=== PATIENT | female | born 1960 | race Caucasian/White ===

== ENCOUNTER → 2020-06-02 09:28 | Outpatient (CLI) | payer OTHER, SELFPAY ==
--- NOTE | ~2020-06-02 | MMUS_ITS ---
EXAMINATION: MM diagnostic [facility] BI w magdi, US breast LT complete HISTORY: Left lump felt by referring physician and patient (with skin marker on mammogram) TECHNIQUE: Bilateral ML, MLO and cc and left spot ML, MLO and cc 3-D tomosynthesis images were perfor med and synthetic 2-D images were generated. CAD analysis was submitted and interpreted. High resolut ion complete left breast ultrasound was performed. COMPARISON: Serial mammogram examinations dating back to 02/08/2015 BREAST PARENCHYMAL COMPOSITION: There are scattered areas of fibroglandular density. FINDINGS: MAMMOGRAPHIC FINDINGS: There is stable fibroglandular asymmetry. There is fatty tissue in the area of the clinical complaint of left breast lump based upon assessment of the position of the marker overlying the posterior inner left breast on craniocaudal projection. No interval suspicious mass or architectural distortion, malignant calcification, skin thickening or retraction of either breast is evident compared to prior studies. There is minimal benign calcificati on. ULTRASOUND: There is no evidence of focal abnormal solid or cystic lesion in the area of clinical complaint at 6: 00 7 cm from nipple. There is a parallel circumscribed hypoechoic or sonolucent 2.8 x 4.7 mm lesion at 10:00 4 cm from nip ple, without internal vascularity or suspicious shadowing, likely benign IMPRESSION: 1. No mammographic evidence of malignancy 2. Routine mammographic screening is recommended. BI-RADS Category 2: Benign finding(s). Reviewed, dictated and finalized at location A. IMPRESSION: 1. No mammographic evidence of malignancy 2. Routine mammographic screening is recommended. BI-RADS Category 2: Benign finding(s).
== END ==
PROVIDERS: Visit Provider Nurse Practitioner Obstetrics & Gynecology
DX: N63.20 Unspecified lump in the left breast, unspecified quadrant (principal); R92.2 Inconclusive mammogram
CPT/HCPCS: 76641; 77062; 77066; G0279

== ENCOUNTER → 2021-06-04 17:45 | Outpatient (CLI) | payer OTHER, SELFPAY ==
--- NOTE | ~2021-06-04 | MM_ITS ---
EXAMINATION: MM screening [facility] BI w magdi HISTORY: Screening TECHNIQUE: Craniocaudal and mediolateral oblique 3-D tomosynthesis images were obtained and synthetic 2-D images were generated. CAD analysis was submitted and interpreted. COMPARISON: Comparison to multiple prior studies sequentially, with oldest reviewed study dated 11/2014. BREAST PARENCHYMAL COMPOSITION: There are scattered areas of fibroglandular density. FINDINGS: There is a small developing mass in the upper inner quadrant of the left breast. The right breast is stable without evidence for malignancy. IMPRESSION: 1. Developing small left breast mass, upper inner quadrant. There is a possible adjacent focal asymme try, slightly more prominent than on prior examination. 2. Additional mammographic views and possible breast ultrasound are recommended. BI-RADS Category 0: Incomplete: Needs additional imaging evaluation. Reviewed, dictated and finalized at location A. IMPRESSION: 1. Developing small left breast mass, upper inner quadrant. There is a possible adjacent focal asymmetry, slightly more prominent than on prior examination. 2. Additional mammographic views and possible breast ultrasound are recommended . BI-RADS Category 0: Incomplete: Needs additional imaging evaluation.
== END ==
PROVIDERS: PCP Nurse Practitioner Family; Visit Provider Nurse Practitioner Obstetrics & Gynecology
DX: Z12.31 Encounter for screening mammogram for malignant neoplasm of breast (principal); R92.8 Other abnormal and inconclusive findings on diagnostic imaging of breast
CPT/HCPCS: 77063; 77067

== ENCOUNTER → 2021-07-06 08:17 | Outpatient (CLI) | payer OTHER, SELFPAY ==
--- NOTE | ~2021-07-06 | MMUS_ITS ---
EXAMINATION: MM diagnostic gerald LT w magdi, US breast LT limited HISTORY: Developing small left breast mass and adjacent asymmetry, upper inner quadrant reported on screening mammogram TECHNIQUE: Additional 3-D tomosynthesis images of the left breast were performed and synthetic 2-D im ages were generated. CAD analysis was submitted and interpreted. High resolution upper inner quadrant left breast ultrasound was performed. COMPARISON: 06/04/2021 bilateral screening mammogram 06/02/2020 bilateral diagnostic mammogram and left complete ultrasound 05/27/2019, 05/25/2018, 05/21/2017, 03/18/2016 bilateral screening mammograms FINDINGS: MAMMOGRAPHIC FINDINGS: There are 2 approximately 6-7 mm nodular appearing areas in the mid to upper inner left breast. ULTRASOUND: 10:00 4 cm from nipple: 5 x 2.2 x 2.7 mm parallel circumscribed hypoechoic lesion without internal va scularity or posterior shadowing, most likely benign. This is not significantly changed since 06/02/20 20. IMPRESSION: 1. Benign finding 2. Routine annual mammographic screening is recommended BI-RADS Category 2: Benign finding(s). Reviewed, dictated and finalized at location A. IMPRESSION: 1. Benign finding 2. Routine annual mammographic screening is recommended BI-RADS Category 2: Benign finding(s).
== END ==
PROVIDERS: PCP Nurse Practitioner Family; Visit Provider Nurse Practitioner Obstetrics & Gynecology
DX: R92.8 Other abnormal and inconclusive findings on diagnostic imaging of breast (principal)
CPT/HCPCS: 76642; 77061; 77065; G0279

== ENCOUNTER 2022-05-09 18:17 | Emergency (ER) | payer OTHER, SELFPAY ==
[2022-05-09 18:50] VITALS: BP 134/74; PULSE 91; RESP 16; TEMP 36.6; O2SAT 98
--- NOTE | 2022-05-09 19:42 | PC.NURSE ---
Addendum entered by Syeda Carreon RN 05/09/22 19:45: Pt has steady gait and no obvious distress noted at this time. Pt verbalized I'm going to try some other ER Original Note: Pt left ED lobby at this time. Pt A&Ox4, reps even non-labored.
== END 2022-05-09 19:42 | disposition left against medical advice (07) ==
LOC: ANHED 19:55
PROVIDERS: PCP Nurse Practitioner Family
DX: S61.210A Laceration without foreign body of right index finger without damage to nail, initial encounter (principal); W26.8XXA Contact with other sharp object(s), not elsewhere classified, initial encounter; Y93.G1 Activity, food preparation and clean up
CPT/HCPCS: 99199

== ENCOUNTER → 2022-06-28 14:50 | Outpatient (CLI) | payer BC, SELFPAY ==
--- NOTE | ~2022-06-28 | MM_ITS ---
EXAMINATION: MM screening [facility] BI w magdi HISTORY: Screening TECHNIQUE: Craniocaudal and mediolateral oblique 3-D tomosynthesis images were obtained and synthetic 2-D images were generated. CAD analysis was submitted and interpreted. COMPARISON: Comparison to multiple prior studies sequentially, with oldest reviewed study dated 05/21. BREAST PARENCHYMAL COMPOSITION: There are scattered areas of fibroglandular density. FINDINGS: Breast asymmetries are unchanged. There is no evidence of suspicious mass, calcification, o r architectural distortion to suggest malignancy in either breast. There has been no suspicious inter thelma change. IMPRESSION: 1. No mammographic evidence of malignancy. 2. Recommend routine screening mammography in one year. BI-RADS Category 1: Negative Reviewed, dictated and finalized at location A.
== END ==
PROVIDERS: PCP Nurse Practitioner Family; Visit Provider Nurse Practitioner Obstetrics & Gynecology
DX: Z12.31 Encounter for screening mammogram for malignant neoplasm of breast (principal)
CPT/HCPCS: 77063; 77067

== ENCOUNTER → 2023-07-11 13:42 | Outpatient (CLI) | payer BC, SELFPAY ==
--- NOTE | ~2023-07-11 | MM_ITS ---
EXAMINATION: MM screening [facility] BI w magdi HISTORY: Screening mammogram TECHNIQUE: Craniocaudal and mediolateral oblique 3-D tomosynthesis images were obtained and synthetic 2-D images were generated. CAD analysis was submitted and interpreted. COMPARISON: 06/28/2022, 07/06/2021, 06/04/2021, 06/02/2020 BREAST PARENCHYMAL COMPOSITION: There are scattered areas of fibroglandular density. FINDINGS: No suspicious mass, calcification, or architectural distortion are identified in either lea ast to suggest malignancy. There has been no suspicious interval change. IMPRESSION: 1. No mammographic evidence of malignancy. 2. Recommend routine screening mammography in one year. BI-RADS Category 1: Negative Reviewed, dictated and finalized at location A.
== END ==
PROVIDERS: PCP Nurse Practitioner Family; Visit Provider Nurse Practitioner Obstetrics & Gynecology
DX: Z12.31 Encounter for screening mammogram for malignant neoplasm of breast (principal)
CPT/HCPCS: 77063; 77067

== ENCOUNTER 2024-07-28 12:33 | Outpatient (CLI) | payer MEDICARE, SELFPAY ==
--- NOTE | ~2024-07-28 | MM_ITS ---
EXAMINATION: MM screening [facility] BI w magdi HISTORY: Screening mammogram TECHNIQUE: Craniocaudal and mediolateral oblique 3-D tomosynthesis images were obtained and synthetic 2-D images were generated. CAD analysis was submitted and interpreted. COMPARISON: 07/11/2023, 06/28/2022, 06/04/2021 BREAST PARENCHYMAL COMPOSITION:Not Dense. There are scattered areas of fibroglandular density. FINDINGS: No suspicious mass, calcification, or architectural distortion are identified in either lea ast to suggest malignancy. There has been no suspicious interval change. IMPRESSION: No mammographic evidence of malignancy. Recommend routine screening mammography in one year. BI-RADS Category 1: Negative Reviewed, dictated and finalized at location . [employer]
== END 2024-07-28 12:34 | disposition home or self-care (01) ==
LOC: CHSIMG 12:37
PROVIDERS: PCP Nurse Practitioner Family; Visit Provider Nurse Practitioner Family
DX: Z12.31 Encounter for screening mammogram for malignant neoplasm of breast (principal)
CPT/HCPCS: 77063; 77067

== ENCOUNTER 2024-09-23 12:38 | Outpatient (CLI) | payer MEDICARE, SELFPAY ==
--- NOTE | ~2024-09-23 | DEXA_ITS ---
Bone Density Report Name: CHARLES TEJADA Age: 64 Sex: Female Ethnicity: White Date of : 1960 Indication: postmenopausal; screening for osteoporosis; height loss; Referring Provider: INDIA CAMPOVERDE Study: Bone densitometry was performed. Exam Date: September 23, 2024 Accession number: [id number] Bone Density: Region BMD T-score Z-score Classification AP Spine(L1-L4) 1.312 2.4 4.2 Normal Femoral Neck (Left) 0.890 0.4 1.9 Normal Total Hip (Left) 1.173 1.9 3.2 Normal Femoral Neck (Right) 0.854 0.0 1.6 Normal Total Hip (Right) 1.166 1.8 3.1 Normal Femoral Neck Mean 0.872 0.2 1.8 Normal Total Hip Mean 1.169 1.9 3.1 Normal World Health Organization criteria for BMD impression classify patients as: Normal (T-score at or above -1.0), Osteopenia (T-score between -1.0 and -2.5), or Osteoporosis (T-score at or below -2.5). 10-year Fracture Risk: FRAX not reported because: All T-scores for Spine Total, Hip Total, Femoral Neck at or above -1.0 Clinical Information Provided by Patient: Smokes Has used the following medications: Vitamin D, multivitamin Patient maximum height was 66 Menopause Age: 41 Drinks caffeinated beverages Onset of menses at age 11 Number of children 3 Impression: The patient has normal bone mass. The patient has risk factors, including: smoking. Discussion: BONE DENSITY IS ABOVE THE MINIMUM DESIRABLE LEVEL AT ALL SKELETAL SITES TESTED. This patient?s bone mineral density is above the minimum desirable level (T-score -1.0 or better) at all sites measured. The patient should follow a healthful lifestyle (good nutrition with adequate calcium and vitamin D, and appropriate weight-bearing exercise). Follow-Up: Consider repeating this study in 5 years or sooner if there is some new clinical indication. Reported by: DIANNE on 09/23/2024 12:58:00 PM. Reviewed, dictated and finalized at location A.
== END 2024-09-23 12:39 | disposition home or self-care (01) ==
LOC: CHSIMG 12:40
PROVIDERS: PCP Nurse Practitioner Family; Visit Provider Nurse Practitioner Family
DX: Z78.0 Asymptomatic menopausal state (principal)
CPT/HCPCS: 77080

== ENCOUNTER 2024-10-25 11:28 | Emergency (ER) | payer MEDICARE, SELFPAY ==
[2024-10-25 12:04] VITALS: BP 117/56; PULSE 92; RESP 16; TEMP 37.4; O2SAT 98
--- NOTE | 2024-10-25 12:14 | ED_ITS ---
HPI - URI/Sore Throat General Chief Complaint: Upper Respiratory Infection Stated Complaint: flu symptoms Time Seen by Provider: 10/25/24 12:14 Source: patient and RN notes reviewed Mode of arrival: ambulatory Limitations: no limitations History of Present Illness HPI Narrative: 64-year-old female presented for complaint of fatigue, headache, body aches, sinus pressure/congestion, cough, fever/chills. Onset 3 days. Denies sob, wheezing, n/v/d. Taking Mucinex and Tylenol. MD elicited complaint: cough Related Data Allergies Allergy/AdvReac Type Severity Reaction Status Date / Time No Known Allergies Allergy Verified 10/25/24 12:03 Review of Systems Review of Systems: per HPI [facility] Past Medical History Medical History Hyperlipidemia Surgical History Surgical History Hx of cholecystectomy Family History Family History Father Cancer Social History Social History Social History: patient declined SDOH 05/11/24 Smoking status: Never smoker Alcohol intake: current Substance use: never Do You Feel Safe in your Home?: Yes Lack of Transportation: No Lack of Food: Never True Current Housing: I Have Housing Concerned About Future Housing: No Difficulty Paying Gas/Electric Bills: No Difficulty Paying for Meds: No Currently Unemployed: No Education: Don't Know Difficulty w/ Childcare or Family Care: No Living arrangements: with family Additional living arrangements comments: Occupation/Education: retired Spiritual care concerns: No Agree to blood products: Yes Exam Narrative: GENERAL: Mildly Ill-appearing, nontoxic no acute distress. EYES: PERRLA, conjunctivae clear ENT: Mucous membranes moist. TM pearly champagne with dull light reflex bilaterally; no tragal tenderness. Oropharynx not erythematous without lesions or exudate, no drooling, no hoarseness, no trismus, uvula midline. No tripod positioning, muffled voice, soft palate or pharyngeal wall bulging NECK: Supple. No lymphadenopathy CHEST: Clear to auscultation, breath sounds equal. No wheezing, rhonchi, rales, or stridor. No respiratory distress, speaks in full sentences. HEART: Regular rate and rhythm. No murmur heard. SKIN: Warm, dry, no rash. NEURO: Alert and oriented x3. PSYCH: Normal mood and affect Course Course Emergency Course: Patient is aware of diagnosis, understands and agrees to treatment plan. Anticipatory guidance given. Patient agrees to follow-up as directed and is aware of reasons to seek care at the emergency department. Portions of this record may have been created with voice recognition software Level of Care: Express Care Visit Vital Signs Vital signs: Vital Signs Temperature 99.4 F 10/25/24 12:04 Pulse Rate 92 10/25/24 12:04 Respiratory Rate 16 10/25/24 12:04 Blood Pressure 117/56 L 10/25/24 12:04 Pulse Oximetry 98 10/25/24 12:04 Oxygen Delivery Room Air 10/25/24 12:04 Temperature 99.4 F 10/25/24 12:04 Pulse Rate 92 10/25/24 12:04 Respiratory Rate 16 10/25/24 12:04 Blood Pressure 117/56 L 10/25/24 12:04 Pulse Oximetry 98 10/25/24 12:04 Oxygen Delivery Room Air 10/25/24 12:04 reviewed MDM - URI/Sore Throat MDM Narrative Medical decision making narrative: Negative flu, COVID, Discussed physical exam findings. Advised supportive measures and signs/symptoms to go to the ER. Pt is appropriate for outpt treatment and f/u. Differential Diagnosis Differential diagnosis: Likely upper respiratory infection, sinusitis and viral infection Discharge Plan Discharge Clinical Impression: Viral infection Patient Disposition: Home, Self-Care Condition: Stable Instructions: Antibiotic Form, Upper Respiratory Infection (ED) Additional Instructions: Flu and COVID negative. if symptoms are due to a viral illness, it is not treated with antibiotics. Viral symptoms can be present for up to 10-14 days. Recommendations: Flonase spray and Zyrtec for sinus congestion Cough syrup may cause drowsiness; avoid driving or take it at night time. Tylenol every 8 hours as needed for pain/fever Soft foods, cool liquids, warm tea. Gargle with warm saltwater twice a day. Chloraseptic spray and throat lozenges. Rest and stay hydrated. --Follow up with your PCP --Go to the ER immediately if you cannot swallow your saliva, trouble lea athing/wheezing, throat swelling, pain is persistent and severe Patient Language: Colombian Prescriptions: No Action rosuvastatin 5 mg tablet 5 mg PO DAILY Qty: 90 1RF naproxen 500 mg tablet 500 mg PO BID PRN (Reason: pain) Qty: 1 0RF cetirizine [Zyrtec] 10 mg tablet 10 mg PO DAILY Qty: 1 0RF estradiol 0.5 mg tablet 0.5 mg PO DAILY Qty: 1 0RF Rx Instructions: Per [facility] multivitamin Tablet 1 tablet PO DAILY Qty: 1 0RF methylprednisolone [Medrol (Oliver)] 4 mg tablets,dose pack See Rx Instructions PO PER PKG DIR Qty: 21 0RF Rx Instructions: PO PER PKG DIR azithromycin 250 mg tablet See Rx Instructions PO .COMPLEX Qty: 6 0RF Rx Instructions: take 500 mg today (day 1), then 250 mg for 4 days (days 2-5) PO Follow-up/Referrals: Vivian Gomez APRN [Primary Care Provider] - Time of Disposition: 12:31
[2024-10-25 13:36] LABS: EDCOVIDSCREEN Negative (Negative); EDINFLUASCREEN Negative (Negative); EDINFLUBSCREEN Negative (Negative)
--- OUTSIDE RECORDS SUMMARY | 2024-10-25 14:27 | XMS_ITS | Data Portability ---
Author Organization [facility] [place] Address [address] [place] [address] [place] [address] Assessment Encounter Date Assessment Date Assessment LastModified by Organization Details LastModified Time 05/22/2023 05/22/2023 Annual gynecological exam performed. Patient will come back in a year unless there are new symptoms. [email or web address] Not available 05/22/2023 16:03:42 08/12/2024 08/12/2024 Annual gynecological exam performed. Patient will come back in a year unless there are new symptoms. [email or web address] Not available 08/12/2024 14:03:33 Plan of Treatment Reminders Order Date Submit Date Provider Last Modified By Organization Details Last Modified Time Details Appointments None recorded. Lab None recorded. Referral None recorded. Procedures None recorded. Surgeries dilation and curettage with hysteroscop y (SURG) 2022 023 [email or web address] [facility], [address], [address], [place], [address], 3 10:58:48 Imaging US, transvagina l 2023 024 [email or web address] [place], [address], [place], [address], 4 19:53:43 DEXA, axial skeleton + vertebral fracture assessment 2023 024 [email or web address] Not available 15:17:00 US, pelvis, complete 2023 024 [facility], [address], [address], [place], [address], 4 04:01:51 MAMMO, screening, bilateral 2022 023 [facility] [place], [address], [place], [address], 3 17:34:15 Medication Orders estradiol 0.025 mg/24 hr semiweekly transdermal patch 2023 024 [facility]2510, [address], [place], [address], 4 15:14:19 Prometrium 100 mg capsule 2023 024 [facility]2510, [address], [place], [address], 4 15:14:19 estradiol 0.5 mg tablet 2022 023 [facility], [address], [place], [place], [id number], 4 15:14:21 Prometrium 200 mg capsule 2022 023 [facility] #31617, [address], [place], [place], [id number], 4 15:14:29 Granby 10 mg-325 mg tablet 2022 023 [facility] #37350, [address], [place], [place], [id number], 3 15:49:26 Xanax 0.5 mg tablet 2022 023 [facility] #06213, [address] , [place], [place], [id number], 3 15:50:34 Zofran 8 mg tablet 2022 023 [facility]15568, [address], [place], [place], [id number], 3 15:50:53 ibuprofen 800 mg tablet 2022 023 [facility] #09999, [address], [place], [place], [id number], 3 15:49:33 progesteron e micronized 100 mg capsule 2022 023 [email or web address] [facility]72516, [address], [place], [place], [id number], 3 16:20:49 Patient TargetsNo targets recorded. Patient InstructionsNo instructions recorded. Reason for Referral None Reported. Results Created Date Observation Date Name Description Value Unit Range Abnormal Flag Note LastModifiedBy Organization Detail LastModifiedTime 10/14/1910/14/2022 SURGI BRISEIDA PATHO LOGY surgical pathology SEE RESULT S BELOW CASE REPOR T: Surgi briseida Patho logy Repor t Case: [id number] [address] dorado Provi tomer: Leona Dumas MD Colle cted: 10/14 1437 Order ing Locat ion: [place] Patho logy Recei zo: 10/15 0228 Patho logis t: Hans Snyder MD Speci men: Endom etriu m, EMB FINAL DIAGN OSIS: Endom etriu m, biops y: -Supe rfici al strip s of inact rivera endom etriu m. -No evide nce of hyper plasi a or malig bill . -Frag ments of benig n ectoc ervic al mucos a. Wiliam alex by Hans Snyder MD on 023 at 2:17 PM ----- ----- ----- ----- ----- ----- ----- ----- ----- ----- ----- ----- ----- ----- ----- ----- ----- ---- CLINI BRISEIDA INFOR MATTABBY N: icd 10 n93.9 MICRO SCOPI C DESCR IPTIO N: A micro scopi c exami natio n was perfo rmed. GROSS DESCR IPTIO N: A. Endom etriu m. The speci men is label ed with the patie nt's name, le raphkylah cs and EMB . Recei zo in forma kiersten is a 2.0 x 2.0 x 0.5 [address] of mucus and dark red tissu e. The entir e speci men is submi tted in one casse tte. Gross ed by Deepa black Not Available [facility] (Lab) [address], [place], [address], 10/15/2022 15:20:26 05/23/20 23 05/23/2023 IMAGE GUIDE D PAP AND HPV REGAR DLESS image guided Pap, HPV regardless of Pap result SEE RESULT S BELOW CASE REPOR T: Cytol ogy Gynec ologi briseida Repor t Case: [id number] Provi tomer: Beny Jacques Colle cted: 05/23 1341 TRANSPORTATION MANAGER Order ing Locat ion: [place] Patho logy Recei zo: 05/26 0656 First Scree n: Carla Shah , CT Rescr een: Viet Lira , CT Speci men: Scree jori Pap - Image d, Cervi x STATE MENT OF ADEQU ACY: Satis facto ry for evalu ation Trans forma tion zone compo nent absen t The absen ce of an endoc ervic al compo nent was confi rmed by an addit ional scree ner. FINAL DIAGN OSIS: Negat rivera for Intra epith elial Tyron cohen or Jarret khan (NIL) . Wiliam serrano d by Viet Lira , NOREEN on 2022 at 2:42 PM ----- ----- ----- ----- ----- ----- ----- ----- ----- ----- ----- ----- ----- ----- ----- ----- ----- ---- HPV RESUL TS: HPV mRNA E6/E7 : No HPV mRNA Detec lilli NOTE: This high risk HPV mRNA assay detec ts fourt een high- risk HPV types (16, 18, 31, 33, 35, 39, 45, 51, 52, 56, 58, 59, 66, 68) witho ut diffe renti ation . COMME NT: This speci men was revie wed by a Cytot echno logis t and/o r Patho logis t (as indic ated in this repor t) after evalu ation using the Thinp rep Imagi ng Syste m. CLINI BRISEIDA INFOR MATIO N: Menst rual Statu s: LMP (if appli cable ): Clini briseida Histo ry/Pr eviou s Pap: Type of Neopl scar (if appli cable ): Signi fican t Clini briseida Findi ngs: Other Histo ry: Hormo elie (if appli cable ): PAP EDUCA PADMINI L NOTE: The Pap Test is a scree jori test with an inher ent false negat rivera rate. Liqui d-bas ed sampl ing may decre ase, but will not elimi isaiah, false negat rivera resul ts. A negat rivera resul t does not precl ude the prese nce and/o r devel opmen t of disea se, since the prese nce of abnor mal cells in the sampl e depen ds on the locat ion of the lesio n and sampl ing techn ique. Summer nued regul ar scree jori is the best metho d of cance r preve ntion . If repor lilli cytol ogic findi ng do not corre late with physi briseida and/o r histo rical findi ngs, furth er inves tigat ion is recom carolyn alex, as clini veena patel nted. Not Available [facility] (Lab) [address], [place], [address], 05/27/2023 15:46:55 08/12/20 24 08/12/2024 IMAGE GUIDE D PAP AND HPV REGAR DLESS image guided Pap, HPV regardless of Pap result SEE RESULT S BELOW CASE REPOR T: Cytol ogy Gynec ologi briseida Repor t Case: [id number] Provi tomer: Alyssa Ayers, BEAR Colle cted: 08/12 1411 Order ing Locat ion: [place] Patho loggela Recei zo: 08/13 0845 First Scree n: Juan Manuel Mendoza ed, CT Speci men: Carline hsieh Pap - Image d, Cervi x STATE MENT OF ADEQU ACY: Satis facto ry for evalu ation Trans forma tion zone compo nent absen t ----- ----- ----- ----- ----- ----- ----- ----- ----- ----- ----- ----- ----- ----- ----- ----- ----- ---- FINAL DIAGN OSIS: Negat rivera for Intra epith elial Tyron cohen or Jarret khan (NIL) . Wiliam alex by Juan Manuel Mendoza ed, CT on 08/21 at 7:46 PM ----- ----- ----- ----- ----- ----- ----- ----- ----- ----- ----- ----- ----- ----- ----- ----- ----- ---- HPV RESUL TS: HPV mRNA E6/E7 : No HPV mRNA Detec lilli NOTE: This high risk HPV mRNA assay detec ts fourt een high- risk HPV types (16, 18, 31, 33, 35, 39, 45, 51, 52, 56, 58, 59, 66, 68) witho ut diffe renti ation . COMME NT: This speci men was revie wed by a Cytot echno logis t and/o r Patho logis t (as indic ated in this repor t) after evalu ation using the Thinp rep Imagi ng Syste m. CLINI BRISEIDA INFOR MATIO N: Menst rual Statu s: LMP (if appli cable ): Clini briseida Histo ry/Pr eviou s Pap: Type of Neopl scar (if appli cable ): Signi fican t Clini briseida Findi ngs: Other Histo ry: Hormo elie (if appli cable ): PAP EDUCA PADMINI L NOTE: The Pap Test is a scree jori test with an inher ent false negat rivera rate. Liqui d-bas ed sampl ing may decre ase, but will not elimi isaiah, false negat rivera resul ts. A negat rivera resul t does not precl ude the prese nce and/o r devel opmen t of disea se, since the prese nce of abnor mal cells in the sampl e depen ds on the locat ion of the lesio n and sampl ing techn ique. Summer nued regul ar scree jori is the best metho d of cance r preve ntion . If repor lilli cytol ogic findi ng do not corre late with physi briseida and/o r histo rical findi ngs, furth er inves tigat ion is recom carolyn d, as clini veena warra nted. Not Available [facility] (Lab) [address], [place], [address], 08/21/2024 20:49:41 07/11/20 23 07/11/2023 MAMMO , scree jori, bilat eral No observ ation record ed. [facility] [address], [place], [address], 08/24/2024 16:31:11 08/20/20 24 08/20/2024 US, trans vagin al No observ ation record ed. [email or web address] [place] [address], [place], [address], 08/25/2024 10:30:52 08/20/20 24 08/20/2024 US, trans vagin al No observ ation record ed. [facility] [address], [place], [address], 08/25/2024 10:30:53 Result Notes None recorded. Problems Name Problem SNOMED Code Status Onset Date Resolution Date Notes Provider Name and Address Organization Details Recorded Time Screenin g for malignan t neoplasm of cervix Completed 201405/15/2021 Pap Smear;Pra ctice ID: 0001 Chetna Cline [facility] 17:17:35 Screenin g for malignan t neoplasm of rectum Completed 201405/15/2021 Screening for malignant neoplasms of the rectum;Pr actice ID: 0001 Chetna Cline [facility] 17:17:37 Blood leukocyt e number above referenc e range [id number] Completed 201505/15/2021 Elevated white blood cell count, unspecifi ed;Practi ce ID: 0001 Chetnagela Cline [facility] 17:17:[address] Concept Completed 201505/15/2021 Encntr for rn obgyn exam (general) (routine) w/o abn findings; Practice ID: 0001 Chetna Cline [facility] 17:17:[address] Concept Completed 201605/15/2021 Encntr for general adult medical exam w/o abnormal findings; Practice ID: 0001 Chetna Cline [facility] 17:17:41 Leukocyt osis [id number] Completed 201405/15/2021 LEUKOCYTO SIS NOS;Recor ded Elsewhere : No Locati on: [facility] So urce: EHR Chron ic: N Practic e ID: 0001 Bill able Time: 04:30:00 PM Chetna pruett [facility] 17:17:32 Evaluati on finding Completed 201505/15/2021 Hematuria , unspecifi ed;Record ed Elsewhere : No Locati on: [facility] So urce: EHR Chron ic: N Practic e ID: 0001 Bill able Time: 02:29:08 PM Chetna Cline [facility] 17:17:28 Speciali zed medical examinat ion Completed 201305/15/2021 Gynecolog ical Examinati on;Record ed Elsewhere : No Locati on: [facility] So urce: EHR Chron ic: N Practic e ID: 0001 Bill able Time: 04:30:00 PM Chetna Cline [facility] 17:17:46 Urinary tract infectio us disease [id number] Completed 201105/15/2021 Urinary Tract Infection ;Recorded Elsewhere : No Locati on: [facility] So urce: EHR Chron ic: N Practic e ID: 0001 Bill able Time: 04:00:00 PM Chetna Cline [facility] 17:17:48 Adult health examinat ion Completed 201205/15/2021 Routine Medical Exam;Balaji rded Elsewhere : No Locati on: [facility] So urce: EHR Chron ic: N Practic e ID: 0001 Bill able Time: 04:30:00 PM Chetna pruett [facility] 17:17:23 Overweig ht [id number] Completed 201405/15/2021 Overweigh t;Practic e ID: 0001 Chetna Cline [facility] 17:17:33 Atypical squamous cells of undeterm ined signific ance on cervical Papanico laou smear [id number] Completed 201505/15/2021 Atyp squam cell of undet signfc cyto smr crvx (ASC-US); Recorded Elsewhere : No Locati on: [facility] So urce: EHR Chron ic: N Practic e ID: 0001 Bill able Time: 10:02:14 AM Chetna Cline flynn [facility] 17:17:25 Body mass index 25-29 - overweig ht [id number] Completed 201505/15/2021 Body mass index (BMI) 26.0-26.9 , adult;Rec orded Elsewhere : No Locati on: [facility] So urce: EHR Chron ic: N Practic e ID: 0001 Bill able Time: 04:00:00 PM Chetna Cline flynn [facility] 17:17:27 Problem Notes None recorded. Procedures Surgical History Date Name Laterality Status Provider Name and Address Organization Details Recorded Time 05/23/20 23 Date of Last Pap Smear completed Elva Moreno [facility] 08/12/2024 14:08:02 10/14/19 23 Hysteroscopy completed Dmitri Dumas MD [address], [place], [address], [facility] 10/14/2022 15:21:00 08/28/20 22 Endometrial Biopsy completed Danika Carson [facility]- [address], [place], [address], [facility] 08/28/2022 12:49:13 06/28/20 22 Date of Last Mammogram completed Felicia Beth [facility] 05/22/2023 15:51:49 09/08/19 19 Date of Last Colonoscopy completed Felicia Beth [facility] 05/22/2023 15:53:04 09/08/19 19 Colonoscopy completed Flavia Xochilt [facility] 05/12/2020 12:00:21 03/24/20 18 completed Chetna Cline [facility] 05/15/2021 17:20:25 09/08/19 12 Colonoscopy completed Flavia Lemon [facility] 05/12/2020 12:00:03 [facility]bl[facility] 11:59:47 Imaging Results Imaging Date Name Status LastModified by Organization Details LastModified Time 07/11/2023 MAMMO, screening, bilateral completed [facility] [address], [place], [address], 08/24/2024 16:31:11 08/20/2024 US[facility]aginal [email or web address] [address], [place], [address], 08/25/2024 10:30:52 08/20/2024 US, transvaginal completed [email or web address] [address] [address], [place], [address], 08/25/2024 10:30:53 Procedure Notes None recorded. Medical Equipment None Reported. Allergies Allergen ID Allergen Name Allergen Category Reaction Reaction Severity Criticality Documentation Date Start Date Code Code System Note Provider Name and Address Organization Details Recorded Time 1948 ragweed pollen environme nt Not available Not available Not available 05/12/2020 15231 UNK Flavia Xochilt [facility] 0 11:56:11 No known drug allergies Medications Name Sig Start Date Stop Date Status Note LastModified by Organization Details LastModified Time amoxicill in 500 mg capsule 08/12 completed Not Available Not Available Not Available doxycycli ne hyclate 100 mg capsule TAKE 1 CAPSULE BY MOUTH TWICE A DAY FOR 10 DAYS 08/12 completed Not Available Not Available Not Available azithromy susu 250 mg tablet TK 2 TS PO ON DAY 1, THEN TK 1 T PO D FOR 4 DAYS 05/20 completed Not Available Not Available Not Available ibuprofen 800 mg tablet TAKE 1 TABLET BY MOUTH 2 HOURS BEFORE THE PROCEDUR E 05/22 completed Not Available Not Available Not Available fluconazo le 150 mg tablet TAKE 1 TABLET BY MOUTH TODAY AND ANOTHER TABLET IN 72 HOURS 05/20 completed Not Available Not Available Not Available valacyclo vir 1 gram tablet TAKE 2 TABLETS BY MOUTH EVERY 12 HOURS NEEDED active Not Available Not Available No t Available ondansetr on HCl 8 mg tablet TAKE 1 TABLET BY MOUTH 2 HOURS BEFORE THE PROCEDUR E DIRECTED 05/22 completed Not Available Not Available Not Available phenazopy ridine 200 mg tablet 05/12 completed Not Available Not Available Not Available Zyrtec 10 mg tablet take 1 tablet by oral route every day active Prescrib ed Elsewher e: Yes Loca tion: [facility] odify By: marisabel castillo DateTime : 12/30/19 12 04:00:00 PM Not Available Not Available Not Available estradiol -norethin drone acet 1 mg-0.5 mg tablet TAKE 1 TABLET BY MOUTH DAILY 08/12 completed Not Available Not Available Not Available sulfameth oxazole 800 mg-trimet hoprim 160 mg tablet TAKE 1 TABLET BY MOUTH EVERY 12 HOURS 05/20 completed Not Available Not Available Not Available hydrocodo ne 10 mg-acetam inophen 325 mg tablet TAKE 1 TABLET BY MOUTH 2 HOURS BEFORE PROCEDUR E 05/22 completed Not Available Not Available Not Available terbinafi ne HCl 250 mg tablet 05/12 completed Not Available Not Available Not Available alprazola m 0.5 mg tablet TAKE 1 TABLET BY MOUTH 2 HOURS BEFORE THE PROCEDUR E 05/22 completed Not Available Not Available Not Available meclizine 25 mg tablet TAKE 1 TABLET BY MOUTH THREE TIMES DAILY NEEDED active Not Available Not Available No t Available sulfaceta mide sodium 10 % eye drops 05/22 completed Not Available Not Available Not Available Multiple Vitamin tablet take 1 tablet by oral route every day with food 05/20 completed Prescrib ed Elsewher e: Yes Loca tion: [facility] odify By: marisabel castillo DateTime : 12/30/19 04:00:00 PM Not Available Not Available Not Available neomycin- polymyxin -dexameth 3.5 mg/mL-10, 000 unit/mL-0 .1% eye drops SHAKE LIQUID AND INSTILL 1 DROP IN LEFT EYE FOUR TIMES DAILY 05/16 completed Not Available Not Available Not Available progester one micronize d 200 mg capsule TAKE 1 CAPSULE BY MOUTH EVERY DAY 08/12 completed Not Available Not Available Not Available estradiol 0.5 mg tablet TAKE 1 TABLET BY MOUTH EVERY DAY DIRECTED 08/12 completed Not Available Not Available Not Available methylpre dnisolone 4 mg tablets in a dose pack FOLLOW PACKAGE DIRECTIO NS 05/20 completed Not Available Not Available Not Available progester one micronize d 100 mg capsule Take 1 capsule every day by oral route. active Not Available Not Available No t Available estradiol 0.025 mg/24 hr semiweekl y transderm al patch APPLY 1 PATCH TO SKIN TWICE A WEEK DIRECTED active Not Available Not Available No t Available rosuvasta tin 5 mg tablet TAKE 1 TABLET BY MOUTH EVERY DAY active Not Available Not Available No t Available nitrofura ntoin monohydra te/macroc rystals 100 mg capsule take 1 capsule (100MG) by oral route every 12 hours with food 05/12 completed Not Available Not Available Not Available vitamin E active Not Available Not Juana ilable Not Available Zyrtec 05/16 completed Not Available Not Available Not Available multivita min active Not Available Not Available Not Available Activella 05/22 completed Not Available Not Available Not Available estradiol -norethin drone acet 0.5 mg-0.1 mg tablet TAKE 1 TABLET BY MOUTH EVERY DAY 05/22 completed Not Available Not Available Not Available Vitamin D3 50 mcg (2,000 unit) tablet 03/24 completed Prescrib ed Elsewher e: Yes Loca tion: [facility] odify By: [email or web address] Wicho mauricio DateTime : 03/20/20 04:30:00 PM Not Available Not Available Not Available Vagifem 10 mcg vaginal tablet insert 1 tablet by vaginal route 2 times every week 12/29 completed Prescrib ed Elsewher e: Yes Loca tion: [facility] odify By: tgestefani castillo DateTime : 12/30/19 12 04:00:00 PM Not Available Not Available Not Available Picato 0.015 % topical gel 05/12 completed Not Available Not Available Not Available vitamin E succinate 134 mg (200 unit) tablet 03/20 completed Prescrib ed Elsewher e: Yes Loca tion: [facility] odify By: amkory Yrn luisaunter DateTime : 12/30/19 12 04:00:00 PM Not Available Not Available Not Available Fluzone Quad 60 mcg (15 mcg x 4)/0.5 mL intramusc ular susp. 05/12 completed Not Available Not Available Not Available Vitals Date Recorded Body height Body mass index (BMI) Body weight Systolic blood pressure Diastolic blood pressure Provider Name and Address Organization Details Last Updated DateTime 09/30/2022 165.1 cm 27.1 kg/m2 55702.56 g 108 mm[Hg] 68 mm[Hg] Kristin Mathis [facility] 3 14:49:53 Date Recorded Body height Body mass index (BMI) Body weight Systolic blood pressure Diastolic blood pressure Provider Name and Address Organization Details Last Updated DateTime 10/14/2022 165.1 cm 27.1 kg/m2 64103.56 g 122 mm[Hg] 62 mm[Hg] [facility] 3 14:26:26 Date Recorded Body height Body mass index (BMI) Body weight Systolic blood pressure Diastolic blood pressure Provider Name and Address Organization Details Last Updated DateTime 05/22/2023 165.1 cm 26.3 kg/m2 86003.59 g 140 mm[Hg] 90 mm[Hg] Felicia [facility] 3 16:07:57 Date Recorded Systolic blood pressure Diastolic blood pressure Provider Name and Address Organization Details Last Updated DateTime 05/22/2023 124 mm[Hg] 76 mm[Hg] Danika Carson, [facility]- [address], [place], [address], [facility] 05/22/2023 17:04:50 Date Recorded Body height Body mass index (BMI) Body weight Systolic blood pressure Diastolic blood pressure Provider Name and Address Organization Details Last Updated DateTime 08/12/2024 165.1 cm 27.1 kg/m2 57707.56 g 108 mm[Hg] 70 mm[Hg] Elva Moreno [facility] 14:07:24 Social History Question Answer Notes LastModified by Organizat ion Details LastModified Time Tobacco Smoking Status Never Smoker Kiara Castañeda flynn, [facility] 10/14/2022 14:16:14 Do You Have An Advance Directive? No Information not available 05/16/2021 What Is Your Level Of Alcohol Consumption? Occasional [id number] Information not available 07/11/2020 Are You Blind Or Do You Have Difficulty Seeing? No Information not available 05/16/2021 What Is Your Level Of Caffeine Consumption? Moderate Information not available 05/16/2021 How Much Tobacco Do You Chew? None Information not available 05/16/2021 In The 14 Days Before Symptom Onset, Have You Had Close Contact With A Laboratory-confir med COVID-19 While That Case Was Ill? No Information not available 05/16/2021 In The 14 Days Before Symptom Onset, Have You Had Close Contact With A Person Who Is Under Investigation For COVID-19 While That Person Was Ill? No Information not available 05/16/2021 Have You Been To An Area Known To Be High Risk For COVID-19? No Information not available 05/16/2021 Are You Deaf Or Do You Have Serious Difficulty Hearing? No Information not available 05/16/2021 What Type Of Diet Are You Following? REGULAR Information not available 05/16/2021 What Is The Highest Grade Or Level Of School You Have Completed Or The Highest Degree You Have Received? 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 Yes Information not available 05/16/2021 Do You Use Protection During Sex? No Information not available 05/16/2021 Do You Use Your Seat Belt Or Car Seat Routinely? Yes Information not available 05/16/2021 Do You Have Smoke And Carbon Monoxide Detectors In Your Home? Yes Information not available 05/16/2021 How Much Tobacco Do You Smoke? No Information not available 05/16/2021 Do You Feel Stressed (tense, Restless, Nervous, Or Anxious, Or Unable To Sleep At Night)? [id number] Information not available 05/16/2021 Do You Use Any Illicit Or Recreational Drugs? No Information not available 05/16/2021 Do You Use Sunscreen Routinely? Yes Information not available 05/16/2021 Have You Used IV Drugs? No Information not available 05/16/2021 Sex: Female Functional Status Question Answer Note LastModified by Organizat ion Details LastModified Time Do you have difficulty walking or climbing stairs? No [email or web address] Information not available 10/14/2022 Are you able to walk? YESWOREST Information not available 05/16/2021 Are you able to care for yourself? Yes [email or web address] Information not available 10/14/2022 Do you have difficulty dressing or bathing? No [email or web address] Information not available 10/14/2022 What is your exercise level? Moderate Information not available 05/16/2021 Mental Status None recorded. Family History Relationship Description Onset Age of this Age Resolved Age Notes LastModified by Organization Details LastModified Time Father Malignant tumor of colon jgumber Not available 2019 11:58:27 Maternal Grandmother Diabetes mellitus jgumber Not available 2019 11:58:40 Medical History Condition Response Allergies (Food, seasonal, environmental ) Y History of STI Y High Cholesterol Y Gynecological History Statement/Question Response Abnormal Pap N Date of Last Mammogram 06/28/2022 Date of LMP 03/22/2012 On BCP's at Conception? N N STIs/STDs N Was last menstrual period normal N HPV Vaccine N 03/24/2018 14 Current Control Method Menopause Age at First Child 40 Date of Last Colonoscopy 09/08/2018 Sexually Active? Y Age of first menstrual cycle 50 Date of Last Pap Smear 05/23/2023 Sexual Problems? N N Obstetrics History GPAL:G 4 P 0 0 1 3 Type Value Spontaneous 1 Living 3 Total 4 Past Encounters Encounter ID Performer Location Encounter Start Date Encounter Closed Date Diagnosis/Indication Diagnosis SNOMED-CT Code Diagnosis ICD10 Code Diagnosis Note [id number] Danika Carson MAN [facility] [address] [address] 05/12/2020 11:41:34 05/12/2020 12:33:04 Mass of left breast [id number] N63.20 Z12.31 Gynecologi c examination [id number] Z01.419 Take Calcium with Vitamin D 12-1500mg daily. Do monthly self breast exams. It is advised to get annual flu shot in the fall and she could obtain at [facility] or [facility]. If you haven't received the Tdap vaccine in the last 10 years you should obtain one as well. Have mammogram yearly, bone density every 2-3 years and colonoscop y every 5-10 years depending on findings and history. Engage in daily exercise of low impact aerobic exercise 45-60 minutes 4-5 times weekly. Avoid tobacco and illicit drugs as well as using moderation with alcohol intake less than 1-2 8 oz beverages daily. This lifestyle behavior pattern will lead to less health conditions and longer life span. If BMI greater than 25 weight watchers or dietary consult advised. Questions have been answered. Patient appears to understand instructio ns, but if you have any further questions call or respond to this email Climacteric flushing [phone] [id number] N95.1 Taking HRT every other day. WOrking towards weaning off this therapy. With her health Hx & current state of health we agreed to continue HRT this year doing every other day. Then will regroup next year to further wean down/off. We reviewed HRT risks/bene fits. We discussed Menopausal Hormone therapy (MHT) for women with intact uterus with the goals of reliving vaso-motor sx's using estrogen/p rogestin therapy (EPT) using lowest doses for shortest duration in women 40-59yo. Contraindi cations include: Hx of DVT or thrombolic events, High cholestero l, Hx of breast cancer, known CHD, active liver disease, unexplaine d vag bleeding, high risk endometria l cancer, TIA. Side effects can include but are not limited to: Irregular vag bleeding,, breast tenderness , nausea, weight changes, libido changes, nausea. Adverse Rxn: Elevated BP migraine w/ visual changes, breast cancer dx, LA/stroke, DVT/PE, Endometria l cancer. Please contact office with any new or worsening side effects or adverse reactions. Or if a medical emergency please go to nearest ED/[facility]ency care for further evaluation . [id number] Danika Carson [facility] [address] [address] 05/16/2021 16:36:14 05/16/2021 18:22:13 Gynecologic examination [id number] Z01.419 Take Calcium with Vitamin D 12-1500mg daily. Do monthly self breast exams. It is advised to get annual flu shot in the fall and she could obtain at [facility] or [facility] care clinic. If you haven't received the Tdap vaccine in the last 10 years you should obtain one as well. Have mammogram yearly, bone density every 2-3 years and colonoscop y every 5-10 years depending on findings and history. Engage in daily exercise of low impact aerobic exercise 45-60 minutes 4-5 times weekly. Avoid tobacco and illicit drugs as well as using moderation with alcohol intake less than 1-2 8 oz beverages daily. This lifestyle behavior pattern will lead to less health conditions and longer life span. If BMI greater than 25 weight watchers or dietary consult advised. Questions have been answered. Patient appears to understand instructio ns, but if you have any further questions call or respond to this email Pap/hpv sent (pt preference )STD declinedMa mmo orderedDex a--decline d as stating insurance will not cover this test.Last dex 2018 wnlColon-U TD Menopausal symptom 36564 002 N95.1 Tried to wean off last year but kept having hot flashes, irritabili ty return.We again discussed R/B's of continuing this HRT therapy. e understand s the risks & opts to continue.S he will continue taking daily vs taking every other day as she was last year. Urinary symptoms [id number] 08 R39.9 [id number] Danika Carson [facility] [address] [address] 05/20/2022 11:56:53 05/20/2022 12:20:40 Gynecologic examination [id number] Z01.419 Z11.51 Take Calcium with Vitamin D 12-1500mg daily. Do monthly self breast exams. It is advised to get annual flu shot in the fall and she could obtain at [facility] or [facility] care clinic. If you haven't received the Tdap vaccine in the last 10 years you should obtain one as well. Have mammogram yearly, bone density every 2-3 years and colonoscop y every 5-10 years depending on findings and history. Engage in daily exercise of low impact aerobic exercise 45-60 minutes 4-5 times weekly. Avoid tobacco and illicit drugs as well as using moderation with alcohol intake less than 1-2 8 oz beverages daily. This lifestyle behavior pattern will lead to less health conditions and longer life span. If BMI greater than 25 weight watchers or dietary consult advised. Questions have been answered. Patient appears to understand instructio ns, but if you have any further questions call or respond to this email Pap/hpv sentSTD Screen declinedGe netic Screen discussedC olon Screen UTD PCPDexa Screen PCPRoutine Labs PCPMammo ordered Hormone re placement therapy [id number] Z79.890 N95.1 Counseled on the following: Females >10yrs past menopause (& age 60yo+) are generally not good candidates for starting (1st use) systemic HT. Decisions to continue systemic HT > a decade past menopause (or past age 60yo) requires balancing R/B's; & individual ized needs. Non-hormon al options may be more appropriat e for females >10yrs past menopause. [id number] Danika Carson [facility] [address] [address] 08/19/2022 09:54:20 08/19/2022 11:08:11 Abnormal uterine bleeding [id number] 9100 N93.9 PMB x 2wks spotting, brownishCh edward TVUSCheck labsHaving labs drawn PCP-will bring resultsF/U to discuss US/labs & need for possible EMBx.NOTE: on E/P HRT low dose Understand s PMB can pose risks precancer/ cancers especially with use of HRT which is why further evaluation is required. Agreeable Patient is to contact office or go to nearest ED/Urgent care if fever >/= 100.1, pain, excessive bleeding, unusual drainage or swelling in area of concern; or experienci ng worsening sx's or new onset of concerning sx's. Understand ing verbalized . All questions answered to patient satisfacti on. [id number] Asiya Cline [facility] [address] [address] 08/26/2022 10:21:26 08/26/2022 11:11:28 Postmenopausal bleeding 86192349 N95.0 [id number] [facility] [address] [address] 08/28/2022 12:09:39 08/28/2022 12:50:20 Postmenopausal bleeding 20854084 N95.0 Reviewed US results today.Not further sx's but recommende d EMBx to confirm no issues including precancers /cancers.P rocedure reviewed/c onsent signed.EMB x completed todayWill reach out with results & decide if changes need to be made with HRT she wishes to continue if appropriat e. Time spent in visit is a total of 15 mins with at least 50% of visit consisting of counseling and review of plan of care not including time spent on procedure. [id number] Dmitri Dumas MD [facility] [address] [address] 09/30/2022 14:19:06 09/30/2022 16:22:45 Postmenopausal bleeding 36207981 N95.0 this patient is a 62-year-ol d female with a episode of postmenopa usal bleeding. Endometria l biopsy was performed and found to be inadequate . We talked about options. During our discussion we revealed that she is on estrogen replacemen t therapy but is not taking any progestero ne. Discussed the risk of this. This is like the the reason for her bleeding. It is more important to get the biopsy given this issue. We spent over 40 minutes face-to-fa ce. Made a decision to perform surgery. I explained hysterosco py and D&C to her in great detail detail. I explained risks, benefits, and alternativ es. We talked about endometria l cancer. We talked about postmenopa usal bleeding. Talked about hormone replacemen t therapy and the risks. She will return for hysterosco py D&C. This will be in the office. Preoperative state 51276 002 Z78.9 [id number] Dmitri Dumas MD [facility] [address] [address] 10/14/2022 14:14:02 10/14/2022 15:24:45 Postmenopausal bleeding 28791473 N95.0 Hysterosco py D&C completed without complicati ons. well tolerated [id number] [facility] [address] [address] 05/22/2023 16:01:40 05/22/2023 17:14:34 Gynecologic examination 97265376 Z01.419 Z11.51 Take Calcium with Vitamin D 12-1500mg daily. Do monthly self breast exams. It is advised to get annual flu shot in the fall and she could obtain at [facility] or [facility] care clinic. If you haven't received the Tdap vaccine in the last 10 years you should obtain one as well. Have mammogram yearly, bone density every 2-3 years and colonoscop y every 5-10 years depending on findings and history. Engage in daily exercise of low impact aerobic exercise 45-60 minutes 4-5 times weekly. Avoid tobacco and illicit drugs as well as using moderation with alcohol intake less than 1-2 8 oz beverages daily. This lifestyle behavior pattern will lead to less health conditions and longer life span. If BMI greater than 25 weight watchers or dietary consult advised. Questions have been answered. Patient appears to understand instructio ns, but if you have any further questions call or respond to this email Pap/hpv sentSTD Screen declinedGe netic Screen discussedC olon Screen UTD PCPDexa Screen PCPRoutine Labs PCPMammo ordered Menopausal symptom 38439 002 N95.1 Tried to wean off last year but kept having hot flashes, irritabili ty return.We again discussed R/B's of continuing this HRT therapy.Sh e understand s the risks & opts to continue. Today we switched her HRT regimen to Estradiol 0.5mg/Prom etrium 200mg daily separately vs the combined activella (combined estradiol/ norethindr one-HRT) plus the prometrium 200mg she was told to take (previousl y thought the patient was taking estradiol only but was not the case).She understand s both must be taken if has an intact uterus.She has had no spotting since 2021.Discu ssed again considerin g weaning based on age. Screening mammography 24 421333 Z12.31 [id number] ERIK Sharma [facility] [address] [address] 08/12/2024 13:47:13 08/12/2024 15:16:59 Gynecologic examination 37792895 Z01.419 WWEpostmen opausalPap - updatedSTI screen - declinedMa mmogram - UTDColon cancer screening - UTDDexa - has scheduled, order givenRouti ne labs - UTD/PCPRTC in 1 yr or sooner if needed Do monthly self breast exams.It is advised to get annual flu shot in the fall and she could obtain at local pharmacy. If you haven't received the Tdap vaccine in the last 10 years you should obtain one as well.Have mammogram yearly, bone density every 2-3 years and stay up to date on colon cancer screening. Engage in regular exercise. Avoid tobacco and illicit drugs. This lifestyle behavior pattern will lead to less health conditions and longer life span. If BMI greater than 25 dietary consult advised.Qu estions have been answered. Screening for osteoporosis [id number] Z13.820 Hormone re placement therapy 103897649 Z79.890 Discussed HRT, reviewed with patient the importance of taking progestero ne if taking estrogen. Reviewed risk of unopposed estrogen.r ecommended pelvic u/s since she has been taking estrogen aloneshe would like to continue on HRTwill switch to transderma l estradiol with nightly oral prometrium r/b/a reviewed [id number] Smita Palomino [facility] [address] [address] 08/20/2024 16:25:24 08/20/2024 17:12:29 Endometrium thickened 220289869 R93.89 Health Concerns Section Related Observation LastModified by Organization Detai ls LastModified Time None Recorded Concern Status LastModified by Organization Details LastModified Time None Recorded Advance Directives Directive N: Payers Encounter Date Sequence Insurance Name Policy Number Policy [place] Covered Member ID [place] Member ID Guarantor Name 09/30/2022 1 [place] [id number] 1 Shanna Schumacher Deblock [id number] Shanna Deblock 10/14/2022 1 [place] [id number] 1 Shanna S Deblock [id number] Shanna Deblock 05/22/2023 1 [place] [id number] 1 Shanna Schumacher Deblock [id number] Shanna Deblock 08/12/2024 1 [employer] [id number] Shanna Timlock [id number] Shanna Timlock 08/20/2024 1 [employer] [id number] Shanna Deblock [id number] Shanna Hawthorne Notes Date Note Type Note Provider Name and Address Organization Details Recorded Time 3 text/html this patient is a 62-year-old female with a episode of postmenopausal bleeding. Endometrial biopsy was performed and found to be inadequate. We talked about options. During our discussion we revealed that she is on estrogen replacement therapy but is not taking any progesterone. Discussed the risk of this. This is like the the reason for her bleeding. It is more important to get the biopsy given this issue. We spent over 40 minutes pluz-ux-jaws. Made a decision to perform surgery. I explained hysteroscopy and D&C to her in great detail detail. I explained risks, benefits, and alternatives. We talked about endometrial cancer. We talked about postmenopausal bleeding. Talked about hormone replacement therapy and the risks. She will return for hysteroscopy D&C. This will be in the office. Dmitri Dumas MD [address], [place], [address], [facility] 09/30/2022 15:36:54 3 text/html 62-year-old female with postmenopausal bleeding who failed endometrial biopsy in the office with a Pipelle. She returns for office hysteroscopy D&C. Dmitri Dumas MD [address], [place], [address], [facility] 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 Post-MenopausalReporte d bypatient.Menopausal Symptoms:no menopausal symptoms; normal vaginal lubrication Vaginal Bleeding:history of menopause having occurred; no history of post menopausal bleeding Urinary Symptoms:no hematuria; no incontinence; no nocturia; no urinary frequency Vulva:no genital lesion; no vulvar atrophy Vagina:normal vaginal discharge; no vaginal atrophy Breast:no breast lump; no nipple discharge; no breast pain Sexual Complaints:no sexual complaints Psychological Symptoms:no depression; no anxiety Preventive Measures:encourage regular mammograms starting age 40; encourage self breast examination; encourage regular exercise; encourage no tobacco use; needs to schedule mammogram; history of recent colonoscopy Danika Carson BEAR- [address], [place], [address], [facility] 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 Post-MenopausalReporte d bypatient.Menopausal Symptoms:no menopausal symptoms; normal vaginal lubrication Vaginal Bleeding:history of menopause having occurred; no history of post menopausal bleeding Urinary Symptoms:no hematuria; no incontinence; no nocturia; no urinary frequency Vulva:no genital lesion; no vulvar atrophy Vagina:normal vaginal discharge; no vaginal atrophy Breast:no breast lump; no nipple discharge; no breast pain Sexual Complaints:no sexual complaints Psychological Symptoms:no depression; no anxiety Preventive Measures:encourage regular mammograms starting age 40; encourage self breast examination; encourage regular exercise; encourage no tobacco use; mammogram performed within the past yearNotes:63yo wwepostmenopausallast pap 05/2023 : nilm, HPV (-)mammogram UTDcolonoscopy UTDdexa - scheduled next month was on estradiol-norethindron e combination tablet for hot flashes. Last year switched to estradiol 0.5mg tablet and daily oral prometrium 200mg. She states she has only been taking the estradiol 0.5mg tablet daily alone and is not taking the prometrium.wants to continue on HRT, has tried to wean off in the past and hot flashes return ERIK Sharma [address], [place], [address], [facility] 08/12/2024 15:15:24 OBGyn Episode Ob Episode Information Episode Created Date Number of Fetuses Patient Bloodtype Patient rh Status Prepregnancy Weight lbs Domestic Partner Domestic Partner Phone Father Name Criminal Intelligence Analyst Status 05/12/20 20 1 CLOSED Fetus Data First Name Last Name Admitted to NICU Weight (g) Sex Living Outcome Pediatric Complications Fetus ID Race Codes Race Delivery Type [id number] Vaginal Delivery Elver Calculation Initial Elver Date Initial Exam Date Initial Exam Provider Initial Ultrasound Date Last Menstrual Period Date Ultra Sound Weeks Gestation 0 Eighteen To Twenty Week Elver Update Ultra Sound Date Fundal Height At Umbil Quickening Date Ultra Sound Latest Weeks Gestation Final Elver Confirmed By Final Elver Confirmed Date Final Elver Date Ultra Sound Latest Days Gestation 0 0 Menstrual History Last Menstrual Date Menses Monthly On Bcp Conception Prior Menses Frequency Hcg Plus Date Menarche Onset Age Delivery Information Delivery Date Delivery Type Labor Anesthesia Weeks Gestation Incision Type Labor Labor Length Hrs Delivered By Post Complications Tubal Sterilization Discharge Date Comments 2 Discharge Information Feeding Method Contraceptive Method Maternal HG B and HCT Levels Ob Episode Information Episode Created Date Number of Fetuses Patient Bloodtype Patient rh Status Prepregnancy Weight lbs Domestic Partner Domestic Partner Phone Father Name Criminal Intelligence Analyst Status 05/12/20 20 1 CLOSED Fetus Data First Name Last Name Admitted to NICU Weight (g) Sex Living Outcome Pediatric Complications Fetus ID Race Codes Race Delivery Type [id number] Vaginal Delivery Elver Calculation Initial Elver Date Initial Exam Date Initial Exam Provider Initial Ultrasound Date Last Menstrual Period Date Ultra Sound Weeks Gestation 0 Eighteen To Twenty Week Elver Update Ultra Sound Date Fundal Height At Umbil Quickening Date Ultra Sound Latest Weeks Gestation Final Elver Confirmed By Final Elver Confirmed Date Final Elver Date Ultra Sound Latest Days Gestation 0 0 Menstrual History Last Menstrual Date Menses Monthly On Bcp Conception Prior Menses Frequency Hcg Plus Date Menarche Onset Age Delivery Information Delivery Date Delivery Type Labor Anesthesia Weeks Gestation Incision Type Labor Labor Length Hrs Delivered By Post Complications Tubal Sterilization Discharge Date Comments 4 Discharge Information Feeding Method Contraceptive Method Maternal HG B and HCT Levels Ob Episode Information Episode Created Date Number of Fetuses Patient Bloodtype Patient rh Status Prepregnancy Weight lbs Domestic Partner Domestic Partner Phone Father Name Criminal Intelligence Analyst Status 05/12/20 20 1 CLOSED Fetus Data First Name Last Name Admitted to NICU Weight (g) Sex Living Outcome Pediatric Complications Fetus ID Race Codes Race Delivery Type 4295 Vaginal Delivery Elver Calculation Initial Elver Date Initial Exam Date Initial Exam Provider Initial Ultrasound Date Last Menstrual Period Date Ultra Sound Weeks Gestation 0 Eighteen To Twenty Week Elver Update Ultra Sound Date Fundal Height At Umbil Quickening Date Ultra Sound Latest Weeks Gestation Final Elver Confirmed By Final Elver Confirmed Date Final Elver Date Ultra Sound Latest Days Gestation 0 0 Menstrual History Last Menstrual Date Menses Monthly On Bcp Conception Prior Menses Frequency Hcg Plus Date Menarche Onset Age Delivery Information Delivery Date Delivery Type Labor Anesthesia Weeks Gestation Incision Type Labor Labor Length Hrs Delivered By Post Complications Tubal Sterilization Discharge Date Comments 8 Discharge Information Feeding Method Contraceptive Method Maternal HG B and HCT Levels Ob Episode Information Episode Created Date Number of Fetuses Patient Bloodtype Patient rh Status Prepregnancy Weight lbs Domestic Partner Domestic Partner Phone Father Name Criminal Intelligence Analyst Status 05/12/20 20 1 CLOSED Fetus Data First Name Last Name Admitted to NICU Weight (g) Sex Living Outcome Pediatric Complications Fetus ID Race Codes Race Delivery Type , Spontane ous 4298 Elver Calculation Initial Elver Date Initial Exam Date Initial Exam Provider Initial Ultrasound Date Last Menstrual Period Date Ultra Sound Weeks Gestation 0 Eighteen To Twenty Week Elver Update Ultra Sound Date Fundal Height At Umbil Quickening Date Ultra Sound Latest Weeks Gestation Final Elver Confirmed By Final Elver Confirmed Date Final Elver Date Ultra Sound Latest Days Gestation 0 0 Menstrual History Last Menstrual Date Menses Monthly On Bcp Conception Prior Menses Frequency Hcg Plus Date Menarche Onset Age Delivery Information Delivery Date Delivery Type Labor Anesthesia Weeks Gestation Incision Type Labor Labor Length Hrs Delivered By Post Complications Tubal Sterilization Discharge Date Comments 1 Discharge Information Feeding Method Contraceptive Method Maternal HG B and HCT Levels
--- OUTSIDE RECORDS SUMMARY | 2024-10-25 14:27 | XMS_ITS | Patient Health Summary ---
Author Organization [facility] Address [address] [place] [address] Care Team Providers Care Obstetrical Tech Name Role Phone Unavailable Primary Care Provider Unavailabl e Note from [facility] [place],non-owned Affiliates and Associated Physician Practices is amultiple site organization consisting of ambulatory clinics and hospital sitesin [place], [place], [place] and [place]. This disclosure is being madepursuant to the Care Everywhere program and may not contain all information available regarding this patient. Last updated 18.[facility] Social History Tobacco Use Types Packs/Day Years Used Date Smoking Tobacco: Never Assessed Sex and Gender Information Value Date Recorded Sex Assigned at Not on file Gender Identity Not on file Sexual Orientation Not on file Procedures * DERMATOPATHOLOGY(Performed 06/01/2024) * DERMATOPATHOLOGY(Performed 12/01/2023) * DERMATOPATHOLOGY(Performed 11/20/2023) * DERMATOPATHOLOGY(Performed 11/06/2023) * DERMATOPATHOLOGY(Performed 04/08/2023) Results * DERMATOPATHOLOGY (06/01/2024 2:21 PM CDT) Only the most recent of5 resultswithin the time period is included. Case Report Dermatopathology Report Case: [id number] Authorizing Provider: Phuong Adbi DO Collected: 06/01/2024 02:21 PM Ordering Location: [facility] - Received: 06/02/2024 12:12 PM DermPath Lab Pathologist: Liya Dockery MD Specimen: Skin, right earlobe 4 4:30 PM CDT DERMATOPATHOLOGY LABORATORY Final Diagnosis Specimen A. SKIN, right earlobe: BASAL CELL CARCINOMA, INFILTRATIVE PATTERN (C44.212) 4 4:30 PM CDT DERMATOPATHOLOGY LABORATORY Clinical History R/O BCC 4:30 PM CDT DERMATOPATHOLOGY LABORATORY Gross Description Specimen A: Received is one formalin filled container labeled with the patient's name and designated right earlobe. The specimen consists of a shave biopsy measuring 5x4x1 mm. Jar 0. 4:30 PM CDT DERMATOPATHOLOGY LABORATORY Microscopic Description Specimen A. SKIN, right earlobe: Within the dermis there are nodular aggregates of basaloid cells associated with fibromyxoid stroma and epithelial-stromal clefts. At the advancing margin of the neoplasm, there are smaller angulated nests that infiltrate the dermis. 4:30 PM CDT DERMATOPATHOLOGY LABORATORY Disclaimer An external and internal positive and negative controls are appropriate for the histochemical, immunohistochemical and immunofluorescence stain(s) in this case (if any), except where stated explicitly. The performance characteristics of the stain(s) cited in this report were developed and its performance characteristic determined by the Dermatopathology Laboratory at [facility], directed by Dr. Danie Dukes. These tests need not be, and therefore are not, approved by the [place] Food and Drug Administration. The tests are used for clinical purposes. Billing Codes Specimen Charges Stain Charges 77022 1 4:30 PM CDT DERMATOPATHOLOGY LABORATORY Embedded Images 4:30 PM CDT DERMATOPATHOLOGY LABORATORY Pathology/Cytolo gy TISSUE SPECIMEN FROM SKIN / Unknown 06/01/2024 2:21 PM CDT 06/02/2024 12:12 PM CDT Phuong Abdi DO LAB - PATHOLOGY/C YTOLOGY ORDERABLES DERMATOPATHOLOGY LABORATORY [facility] - Department of Dermatology [address], [address] [phone]
--- OUTSIDE RECORDS SUMMARY | 2024-10-25 14:27 | XMS_ITS | Referral Summary ---
Author Organization [facility] Address [address] [place] [address] Care Team Providers Care Gis Web Developer Name Role Phone Unavailable Primary Care Provider Unavailabl e Source Comments [facility],non-owned Affiliates and Associated Physician Practices is amultiple site organization consisting of ambulatory clinics and hospital sitesin [place], [place], [place] and [place]. This disclosure is being madepursuant to the Care Everywhere program and may not contain all information available regarding this patient. Last updated 18.[facility] [employer] Social History Tobacco Use Types Packs/Day Years Used Date Smoking Tobacco: Never Assessed Sex and Gender Information Value Date Recorded Sex Assigned at Not on file Gender Identity Not on file Sexual Orientation Not on file Plan of Treatment Not on file
--- OUTSIDE RECORDS SUMMARY | 2024-10-25 14:27 | XMS_ITS | Clinical Summary ---
Author Organization [facility] Address [address] [place] [id number] Care Team Providers Care Tariff Compiler Name Role Phone Unavailable Primary Care Provider Unavailabl e Social History Tobacco Use Types Packs/Day Years Used Date Smoking Tobacco: Never Assessed Comments Unknown Sex and Gender Information Value Date Recorded Sex Assigned at Not on file Legal Sex Female 5:19 PM CDT Gender Identity Not on file Sexual Orientation Not on file Plan of Treatment Health Maintenance Due Date Last Done Comments Colorectal Cancer Screening Colonoscopy (10 Years) 1958 Hepatitis C 1976 DTaP, Tdap and Td Vaccines ( 1 - Tdap) 1977 Mammogram Screening 1998 Zoster Vaccines (1 of 2) 2008 Dexa Scan (General) 2023 Pneumococcal Vaccine: 65+ Ye ars (1 of 1 - PCV) 2023 COVID-19 Vaccine ( - 2023-2 5 season) 2024 Influenza Adult (#1) 2024 RSV Immunization or 60+ Years (1 - 1-dose 75+ series) 2033 Meningococcal B Vaccine Aged Out No l onger eligible based on patient's age to complete this topic Meningococcal Vaccine Aged Out No marissa xenia eligible based on patient's age to complete this topic Pneumococcal Vaccine: Pediat rics (0 to 5 Years) and At-Risk Patients (6 to 64 Years) Aged Out No longer eligible b ased on patient's age to complete this topic RSV Immunizations Under 20 Months Aged Out No longer eligible based on patient's age to complete this topic
--- OUTSIDE RECORDS SUMMARY | 2024-10-25 14:27 | XMS_ITS | Clinical Summary ---
Author Organization [facility] [employer] Address [address] [facility] [place] [address] Care Team Providers Care Ground Nuclear Weapons Assembly Officer Name Role Phone Unavailable Primary Care Provider Unavailabl e Source Comments [facility],non-owned Affiliates and Associated Physician Practices is amultiple site organization consisting of ambulatory clinics and hospital sitesin [place], [place], [place] and [place]. This disclosure is being madepursuant to the Care Everywhere program and may not contain all information available regarding this patient. Last updated 18.[facility] Social History Tobacco Use Types Packs/Day Years Used Date Smoking Tobacco: Never Assessed Sex and Gender Information Value Date Recorded Sex Assigned at Not on file Gender Identity Not on file Sexual Orientation Not on file Plan of Treatment Health Maintenance Due Date Last Done Comments BONE DENSITY TESTING 1960 COLOGUARD (AGES 45-75) - COL ON CA SCREENING 1958 COLON MONITORING 1958 COLONOSCOPY - COLON CA SCREENING 1958 CT COLONOGRAPHY - COLON CA SCREENING 1958 Colorectal Cancer Screening 1958 FIT - COLON CA SCREENING 1958 FLEX SIG - COLON CA SCREENING 1958 LIPID TESTING 1958 MAMMOGRAM 1958 HEPATITIS C SCREENING 09/01/1976 DTAP/TDAP/TD VACCINES (1 - Tdap) 1977 PNEUMOCOCCAL VACCINE 50+ (1 of 1 - PCV) 2008 ZOSTER VACCINE (1 of 2) 2008 COVID-19 VACCINE ( - 2023-2 5 season) 2024 INFLUENZA VACCINE (#1) 2024 DEPRESSION SCREENING 09/08/2024 MEDICARE AWV CALENDAR YEAR 2024 Respiratory Syncytial Virus (RSV) Vaccine Pt: or over 60 yrs (1 - 1-dose 75+ series) 2033 HEPATITIS B VACCINE Aged Out No longe r eligible based on patient's age to complete this topic HIB VACCINE Aged Out No longer eligi ble based on patient's age to complete this topic HPV VACCINE Aged Out No longer eligi ble based on patient's age to complete this topic MENINGOCOCCAL (Group B) VACCINE Aged Out No longer eligible based on patient's age to complete this topic MENINGOCOCCAL VACCINE Aged Out No marissa xenia eligible based on patient's age to complete this topic
--- OUTSIDE RECORDS SUMMARY | 2024-10-25 14:27 | XMS_ITS | Clinical Summary ---
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 Gender Identity Not on file Sexual Orientation Not on file Plan of Treatment Health Maintenance Due Date Last Done Comments DEXA Bone Density 1960 Hepatitis C Virus (HCV) Screening 1958 Pap Smear 1979 Cervical Cancer Screening (CCS) 1988 HPV/Cotest 1988 Colonoscopy 2003 Colorectal Cancer Screening 2003 Cologuard 2008 Immunochemical Fecal Occult Blood 2008 Mammogram 2008 Pneumococcal Immunization (5 0+ years) (1 of 1 - PCV) 2008 Zoster Immunization (1 of 2) 2008 08/03/2018 Influenza Immunization (#1) 05/09/202405/09, 06/22/2019 SARS-COV-2 Immunization ( season) 2024 08/10/2021, 10/30/2020, 09/28/2020 Respiratory Syncytial Virus (RSV) Immunization (Adult) (1 - 1-dose 75+ series) 2033 DTaP/Tdap/Td Immunization Discontinued 04/30/2019 TdaP Immunization Completed 04/30/2019 Hepatitis B Immunization Aged Out No longer eligible based on patient's age to complete this topic Meningococcal Immunization (ACWY) Aged Out No longer eligible based on patient's age to complete this topic Rotavirus Immunization Aged Out No lo nger eligible based on patient's age to complete this topic
--- OUTSIDE RECORDS SUMMARY | 2024-10-25 14:28 | XMS_ITS | Encounter Summary ---
Author Organization [facility] Address [address] [place] [address] Care Team Providers Care Thread Puller Name Role Phone Unavailable Primary Care Provider Unavailabl e Encounter Details Date Type Department Care Team (Late st Contact Info) Description 12/01/2023 Lab Requisition [facility] - DermPath Lab [address] [facility] [address] [place] [address] Phuong Abdi DO [address] [facility] [address] [place] [address] Social History Tobacco Use Types Packs/Day Years Used Date Smoking Tobacco: Never Assessed Sex and Gender Information Value Date Recorded Sex Assigned at Not on file Gender Identity Not on file Sexual Orientation Not on file documented as of this encounter Plan of Treatment Not on file documented as of this encounter Procedures Procedure Name Priority Date/Time Associated Diagnosis Comments DERMATOPATHOLOGY Routine 12/01/2023 4:04 PM CDT documented in this encounter Results * DERMATOPATHOLOGY (12/01/2023 4:04 PM CDT) Case Report Dermatopathology Report Case: [id number] Authorizing Provider: Phuong Abdi DO Collected: 12/01/2023 04:04 PM Ordering Location: [facility] - Received: 12/02/2023 01:21 PM DermPath Lab Pathologist: Jeannie Alexander MD Specimen: Skin, right upper back 4 10:48 AM CDT DERMATOPATHOLOGY LABORATORY Final Diagnosis Specimen A. SKIN, right upper back: BASAL CELL CARCINOMA (C44.519) NOT PRESENT AT MARGIN DERMAL SCAR (L90.5) 4 10:48 AM CDT DERMATOPATHOLOGY LABORATORY Clinical History Bx Proven SCCIS. Check Margins 10:48 AM CDT DERMATOPATHOLOGY LABORATORY Gross Description Specimen A: Received is one formalin filled container labeled with the patient's name and designated right upper back. The specimen consists of a non-oriented ellipse of skin measuring 46v66r8 mm. The margin is inked green. The 12 o'clock and 6 o'clock tips are submitted in cassette 1. The remainder of the ellipse is serially sectioned and submitted in cassette 2 - 4. Jar 0. 10:48 AM CDT DERMATOPATHOLOGY LABORATORY Microscopic Description Specimen A. SKIN, right upper back: Within the dermis there are aggregates of basaloid cells that are highlighted by a BerEP4 stain with a high nuclear to cytoplasmic ratio and peripheral palisading. This lesion is not present at the margin of the specimen. There are fibroblasts and collagen bundles oriented parallel to the skin surface with elongated blood vessels, some of which are oriented perpendicular to the skin surface. 10:48 AM CDT DERMATOPATHOLOGY LABORATORY Disclaimer An external and internal positive and negative controls are appropriate for the histochemical, immunohistochemical and immunofluorescence stain(s) in this case (if any), except where stated explicitly. The performance characteristics of the stain(s) cited in this report were developed and its performance characteristic determined by the Dermatopathology Laboratory at [facility], directed by Dr. Danie Dukes. These tests need not be, and therefore are not, approved by the [place] Food and Drug Administration. The tests are used for clinical purposes. Billing Codes Specimen Charges Stain Charges 54001 1 84192 1 10:48 AM CDT DERMATOPATHOLOGY LABORATORY Embedded Images 10:48 AM CDT DERMATOPATHOLOGY LABORATORY Pathology/Cytolo gy TISSUE SPECIMEN FROM SKIN / Unknown 12/01/2023 4:04 PM CDT 12/02/2023 1:21 PM CDT Phuong Abdi DO LAB - PATHOLOGY/C YTOLOGY ORDERABLES DERMATOPATHOLOGY LABORATORY [facility] - Department of Dermatology [address] [phone] documented in this encounter Visit Diagnoses Not on filedocumented in this encounter
--- OUTSIDE RECORDS SUMMARY | 2024-10-25 14:28 | XMS_ITS | Encounter Summary ---
Author Organization [facility] Address [address] [place] [address] Care Team Providers Care Set Staff Fitter Name Role Phone Unavailable Primary Care Provider Unavailabl e Encounter Details Date Type Department Care Team (Late st Contact Info) Description 11/06/2023 Lab Requisition [facility] - DermPath Lab [address] [facility] [place] [address] Phuong Abdi DO [address] [facility] [address] [place] [address] Social History Tobacco Use Types Packs/Day Years Used Date Smoking Tobacco: Never Assessed Sex and Gender Information Value Date Recorded Sex Assigned at Not on file Gender Identity Not on file Sexual Orientation Not on file documented as of this encounter Plan of Treatment Not on file documented as of this encounter Procedures Procedure Name Priority Date/Time Associated Diagnosis Comments DERMATOPATHOLOGY Routine 11/06/2023 11:1 7 AM SERVICE COORDINATOR [facility] documented in this encounter Results * DERMATOPATHOLOGY (11/06/2023 11:17 AM SERVICE COORDINATOR [facility]) Case Report Dermatopathology Report Case: [id number] Authorizing Provider: Phuong Abdi DO Collected: 11/06/2023 11:17 AM Ordering Location: [facility] - Received: 11/10/2023 06:48 AM DermPath Lab Pathologist: Aziza Dukes MD Specimens: A) - Skin, right upper back B) - Skin, right upper arm 2:36 PM SERVICE COORDIN[facility] DERMATOPATHOLOGY LABORATORY Final Diagnosis Specimen A. SKIN, right upper back: BASAL CELL CARCINOMA, SUPERFICIAL MULTIFOCAL (C44.519) Specimen B. 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 The specimen consists of a shave biopsy measuring 6x5x1 mm. Jar 0. Specimen B: Received is one formalin filled container labeled with the patient's name and designated right upper arm. The specimen consists of a shave biopsy measuring 9x7x1 mm. Jar 0. 2:36 PM [facility] DERMATOPATHOLOGY LABORATORY Microscopic Description Specimen A. SKIN, right upper back: Attached to the undersurface of the epidermis, there are small aggregates of basaloid cells with a high nuclear to cytoplasmic ratio and peripheral palisading. Specimen B. SKIN, right upper arm: The epidermis shows parakeratosis, full thickness disorderly maturation of keratinocytes, mitoses at different levels, and dyskeratotic cells. 2:36 PM [facility] DERMATOPATHOLOGY LABORATORY Disclaimer An external and internal positive and negative controls are appropriate for the histochemical, immunohistochemical and immunofluorescence stain(s) in this case (if any), except where stated explicitly. The performance characteristics of the stain(s) cited in this report were developed and its performance characteristic determined by the Dermatopathology Laboratory at [facility], directed by Dr. Danie Dukes. These tests need not be, and therefore are not, approved by the [place] Food and Drug Administration. The tests are used for clinical purposes. Billing Codes Specimen Charges Stain Charges 14141 74803 1 1 4 2:36 PM [facility] DERMATOPATHOLOGY LABORATORY Embedded Images 2:36 PM [facility] DERMATOPATHOLOGY LABORATORY Pathology/Cytology TISSUE SPECIMEN FROM SKIN / Unknown 11/06/2023 11:17 AM SERVICE COORDINATOR [facility] 11/10/2023 6:48 AM [facility]ICE [facility] Miscellaneous samples (specimen) TISSUE SPECIMEN FROM SKIN / Unknown 11/06/2023 11:17 AM SERVICE COORDINATOR [facility] 11/10/2023 6:48 AM [facility]ICE [facility] Phuong Abdi DO LAB - PATHOLOGY/C YTOLOGY ORDERABLES DERMATOPATHOLOGY LABORATORY [facility] - Department of Dermatology [address] [phone] documented in this encounter Visit Diagnoses Not on filedocumented in this encounter
--- OUTSIDE RECORDS SUMMARY | 2024-10-25 14:28 | XMS_ITS | Encounter Summary ---
Author Organization [facility] Address [address] [place] [address] Care Team Providers Care Appellate Court Judge Name Role Phone Unavailable Primary Care Provider Unavailabl e Encounter Details Date Type Department Care Team (Late st Contact Info) Description 04/08/2023 Lab Requisition [facility] - DermPath Lab [address] [facility], [place] [address] Phuong Abdi DO [address] [facility] [address] [place] [address] Social History Tobacco Use Types Packs/Day Years Used Date Smoking Tobacco: Never Assessed Sex and Gender Information Value Date Recorded Sex Assigned at Not on file Gender Identity Not on file Sexual Orientation Not on file documented as of this encounter Plan of Treatment Not on file documented as of this encounter Procedures Procedure Name Priority Date/Time Associated Diagnosis Comments DERMATOPATHOLOGY Routine 04/08/2023 9:24 AM CDT documented in this encounter Results * DERMATOPATHOLOGY (04/08/2023 9:24 AM CDT) Case Report Dermatopathology Report Case: [id number] Authorizing Provider: Phuong Abdi DO Collected: 04/08/2023 09:24 AM Ordering Location: [facility] DermPath Lab Received: 04/08/2023 03:25 PM Pathologist: Aziza Dukes MD Specimen: Skin, above left eyebrow 5:23 PM CDT DERMATOPATHOLOGY LABORATORY Final Diagnosis Specimen A. SKIN, above left eyebrow: SQUAMOUS CELL CARCINOMA IN SITU (LUNA'S DISEASE) (D04.39) 3 5:23 PM CDT DERMATOPATHOLOGY LABORATORY Clinical History R/O NMSC 3 5:23 PM CDT DERMATOPATHOLOGY LABORATORY Gross Description Specimen A: Received is one formalin filled container labeled with the patient's name and designated above left eyebrow. The specimen consists of a shave biopsy measuring 6x5x1 mm. Jar 0. 3 5:23 PM T DERMATOPATHOLOGY LABORATORY Microscopic Description Specimen A. SKIN, above left eyebrow: The epidermis shows parakeratosis, full thickness disorderly maturation of keratinocytes, mitoses at different levels, and dyskeratotic cells. 3 5:23 PM T DERMATOPATHOLOGY LABORATORY Disclaimer An external and internal positive and negative controls are appropriate for the histochemical, immunohistochemical and immunofluorescence stain(s) in this case (if any), except where stated explicitly. The performance characteristics of the stain(s) cited in this report were developed and its performance characteristic determined by the Dermatopathology Laboratory at [facility], directed by Dr. Danie Dukes. These tests need not be, and therefore are not, approved by the [place] Food and Drug Administration. The tests are used for clinical purposes. Billing Codes Specimen Charges Stain Charges 23154 1 3 5:23 PM CDT DERMATOPATHOLOGY LABORATORY Embedded Images 3 5:23 PM CDT DERMATOPATHOLOGY LABORATORY Pathology/Cytolo gy TISSUE SPECIMEN FROM SKIN / Unknown 04/08/2023 9:24 AM CDT 04/08/2023 3:25 PM CDT Phuong Abdi DO LAB - PATHOLOGY/C YTOLOGY ORDERABLES DERMATOPATHOLOGY LABORATORY [facility] - Department of Dermatology [facility] [address] [place] [address], [address] [phone] documented in this encounter Visit Diagnoses Not on filedocumented in this encounter
--- OUTSIDE RECORDS SUMMARY | 2024-10-25 14:28 | XMS_ITS | Data Portability ---
Author Organization [facility] [employer], Main Office Address [address] [place] [address] Assessment No assessment recorded. Plan of Treatment Reminders Order Date Submit Date Provider Last Modified By Organization Details Last Modified Time Details Appointments None recorde d. Lab lipid panel, serum 023 05/20/20 23 [facility] (Lab), [address] [place], [address], 3 08:25:04 Referral None recorde d. Procedures None recorde d. Surgeries None recorde d. Imaging None recorde d. Medication Orders None recorde d. Patient TargetsNo targets recorded. Patient Instructions Encounter Date Encounter Id Patient Instructions Last Modified By Organization Details Last Modified Time 05/20/2023 [id number] Fu in 1 year for wellness. [email or web address] Not available 05/20/2023 17:36:12 Reason for Referral None Reported. Results Created Date Observation Date Name Description Value Unit Range Abnormal Flag Note LastModifiedBy Organization Detail LastModifiedTime 08/23/20 22 08/26/2022 HEMOG LOBIN A1C hemoglobin A1C 5.6 %_of_ total _HGB <5.7 normal For the purpo se of screjennifer garveyg for the prese nce of diabe drew: <5.7% Consi stent with the absen ce of diabe drew 5.7-6 .4% Consi stent with incre ased risk for diabe drew (pred iabet es) > or =6.5% Consi stent with diabe drew This assay resul t is consi stent with a decre ased risk of diabe drew. Curre ntly, no conse nsus exist s regar ding use of hemog lobin A1c for diagn osis of diabe drew in child janna. Accor ding to Ameri can Diabe drew Assoc iatio n (ADA) guide lines , hemog lobin A1c <7.0% repre sents optim al contr ol in non-p regna nt diabe tic patie nts. Diffe rent kesha cs may apply to speci fic patie nt popul ation s. [facility] ards of Medic al Care in Diabe drew(A DA). Not Available [address] [address] [place], [address], 08/26/2022 13:29:10 08/23/20 22 08/26/2022 T4, FREE T4, free 1.1 NG/dL 0.8-1. 8 normal Not Available [address] [place], [address], 08/26/2022 13:29:09 08/23/20 22 08/26/2022 TSH W/REF FAHEEM TO FT4 TSH w/reflex to FT4 6.05 mIU/L 0.40-4 .50 high Not Available [address], [address], 08/26/2022 13:29:09 08/23/20 22 08/26/2022 CBC (INCL UDES DIFF/ PLT) white blood cell count 6.1 thous and/u L 3.8-10 .8 normal Not Available [address], [address], 08/26/2022 13:29:08 08/23/20 22 08/26/2022 CBC (INCL UDES DIFF/ PLT) red blood cell count 4.37 guillermo on/uL 3.80-5 .10 normal Not Available [address], [address], 08/26/2022 13:29:08 08/23/20 22 08/26/2022 CBC (INCL UDES DIFF/ PLT) hemoglobin 12.1 g/dL 11.7-1 5.5 normal Not Available [address], [address], 08/26/2022 13:29:08 08/23/20 22 08/26/2022 CBC (INCL UDES DIFF/ PLT) hematocrit 36.1 % 35.0-4 5.0 normal Not Available [address], [address], 08/26/2022 13:29:08 08/23/20 22 08/26/2022 CBC (INCL UDES DIFF/ PLT) MCV 82.6 fL 80.0-1 00.0 normal Not Available [address], [address], 08/26/2022 13:29:08 08/23/20 22 08/26/2022 CBC (INCL UDES DIFF/ PLT) MCH 27.7 pg 27.0-3 3.0 normal Not Available [address], [address], 08/26/2022 13:29:08 08/23/20 22 08/26/2022 CBC (INCL UDES DIFF/ PLT) MCHC 33.5 g/dL 32.0-3 6.0 normal Not Available [address], [address], 08/26/2022 13:29:08 08/23/20 22 08/26/2022 CBC (INCL UDES DIFF/ PLT) RDW 15.1 % 11.0-1 5.0 high Not Available [address], [address], 08/26/2022 13:29:08 08/23/20 22 08/26/2022 CBC (INCL UDES DIFF/ PLT) platelet count 397 thous and/u L 140-40 0 normal Not Available [address], [address], 08/26/2022 13:29:08 08/23/20 22 08/26/2022 CBC (INCL UDES DIFF/ PLT) MPV 9.7 fL 7.5-12 .5 normal Not Available [address], [address], 08/26/2022 13:29:08 08/23/20 22 08/26/2022 CBC (INCL UDES DIFF/ PLT) absolute neutrophils 3190 cells /uL 1500-7 800 normal Not Available [address], [address], 08/26/2022 13:29:08 08/23/20 22 08/26/2022 CBC (INCL UDES DIFF/ PLT) absolute lymphocytes 2105 cells /uL 850-39 00 normal Not Available [address], [address], 08/26/2022 13:29:08 08/23/20 22 08/26/2022 CBC (INCL UDES DIFF/ PLT) absolute monocytes 512 cells /uL 200-95 0 normal Not Available [address], [address], 08/26/2022 13:29:08 08/23/20 22 08/26/2022 CBC (INCL UDES DIFF/ PLT) absolute eosinophils 201 cells /uL 15-500 normal Not Available [address], [address], 08/26/2022 13:29:08 08/23/20 22 08/26/2022 CBC (INCL UDES DIFF/ PLT) absolute basophils 92 cells /uL 0-200 normal Not Available [address], [address], 08/26/2022 13:29:08 08/23/20 22 08/26/2022 CBC (INCL UDES DIFF/ PLT) neutrophils 52.3 % normal Not Available [address] [place], [address], 08/26/2022 13:29:08 08/23/20 22 08/26/2022 CBC (INCL UDES DIFF/ PLT) lymphocytes 34.5 % normal Not Available [address], [address], 08/26/2022 13:29:08 08/23/20 22 08/26/2022 CBC (INCL UDES DIFF/ PLT) monocytes 8.4 % normal Not Available [address], [address], 08/26/2022 13:29:08 08/23/20 22 08/26/2022 CBC (INCL UDES DIFF/ PLT) eosinophils 3.3 % normal Not Available [address], [address], 08/26/2022 13:29:08 08/23/20 22 08/26/2022 CBC (INCL UDES DIFF/ PLT) basophils 1.5 % normal Not Available [address], [address], 08/26/2022 13:29:08 08/23/20 22 08/26/2022 COMPR EHENS PAULO METAB OLIC PANEL glucose 91 mg/dL 65-99 normal Fasti ng refer ence inter thelma Not Available [address], [address], 08/26/2022 13:29:08 08/23/20 22 08/26/2022 COMPR EHENS PAULO METAB OLIC PANEL urea nitrogen (BUN) 18 mg/dL 7-25 normal Not Available [address], [address], 08/26/2022 13:29:08 08/23/20 22 08/26/2022 COMPR EHENS PAULO METAB OLIC PANEL creatinine 0.84 mg/dL 0.50-1 .05 normal Not Available [address], [address], 08/26/2022 13:29:08 08/23/20 22 08/26/2022 COMPR EHENS PAULO METAB OLIC PANEL eGFR 78 mL/mi n/1.7 3m2 > or = 60 normal The eGFR is based on the CKD-E PI 2020 equat ion. To calcu late the new eGFR from a previ ous Creat inine or Cysta tin C resul t, go to https ://ralph w.kid seth.o carlos/pr ofess ional s/ kdoqi /gfr% 5Fcal culat or Not Available [address], [address], 08/26/2022 13:29:08 08/23/20 22 08/26/2022 COMPR EHENS PAULO METAB OLIC PANEL BUN/creatini ne ratio not applic able (calc ) 6-22 Not Available [address], [address], 08/26/2022 13:29:08 08/23/20 22 08/26/2022 COMPR EHENS PAULO METAB OLIC PANEL sodium 138 mmol/ L 135-14 6 normal Not Available [address], [address], 08/26/2022 13:29:08 08/23/20 22 08/26/2022 COMPR EHENS PAULO METAB OLIC PANEL potassium 3.7 mmol/ L 3.5-5. 3 normal Not Available [address], [address], 08/26/2022 13:29:08 08/23/20 22 08/26/2022 COMPR EHENS PAULO METAB OLIC PANEL chloride 102 mmol/ L 98-110 normal Not Available [address], [address], 08/26/2022 13:29:08 08/23/20 22 08/26/2022 COMPR EHENS PAULO METAB OLIC PANEL carbon dioxide 30 mmol/ L 20-32 normal Not Available [address], [address], 08/26/2022 13:29:08 08/23/20 22 08/26/2022 COMPR EHENS PAULO METAB OLIC PANEL calcium 9.5 mg/dL 8.6-10 .4 normal Not Available [address], [address], 08/26/2022 13:29:08 08/23/20 22 08/26/2022 COMPR EHENS PAULO METAB OLIC PANEL protein, total 6.9 g/dL 6.1-8. 1 normal Not Available [address], [address], 08/26/2022 13:29:08 08/23/20 22 08/26/2022 COMPR EHENS PAULO METAB OLIC PANEL albumin 4.2 g/dL 3.6-5. 1 normal Not Available [address], [address], 08/26/2022 13:29:08 08/23/20 22 08/26/2022 COMPR EHENS PAULO METAB OLIC PANEL globulin 2.7 g/dL_ (calc ) 1.9-3. 7 normal Not Available [address], [address], 08/26/2022 13:29:08 08/23/20 22 08/26/2022 COMPR EHENS PAULO METAB OLIC PANEL albumin/glob ulin ratio 1.6 (calc ) 1.0-2. 5 normal Not Available [address], [address], 08/26/2022 13:29:08 08/23/20 22 08/26/2022 COMPR EHENS PAULO METAB OLIC PANEL bilirubin, total 0.4 mg/dL 0.2-1. 2 normal Not Available [address], [address], 08/26/2022 13:29:08 08/23/20 22 08/26/2022 COMPR EHENS PAULO METAB OLIC PANEL alkaline phosphatase 58 U/L 37-153 normal Not Available [address], [address], 08/26/2022 13:29:08 08/23/20 22 08/26/2022 COMPR EHENS PAULO METAB OLIC PANEL AST 19 U/L 10-35 normal Not Available [address], [address], 08/26/2022 13:29:08 08/23/20 22 08/26/2022 COMPR EHENS PAULO METAB OLIC PANEL ALT 16 U/L 6-29 normal Not Available [address], [address], 08/26/2022 13:29:08 08/23/20 22 08/26/2022 LIPID PANEL , STAND HAKAN cholesterol, total 228 mg/dL <200 high Not Available [address], [address], 08/26/2022 13:29:07 08/23/20 22 08/26/2022 LIPID PANEL , STAND HAKAN HDL cholesterol 54 mg/dL > or = 50 normal Not Available [address], [address], 08/26/2022 13:29:07 08/23/20 22 08/26/2022 LIPID PANEL , STAND HAKAN triglyceride s 198 mg/dL <150 high Not Available [address], [address], 08/26/2022 13:29:07 08/23/20 22 08/26/2022 LIPID PANEL , STAND HAKAN LDL-choleste rol 140 mg/dL _(briseida c) high Refer ence range : <100 Lian able range <100 mg/dL for prima ry preve ntion ; <70 mg/dL for patie nts with CHD or diabe tic patie nts with > or = 2 CHD risk facto rs. LDL-C is now calcu lated using the Dayana n-Hop kins calcu damienel n, which is a valid ated novel metho d provi ding nate r accur acy than the Fried jessica equat ion in the estim ation of LDL-C . Dayana cohen SS et al. JUJU. 2013; 310(1 9): 2061- 2068 (http ://ed ucati on.Qu icix. com/f aq/FA Q164) Not Available [facility] [address] [address] [place], [address], 08/26/2022 13:29:07 08/23/20 22 08/26/2022 LIPID PANEL , STAND HAKAN chol/HDLC ratio 4.2 (calc ) <5.0 normal Not Available [facility] [address] [address] [place], [address], 08/26/2022 13:29:07 08/23/20 22 08/26/2022 LIPID PANEL , STAND HAKAN non HDL cholesterol 174 mg/dL _(briseida c) <130 high For patie nts with diabe drew plus 1 major ASCVD risk facto r, treat ing to a non-H DL-C goal of <100 mg/dL (LDL- C of <70 mg/dL ) is consi dered a zee moon c optio n. Not Available [facility] [address] [address] [place], [address], 08/26/2022 13:29:07 06/18/20 23 06/19/2023 LIPID PANEL , STAND HAKAN cholesterol, total 172 mg/dL <200 normal Not Available [facility] [address] [address] [place], [address], 06/19/2023 02:40:28 06/18/20 23 06/19/2023 LIPID PANEL , STAND HAKAN HDL cholesterol 62 mg/dL > or = 50 normal Not Available [facility] [address] [place] [address], [address], 06/19/2023 02:40:28 06/18/20 23 06/19/2023 LIPID PANEL , STAND HAKAN triglyceride s 144 mg/dL <150 normal Not Available [address], [address], 06/19/2023 02:40:28 06/18/20 23 06/19/2023 LIPID PANEL , STAND HAKAN LDL-choleste rol 86 mg/dL _(briseida c) normal Refer ence range : <100 Lian able range <100 mg/dL for prima ry preve ntion ; <70 mg/dL for patie nts with CHD or diabe tic patie nts with > or = 2 CHD risk facto rs. LDL-C is now calcu lated using the Dayana cohen-Hop kins calcu martin n, which is a valid ated novel metho d provi ding nate r accur acy than the Fried jessica equat ion in the estim ation of LDL-C . Dayana cohen SS et al. JUJU. 2013; 310(1 9): 2061- 2068 (http ://ed ucati on.Leidy juarezStudio SBV. com/f aq/FA Q164) Not Available [address], [address], 06/19/2023 02:40:28 06/18/20 23 06/19/2023 LIPID PANEL , STAND HAKAN chol/HDLC ratio 2.8 (calc ) <5.0 normal Not Available [facility] [address] [place] [address], [address], 06/19/2023 02:40:28 06/18/20 23 06/19/2023 LIPID PANEL , STAND HAKAN non HDL cholesterol 110 mg/dL _(briseida c) <130 normal For patie nts with diabe drew plus 1 major ASCVD risk facto r, treat ing to a non-H DL-C goal of <100 mg/dL (LDL- C of <70 mg/dL ) is celestina jane n. Not Available [address] [address] [place], [address], 06/19/2023 02:40:28 01/12/20 24 01/13/2024 LIPID PANEL , STAND HAKAN cholesterol, total 142 mg/dL <200 normal Not Available [address] [address] [place], [address], 01/13/2024 02:56:53 01/12/2001/13/2024 LIPID PANEL , STAND HAKAN HDL cholesterol 60 mg/dL > or = 50 normal Not Available [address] [address] [place], [address], 01/13/2024 02:56:53 01/12/20 24 01/13/2024 LIPID PANEL , STAND HAKAN triglyceride s 107 mg/dL <150 normal Not Available [facility] [address] [address] [place], [address], 01/13/2024 02:56:53 01/12/2001/13/2024 LIPID PANEL , STAND HAKAN LDL-choleste rol 63 mg/dL _(briseida c) normal Refer ence range : <100 Lian able range <100 mg/dL for prima ry preve ntion ; <70 mg/dL for patie nts with CHD or diabe tic patie nts with > or = 2 CHD risk facto rs. LDL-C is now calcu lated using the Dayana n-Hop kins maximusu martin n, which is a valid ated novel akiko salgado than the Fried jessica equat ion in the estim ation of LDL-C . Dayana cohen SS et al. JUJU. 2013; 310(1 9): 2061- 2068 (http ://ed ucati on.Qu estDi TwitJumps. com/f aq/FA Q164) Not Available [facility] [address] [address], [place], [address], 01/13/2024 02:56:53 01/12/20 24 01/13/2024 LIPID PANEL , STAND HAKAN chol/HDLC ratio 2.4 (calc ) <5.0 normal Not Available [facility] [address], [place], [address], 01/13/2024 02:56:53 01/12/20 24 01/13/2024 LIPID PANEL , STAND HAKAN non HDL cholesterol 82 mg/dL _(briseida c) <130 normal For patie nts with diabe drew plus 1 major ASCVD risk facto r, treat ing to a non-H DL-C goal of <100 mg/dL (LDL- C of <70 mg/dL ) is consi siomara hernandez thera peuti c optio n. Not Available [facility] [address], [place], [address], 01/13/2024 02:56:53 06/28/20 22 06/28/2022 MAMMO , scree jori, bilat eral No observ ation record ed. [id number] [facility] [address], [place], [address], 11/06/2022 07:39:39 07/11/20 23 07/11/2023 MAMMO , scree jori, bilat eral No observ ation record ed. [facility] [address], [place], [address], 07/16/2023 12:40:51 Result Notes None recorded. Problems Name Problem SNOMED Code Status Onset Date Resolution Date Notes Provider Name and Address Organization Details Recorded Time Herpes labialis 8385222 Active Not Available [facility] 3 07:31:39 Shoulder joint pain 714516581 Active Not Available [facility] 3 07:31:39 Recurrent herpes simplex 84867092 Active Not Available [facility] 3 07:31:39 Vertigo 338327557 Active 2021 Not Available [facility] 3 07:31:40 Onychomycosis 573068352 Active 2019 Not Available [facility] 3 07:31:40 Impetigo 31422926 Active Not Available [facility] 3 07:31:40 Upper respiratory infection 69794401 Active Not Available [facility] 3 07:31:40 Hyperlipidemi a 88951510 Active 2019 Not Available [facility] 3 07:31:40 Disorder of bursa of shoulder region 50577257 Active Not Available [facility] 3 07:31:40 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 Procedures Surgical History Date Name Laterality Status Provider Name and Address Organization Details Recorded Time 07/11/20 23 Most Recent Mammogram completed Vivian Gomez NP [address] [place], [place] [address]jennifer [facility] [address], [place], [address], [facility] 07/15/2023 18:21:56 05/23/20 16 colonoscopy completed Not Available [facility] 11/06/2022 07:26:50 09/08/19 12 Colonoscopy completed Not Available [facility] 11/06/2022 07:26:50 09/08/19 08 Cholecystectomy completed Not Available [facility] 11/06/2022 07:26:50 09/08/19 07 Colonoscopy completed Not Available [facility] 11/06/2022 07:26:50 09/08/19 02 Colonoscopy completed Not Available [facility] 11/06/2022 07:26:50 Imaging Results Imaging Date Name Status LastModified by Organiz ation Details LastModified Time 06/28/2022 MAMMO, screening, bilateral completed [id number] [address] [place] [address] Imaging [address], [place], [address], 11/06/2022 07:39:39 07/11/2023 MAMMO, screening, bilateral completed [facility] [address], [place], [address], 07/16/2023 12:40:51 Procedure Notes None recorded. Medical Equipment None Reported. Allergies No known drug allergies Medications Name Sig Start Date Stop Date Status Note LastModified by Organization Details LastModified Time amoxicillin 500 mg capsule active Not Available Not Available Not Available prednisone 10 mg tablet 04/29 completed Not Available Not Available Not Available azithromyci n 250 mg tablet TK 2 TS PO ON DAY 1, THEN TK 1 T PO D FOR 4 DAYS 05/15 completed Not Available Not Available Not Available ibuprofen 800 mg tablet TAKE 1 TABLET BY MOUTH 2 HOURS BEFORE THE PROCEDURE 05/20 completed Not Available Not Available Not Available fluconazole 150 mg tablet TAKE 1 TABLET BY MOUTH TODAY AND ANOTHER TABLET IN 72 HOURS 12/04 completed Not Available Not Available Not Available valacyclovi r 1 gram tablet TAKE 2 TABLETS BY MOUTH EVERY 12 HOURS FOR 1 DAY NEEDED active Not Available Not Available No t Available ondansetron HCl 8 mg tablet TAKE 1 TABLET BY MOUTH 2 HOURS BEFORE THE PROCEDURE DIRECTED 05/20 completed Not Available Not Available Not Available phenazopyri dine 200 mg tablet Take 1 tablet every 8 hours by oral route as needed for 3 days. active Not Available Not Available No t Available Zyrtec 10 mg tablet Take 1 tablet every day by oral route. 04/22 completed Not Available Not Available Not Available estradiol-n orethindron e acet 1 mg-0.5 mg tablet TAKE 1 TABLET BY MOUTH DAILY active Not Available Not Available No t Available sulfamethox azole 800 mg-trimetho prim 160 mg tablet TAKE 1 TABLET BY MOUTH EVERY 12 HOURS 05/20 completed Not Available Not Available Not Available hydrocodone 10 mg-acetamin ophen 325 mg tablet TAKE 1 TABLET BY MOUTH 2 HOURS BEFORE PROCEDURE 05/20 completed Not Available Not Available Not Available trifluridin e 1 % eye drops 04/29 completed Not Available Not Available Not Available terbinafine HCl 250 mg tablet Take 1 tablet every day by oral route. active Not Available Not Available No t Available alprazolam 0.5 mg tablet TAKE 1 TABLET BY MOUTH 2 HOURS BEFORE THE PROCEDURE 05/20 completed Not Available Not Available Not Available meclizine 25 mg tablet Take 1 tablet 3 times a day by oral route as needed. 05/20 completed Not Available Not Available Not Available Bleph-10 10 % eye drops INSTILL 1 DROP INTO AFFECTED EYE(S) BY OPHTHALMI C ROUTE EVERY 2-3 HOURS DURING THE DAY AND LESS FREQUENTL Y AT NIGHT for 5 days. 05/20 completed Not Available Not Available Not Available neomycin-po lymyxin-dex ameth 3.5 mg/mL-10,00 0 unit/mL-0.1 % eye drops SHAKE LIQUID AND INSTILL 1 DROP IN LEFT EYE FOUR TIMES DAILY 05/04 completed Not Available Not Available Not Available progesteron e micronized 200 mg capsule TAKE 1 CAPSULE BY MOUTH EVERY DAY active Not Available Not Available No t Available diclofenac sodium 75 mg tablet,ashanti yed release 04/29 completed Not Available Not Available Not Available mupirocin 2 % topical ointment active Not Available Not Available Not Available estradiol 0.5 mg tablet TAKE 1 TABLET BY MOUTH EVERY DAY DIRECTED active Not Available Not Available No t Available methylpredn isolone 4 mg tablets in a dose pack FOLLOW PACKAGE DIRECTION S 05/15 completed Not Available Not Available Not Available dicloxacill in 250 mg capsule active Not Available Not Available Not Available progesteron e micronized 100 mg capsule TAKE 2 CAPSULES BY MOUTH EVERY DAY FOR 12 DAYS active Not Available Not Available No t Available rosuvastati n 5 mg tablet TAKE 1 TABLET BY MOUTH EVERY DAY 2022 active Not Available Not Available Not Avai lable nitrofurant oin monohydrate /macrocryst als 100 mg capsule Take 1 capsule every 12 hours by oral route for 7 days. 05/03 completed Not Available Not Available Not Available estradiol-n orethindron e acet 0.5 mg-0.1 mg tablet TAKE 1 TABLET BY MOUTH EVERY DAY active Not Available Not Available No t Available Picato 0.015 % topical gel 05/04 completed Not Available Not Available Not Available One-A-Day Women's 50 Plus 1 po qd 04/22 completed Not Available Not Available Not Available Fluzone Quad 60 mcg (15 mcg x 4)/0.5 mL IM suspension 04/17 completed Not Available Not Available Not Available Fluzone Quad 60 mcg (15 mcg x 4)/0.5 mL IM suspension 07/17 completed Not Available Not Available Not Available Shingrix (PF) 50 mcg/0.5 mL intramuscul ar suspension, kit 05/03 completed Not Available Not Available Not Available Afluria Quad 60 mcg (15 mcg x 4)/0.5 mL IM suspension 05/03 completed Not Available Not Available Not Available Fluzone Quad 60 mcg (15 mcg x 4)/0.5 mL intramuscul ar susp. 05/03 completed Not Available Not Available Not Available Afluria Qd (36 mos up)(PF)60 mcg (15 mcg x4)/0.5 mL IM syringe ADM 0.5ML IM UTD active Not Available Not Available No t Available Vitals Date Recorded Body mass index (BMI) Body mass index (BMI) Body height Body height Oxygen saturation Oxygen saturation in Arterial blood by Pulse oximetry Oxygen saturation Oxygen saturation in Arterial blood by Pulse oximetry Heart rate Heart rate Respiratory rate Body temperature Body temperature Body weight Body weight Systolic blood pressure Diastolic blood pressure Systolic blood pressure Diastolic blood pressure Provider Name and Address Organization Details Last Updated DateTime 3 27.2 kg/m2 26.5 kg/m2 167.64 cm 167.64 cm 97 % 97 % 99 % 99 % 82 /min 72 /min 16 /min 97 [degF] 97.7 [degF] 08259.9 7 g 92869.1 5 g 122 mm[Hg] 84 mm[Hg] 124 mm[Hg] 82 mm[Hg] Not Available [facility] 3 07:27:56 Date Recorded Body weight Body mass index (BMI) Body height Body temperature Heart rate Respiratory rate Oxygen saturation Oxygen saturation in Arterial blood by Pulse oximetry Pain severity - 0-10 verbal numeric rating [Score] - Reported Systolic blood pressure Diastolic blood pressure Provider Name and Address Organization Details Last Updated DateTime 3 73756.6 9 g 25.6 kg/m2 167.64 cm 96.9 [degF] 72 /min 20 /min 97 % 97 % 0 118 mm[Hg] 70 mm[Hg] Vivian Suresh RN [place] - [facility] 16:59:23 Social History Question Answer Notes LastModified by Organization Details LastModified Time Tobacco Smoking Status Never Smoker Not Available [facility] 11/06/2022 07:26:33 Do You Have An Advance Directive? Yes Information not available 05/20/2023 What Is Your Level Of Alcohol Consumption? Occasional [id number] Information not available 11/06/2022 Do You Wear A Helmet When Biking? No [id number] Information not available 11/06/2022 Is Blood Transfusion Acceptable In An Emergency? Yes Information not available 05/20/2023 What Is Your Level Of Caffeine Consumption? Moderate [id number] Information not available 11/06/2022 What Is Your Code Status? Full Code Information not available 05/20/2023 In The 14 Days Before Symptom Onset, Have You Had Close Contact With A Laboratory-confi rmed COVID-19 While That Case Was Ill? No [id number] Information not available 11/06/2022 In The 14 Days Before Symptom Onset, Have You Had Close Contact With A Person Who Is Under Investigation For COVID-19 While That Person Was Ill? No [id number] Information not available 11/06/2022 What Type Of Diet Are You Following? 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 5 Walking/bi roma Information not available 05/20/2023 On Those Days That You Engage In Moderate To Strenuous Exercise, How Many Minutes, On Average, Do You Exercise? 15 Information not available 05/20/2023 Have There Been Any Changes To Your Family Or Social Situation? Yes Limiting Where She Goes MIGRATION.0301 [id number] Information not available 11/06/2022 Do You Use Insect Repellent Routinely? Yes MIGRATION.0301 [id number] Information not available 11/06/2022 Do You Have A Medical Power Of Genetics Nurse? Yes Information not available 05/20/2023 Have You Ever Been Counseled For Unhealthy Alcohol Use? No MIGRATION.0301 [id number] Information not available 11/06/2022 Do You Have Any Pets? No MIGRATION.0301 [id number] Information not available 11/06/2022 What Is Your Relationship Status? MIGRATION.0301 [id number] Information not available 11/06/2022 Do You Use Your Seat Belt Or Car Seat Routinely? Yes MIGRATION.0301 [id number] Information not available 11/06/2022 Do You Have Smoke And Carbon Monoxide Detectors In Your Home? Yes MIGRATION.0301 [id number] Information not available 11/06/2022 Are There Any Smokers In Your House? No MIGRATION.0301 [id number] Information not available 11/06/2022 Do You Participate In Social Media? Yes MIGRATION.0301 [id number] Information not available 11/06/2022 What Types Of Sporting Activities Do You Participate In? Walk Information not available 05/20/2023 Do You Feel Stressed (tense, Restless, Nervous, Or Anxious, Or Unable To Sleep At Night)? [id number] MIGRATION.0301 [id number] Information not available 11/06/2022 Do You Use Any Illicit Or Recreational Drugs? No MIGRATION.0301 [id number] Information not available 11/06/2022 Do You Use Sunscreen Routinely? Yes MIGRATION.0301 [id number] Information not available 11/06/2022 Has Tobacco Cessation Counseling Been Provided? No MIGRATION.0301 [id number] Information not available 11/06/2022 Have You Recently Traveled Abroad? No MIGRATION.0301 [id number] Information not available 11/06/2022 Do You Have Any Dietary Restrictions? No MIGRATION.0301 114751 Information not available 11/06/2022 Do You Or Have You Ever Used Any Other Forms Of Tobacco Or Nicotine? No MIGRATION.0301 [id number] Information not available 11/06/2022 Sex: Unknown Functional Status Question Answer Note LastModified by Organization D etails LastModified Time What is your exercise level? None Information not available 05/20/2023 Mental Status None recorded. Family History Relationship Description Onset Age of this Age Resolved Age Notes LastModified by Organization Details LastModified Time Maternal Grandmother Diabetes mellitus deceas ed MIGRATION.051 [id number] Not available 11/06/2022 07:26:52 Paternal Uncle Malignant tumor of lung deceas ed MIGRATION.647 [id number] Not available 11/06/2022 07:26:52 Paternal Uncle Malignant neoplasm of liver deceas ed MIGRATION.198 [id number] Not available 11/06/2022 07:26:52 Father Malignant tumor of colon MIGRATION.141 [id number] Not available 11/06/2022 07:26:52 Father Malignant neoplasm of liver deceas ed MIGRATION.274 [id number] Not available 11/06/2022 07:26:52 Paternal Aunt Malignant neoplasm of liver deceas ed MIGRATION.574 [id number] Not available 11/06/2022 07:26:52 Brother Cirrhosis of liver MIGRATION.244 [id number] Not available 11/06/2022 07:26:52 Medical History Condition Response ARTHRITIS Y ALLERGIES/HAYFEVER Y HEADACHES/MIGRAINES Y ANXIETY DISORDER Y Gynecological History Statement/Question Response If Post Menopausal, Age at Menopause 53 Date of Last Mammogram 06/28/2022 Date of Last Pap Smear Date of Last Colonoscopy Most Recent Mammogram 07/11/2023 Obstetrics History GPAL:G 0 P 0 0 0 0 Immunizations Vaccine Type Date Status Note Provider Nam e and Address Organization Details Recorded Time Influenza, split virus, quadrivalent, PF 3 completed Vivian Suresh RN [facility] [place] - [facility] [employer] [facility] 07/01/2023 16:07:53 Influenza, split virus, trivalent, preservative 7 completed Not Available [facility] 11/06/2022 07:39:17 zoster, unspecified formulation 8 completed Not Available [facility] 11/06/2022 07:39:17 Influenza, split virus, trivalent, preservative 5 completed Not Available [facility] 11/06/2022 07:39:17 COVID-19, mRNA, LNP-S, PF, 100 mcg/0.5mL dose or 50 mcg/0.25mL dose 1 completed Not Available [facility] 11/06/2022 07:39:17 COVID-19, mRNA, LNP-S, PF, 100 mcg/0.5mL dose or 50 mcg/0.25mL dose 1 completed Not Available [facility] 11/06/2022 07:39:18 Influenza, split virus, quadrivalent, preservative 9 completed Not Available [facility] 11/06/2022 07:39:18 Tdap 9 completed Not Available [facility] 11/06/2022 07:39:18 Influenza, split virus, trivalent, preservative 4 completed Not Available [facility] 11/06/2022 07:39:18 Td(adult) unspecified formulation 9 completed Not Available [facility] 11/06/2022 07:39:18 Tdap 9 completed Not Available [facility] 11/06/2022 07:39:18 Past Encounters Encounter ID Performer Location Encounter Start Date Encounter Closed Date Diagnosis/Indication Diagnosis SNOMED-CT Code Diagnosis ICD10 Code Diagnosis Note [id number] [facility] [address] [place] [address] 05/04/2021 00:00:00 05/04/2021 19:09:13 [id number] [facility] [address] [place], [place] [address] [place] [address] 07/05/2021 00:00:00 07/05/2021 18:22:54 [id number] [facility] [address] [facility] [place] [address] 08/08/2021 00:00:00 08/08/2021 17:51:21 [id number] [facility] [place] [address] 12/04/2021 00:00:00 12/04/2021 16:13:48 [id number] [facility] [address] [facility] [place] [address] 12/25/2021 00:00:00 12/25/2021 16:01:00 [id number] [facility] [address] [place] [address] 04/10/2022 00:00:00 04/10/2022 14:43:20 [id number] [facility] [address] 05/15/2022 00:00:00 05/15/2022 15:26:18 [id number] Vivian Gomez NP [facility] [address] 05/20/2023 16:47:36 05/20/2023 18:06:27 Adult health examination [id number] Z00.00 Encouraged well balanced meals, active lifestyle, and routine vision and dental appts. Hyperlipidemia [id number] E78.5 Lipid panel repeatRosu vastatin 5 mg po nightly [id number] Vivian Gomez NP [address] [address] 07/01/2023 11:50:23 07/01/2023 13:53:33 Administration of influenza vaccine [id number] Z23 Health Concerns Section Related Observation LastModified by Organization Detai ls LastModified Time None Recorded Concern Status LastModified by Organization Details LastModified Time None Recorded Advance Directives Directive Y: Payers Encounter Date Sequence Insurance Name Policy Number Policy [place] Covered Member ID [place] Member ID Guarantor Name 05/20/2023 1 [place] [id number] 1 Shanna Hawthorne [id number] 12 Shanna Hawthorne 07/01/2023 1 [place] [id number] 1 Shanna Timlock [id number] 12 Shanna Hawthorne Notes Date Note Type Note Provider Name and Address Organization Details Recorded Time 05/20/2023 text/html Here for wellness visit. Labs after 08/23/23.Mammogr am scheduled for after 06/28/23. (jul 11, 2023.)WWE this week scheduled. Started having vaginal bleeding, had biopsy and neg CA. Has been on progesterone and had estrogen added on recently. Believes lining of uterus thickened and caused the bleeding.Ablatio n vaginal done. Vivian Gomez NP [address] [facility], [place] [address], [place], [address], [facility] [employer] [facility] 05/20/2023 18:04:05 OBGyn Episode No OBEpisode recorded.
--- OUTSIDE RECORDS SUMMARY | 2024-10-25 14:28 | XMS_ITS | Encounter Summary ---
Author Organization [facility] Address [address] [place] [address] Care Team Providers Care Aerospace Project Manager Name Role Phone Unavailable Primary Care Provider Unavailabl e Encounter Details Date Type Department Care Team (Late st Contact Info) Description 11/20/2023 Lab Requisition [facility] - DermPath Lab [address] [facility], [place] [address] Phuong Abdi DO [address] [facility] [address] [place] [address] Social History Tobacco Use Types Packs/Day Years Used Date Smoking Tobacco: Never Assessed Sex and Gender Information Value Date Recorded Sex Assigned at Not on file Gender Identity Not on file Sexual Orientation Not on file documented as of this encounter Plan of Treatment Not on file documented as of this encounter Procedures Procedure Name Priority Date/Time Associated Diagnosis Comments DERMATOPATHOLOGY Routine 11/20/2023 1:23 PM CDT documented in this encounter Results * DERMATOPATHOLOGY (11/20/2023 1:23 PM CDT) Case Report Dermatopathology Report Case: [id number] Authorizing Provider: Phuong Abdi DO Collected: 11/20/2023 01:23 PM Ordering Location: [facility] Physician [facility] - Received: 11/24/2023 06:38 AM DermPath Lab Pathologist: Carley Dockery MD Specimen: Skin, right upper arm 4:35 PM CDT DERMATOPATHOLOGY LABORATORY Final Diagnosis Specimen A. 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 Check margins. 4 4:35 PM CDT DERMATOPATHOLOGY LABORATORY Gross Description Specimen A: Received is one formalin filled container labeled with the patient's name and designated right upper arm. The specimen consists of a non-oriented ellipse of skin measuring 87f15v6 mm. The margin is inked green. The 12 o'clock and 6 o'clock tips are submitted in cassette 1. The remainder of the ellipse is serially sectioned and submitted in cassette 2-3. Jar 0. 4 4:35 PM CDT DERMATOPATHOLOGY LABORATORY Microscopic Description Specimen A. SKIN, right upper arm: The epidermis shows parakeratosis, full thickness disorderly maturation of keratinocytes, mitoses at different levels, and dyskeratotic cells. This lesion is not present at the margin of the specimen. There are fibroblasts and collagen bundles oriented parallel to the skin surface with elongated blood vessels, some of which are oriented perpendicular to the skin surface. 4 4:35 PM CDT DERMATOPATHOLOGY LABORATORY Disclaimer An external and internal positive and negative controls are appropriate for the histochemical, immunohistochemical and immunofluorescence stain(s) in this case (if any), except where stated explicitly. The performance characteristics of the stain(s) cited in this report were developed and its performance characteristic determined by the Dermatopathology Laboratory at [facility], directed by Dr. Danie Dukes. These tests need not be, and therefore are not, approved by the [place] Food and Drug Administration. The tests are used for clinical purposes. Billing Codes Specimen Charges Stain Charges 50914 1 4 4:35 PM CDT DERMATOPATHOLOGY LABORATORY Embedded Images 4 4:35 PM CDT DERMATOPATHOLOGY LABORATORY Pathology/Cytolo gy TISSUE SPECIMEN FROM SKIN / Unknown 11/20/2023 1:23 PM CDT 11/24/2023 6:38 AM CDT Phuong Abdi DO LAB - PATHOLOGY/C YTOLOGY ORDERABLES DERMATOPATHOLOGY LABORATORY [facility] - Department of Dermatology [address], [address] [phone] documented in this encounter Visit Diagnoses Not on filedocumented in this encounter
--- OUTSIDE RECORDS SUMMARY | 2024-10-25 14:28 | XMS_ITS | Encounter Summary ---
Author Organization [facility] Address [address] [place] [address] Care Team Providers Care Toe Trimmer Name Role Phone Unavailable Primary Care Provider Unavailabl e Encounter Details Date Type Department Care Team (Late st Contact Info) Description 06/01/2024 Lab Requisition [facility] - DermPath Lab [address] [facility], [place] [address] Phuong Abdi DO [address] [facility] [address] [place] [address] Social History Tobacco Use Types Packs/Day Years Used Date Smoking Tobacco: Never Assessed Sex and Gender Information Value Date Recorded Sex Assigned at Not on file Gender Identity Not on file Sexual Orientation Not on file documented as of this encounter Plan of Treatment Not on file documented as of this encounter Procedures Procedure Name Priority Date/Time Associated Diagnosis Comments DERMATOPATHOLOGY Routine 06/01/2024 2:21 PM CDT documented in this encounter Results * DERMATOPATHOLOGY (06/01/2024 2:21 PM CDT) Case Report Dermatopathology Report Case: [id number] Authorizing Provider: Phuong Abdi DO Collected: 06/01/2024 02:21 PM Ordering Location: [facility] Physician [facility] - Received: 06/02/2024 12:12 PM DermPath Lab Pathologist: Liya Dockery MD Specimen: Skin, right earlobe 4:30 PM CDT DERMATOPATHOLOGY LABORATORY Final Diagnosis Specimen A. 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 The specimen consists of a shave biopsy measuring 5x4x1 mm. Jar 0. 4:30 PM T DERMATOPATHOLOGY LABORATORY Microscopic Description Specimen A. SKIN, right earlobe: Within the dermis there are nodular aggregates of basaloid cells associated with fibromyxoid stroma and epithelial-stromal clefts. At the advancing margin of the neoplasm, there are smaller angulated nests that infiltrate the dermis. 4:30 PM T DERMATOPATHOLOGY LABORATORY Disclaimer An external and internal positive and negative controls are appropriate for the histochemical, immunohistochemical and immunofluorescence stain(s) in this case (if any), except where stated explicitly. The performance characteristics of the stain(s) cited in this report were developed and its performance characteristic determined by the Dermatopathology Laboratory at [facility], directed by Dr. Danie Dukes. These tests need not be, and therefore are not, approved by the [place] Food and Drug Administration. The tests are used for clinical purposes. Billing Codes Specimen Charges Stain Charges 93848 1 4:30 PM CDT DERMATOPATHOLOGY LABORATORY Embedded Images 4:30 PM T DERMATOPATHOLOGY LABORATORY Pathology/Cytolo gy TISSUE SPECIMEN FROM SKIN / Unknown 06/01/2024 2:21 PM CDT 06/02/2024 12:12 PM CDT Phuong Abdi DO LAB - PATHOLOGY/C YTOLOGY ORDERABLES DERMATOPATHOLOGY LABORATORY [facility] - Department of Dermatology [facility] [address] [place] [address], [address] [phone] documented in this encounter Visit Diagnoses Not on filedocumented in this encounter
== END 2024-10-25 12:32 | disposition home or self-care (01) ==
PROVIDERS: Emergency Provider Nurse Practitioner Family; PCP Nurse Practitioner Family
DX: B34.9 Viral infection, unspecified (principal); Z20.822 Contact with and (suspected) exposure to COVID-19; E78.5 Hyperlipidemia, unspecified
CPT/HCPCS: 87426; 87804; 99212; G0463

== ENCOUNTER 2024-11-20 11:08 | Emergency (ER) | payer MEDICARE, SELFPAY ==
--- OUTSIDE RECORDS SUMMARY | 2024-11-20 11:10 | XMS_ITS | Data Portability ---
Author Organization [facility], [facility] Address [address] [place] [address] [place] [address] Assessment Encounter Date Assessment Date Assessment LastModified by Organization Details LastModified Time 05/22/2023 05/22/2023 Annual gynecological exam performed. Patient will come back in a year unless there are new symptoms. [email or web address] Not available 05/22/2023 16:03:42 08/12/2024 08/12/2024 Annual gynecological exam performed. Patient will come back in a year unless there are new symptoms. [email or web address] Not available 08/12/2024 14:03:33 Plan of Treatment Reminders Order Date Submit Date Provider Last Modified By Organization Details Last Modified Time Details Appointments None recorded. Lab None recorded. Referral None recorded. Procedures None recorded. Surgeries dilation and curettage with hysteroscop y (SURG) 2022 023 [email or web address] [facility], [address], [address], [place], [address], 3 10:58:48 Imaging US, transvagina l 2023 024 [email or web address] [facility], [address], [place], [address], 4 19:53:43 DEXA, axial skeleton + vertebral fracture assessment 2023 024 [email or web address] Not available 5 18:57:48 US, pelvis, complete 2023 024 [facility], [address], [address], [place], [address], 4 04:01:51 MAMMO, screening, bilateral 2022 023 [facility], [address], [place], [address], 3 17:34:15 Medication Orders estradiol 0.025 mg/24 hr semiweekly transdermal patch 2023 024 [facility]2510, [address], [place], [address], 4 15:14:19 Prometrium 100 mg capsule 2023 024 [facility]2510, [address], [place], [address], 4 15:14:19 estradiol 0.5 mg tablet 2022 023 [facility], [address] [facility] [facility], [place], [place], [id number], 4 15:14:21 Prometrium 200 mg capsule 2022 023 [facility]50673, [address] [facility], [place], [place], [id number], 4 15:14:29 [place] 10 mg-325 mg tablet 2022 023 [facility]73292, [address], [place], [place], [id number], 3 15:49:26 Xanax 0.5 mg tablet 2022 023 [facility] #76411, [address] , [place], [place], [id number], 3 15:50:34 Zofran 8 mg tablet 2022 023 [facility]19649, [address] [facility] [address], [place], [place], [id number], 3 15:50:53 ibuprofen 800 mg tablet 2022 023 [facility] #71689, [address], [place], [place], [id number], 3 15:49:33 progesteron e micronized 100 mg capsule 2022 023 [email or web address] [facility]35491, [address], [place], [place], [id number], 3 16:20:49 Patient TargetsNo targets recorded. 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 Not Available [facility] (Lab) [address], [place], [address], 05/27/2023 15:46:55 08/12/20 24 08/12/2024 IMAGE GUIDE [...] as clini veena warra nted. Not Available [facility] ([facility]) [address], [place], [address], 08/21/2024 20:49:41 07/11/20 23 07/11/2023 MAMMO , scree jori, bilat eral No observ ation record ed. WHIT [facility] [address], [place], [address], 08/24/2024 16:31:11 08/20/20 24 08/20/2024 US, trans vagin al No observ ation record ed. [email or web address] [facility] [address], [place], [address], 08/25/2024 10:30:52 08/20/20 24 08/20/2024 US, trans vagin al No observ ation record ed. [email or web address] [address], [place], [address], 08/25/2024 10:30:53 Result Notes None recorded. Problems Name Problem SNOMED Code Status Onset Date Resolution Date Notes Provider Name and Address Organization Details Recorded Time Screenin g for malignan t neoplasm of cervix Completed 201405/15/2021 Pap Smear;Pra ctice ID: 0001 Chetna Cline [facility] 17:17:35 Screenin g for malignan t neoplasm of rectum Completed 201405/15/2021 Screening for malignant neoplasms of the rectum;Pr actice ID: 0001 Chetna Cline [facility] 17:17:37 Blood leukocyt e number above referenc e range [id number] Completed 201505/15/2021 Elevated white blood cell count, unspecifi ed;Practi ce ID: 0001 Chetnagela Cline [facility] 17:17:[address] Concept Completed 201505/15/2021 Encntr for doctor osteopathic exam (general) (routine) w/o abn findings; Practice ID: 0001 Chetna Cline [facility] 17:17:[address] Concept Completed 201605/15/2021 Encntr for general adult medical exam w/o abnormal findings; Practice ID: 0001 Chetna Cline [facility] 17:17:41 Leukocyt osis [id number] Completed 201405/15/2021 LEUKOCYTO SIS NOS;Recor ded Elsewhere : No Locati on: [facility] So urce: EHR Chron ic: N Practic e ID: 0001 Bill able Time: 04:30:00 PM Chetna pruett [facility] 17:17:32 Evaluati on finding Completed 201505/15/2021 Hematuria , unspecifi ed;Record ed Elsewhere : No Locati on: [facility] So urce: EHR Chron ic: N Practic e ID: 0001 Bill able Time: 02:29:08 PM Chetna Cline [facility] 17:17:28 Speciali zed medical examinat ion Completed 201305/15/2021 Gynecolog ical Examinati on;Record ed Elsewhere : No Locati on: [facility] So urce: EHR Chron ic: N Practic e ID: 0001 Bill able Time: 04:30:00 PM Chetna Cline [facility] 17:17:46 Urinary tract infectio us disease 69184672 Completed 201105/15/2021 Urinary Tract Infection ;Recorded Elsewhere : No Locati on: [facility] So urce: EHR Chron ic: N Practic e ID: 0001 Bill able Time: 04:00:00 PM Chetna Cline [facility] 17:17:48 Adult health examinat ion Completed 201205/15/2021 Routine Medical Exam;Balaji rded Elsewhere : No Locati on: [facility] So urce: EHR Chron ic: N Practic e ID: 0001 Bill able Time: 04:30:00 PM Chetna pruett [facility] 17:17:23 Overweig ht [id number] Completed 201405/15/2021 Overweigh t;Practic e ID: 0001 Chetna Cline [facility] 17:17:33 Atypical squamous cells of undeterm ined signific ance on cervical Papanico laou smear [id number] Completed 201505/15/2021 Atyp squam cell of undet signfc cyto smr crvx (ASC-US); Recorded Elsewhere : No Locati on: [facility] So urce: EHR Chron ic: N Practic e ID: 0001 Bill able Time: 10:02:14 AM Chetna Cline flynn [facility] 17:17:25 Body mass index 25-29 - overweig ht [id number] Completed 201505/15/2021 Body mass index (BMI) 26.0-26.9 , adult;Rec orded Elsewhere : No Locati on: [facility] So urce: EHR Chron ic: N Practic e ID: 0001 Bill able Time: 04:00:00 PM Chetna Cline flynn [facility] 17:17:27 Problem Notes None recorded. Procedures Surgical History Date Name Laterality Status Provider Name and Address Organization Details Recorded Time 05/23/20 23 Date of Last Pap Smear completed Elva Moreno [facility] 08/12/2024 14:08:02 10/14/19 23 Hysteroscopy completed Dmitri Dumas MD [address], [place], [address], [facility] 10/14/2022 15:21:00 08/28/20 22 Endometrial Biopsy completed Danika Carson [facility]- [address], [place], [address], [facility] 08/28/2022 12:49:13 06/28/20 22 Date of Last Mammogram completed Felicia Beth [facility] 05/22/2023 15:51:49 09/08/19 19 Date of Last Colonoscopy completed Felicia Beth [facility] 05/22/2023 15:53:04 09/08/19 19 Colonoscopy completed Flavia Xochilt [facility] 05/12/2020 12:00:21 03/24/20 18 completed Chetna Cline [facility] 05/15/2021 17:20:25 09/08/19 12 Colonoscopy completed Flavia Lemon [facility] 05/12/2020 12:00:03 procedure on gallbladder [facility] 05/12/2020 11:59:47 Imaging Results Imaging Date Name Status LastModified by Organization Details LastModified Time 07/11/2023 MAMMO, screening, bilateral completed [facility] [address], [place], [address], 08/24/2024 16:31:11 08/20/2024 US, transvaginal completed [email or web address] [facility] [address], [place], [address], 08/25/2024 10:30:52 08/20/2024 US, transvaginal completed Marisa [address], [place], [address], 08/25/2024 10:30:53 Procedure Notes None recorded. Medical Equipment None Reported. Allergies Allergen ID Allergen Name Allergen Category Reaction Reaction Severity Criticality Documentation Date Start Date Code Code System Note Provider Name and Address Organization Details Recorded Time 1948 ragweed pollen environme nt Not available Not available Not available 05/12/2020 66636 UNK Lfavia Xochilt [facility] 0 11:56:11 No known drug allergies [...] Prescrib ed Elsewher e: Yes Loca tion: [facility] odify By: marisabel castillo DateTime : [...] Prescrib ed Elsewher e: Yes Loca tion: [facility] odify By: marisabel castillo DateTime : [...] ed Elsewher e: Yes Loca tion: [facility] odify By: [email or web address] Wicho mauricio DateTime : 03/20/20 04:30:00 PM Not Available Not Available Not Available Vagifem 10 mcg vaginal tablet insert 1 tablet by vaginal route 2 times every week 12/29 completed Prescrib ed Elsewher e: Yes Loca tion: [facility] odify By: tgestefani castillo DateTime : 12/30/19 12 04:00:00 PM Not Available Not Available Not Available Picato 0.015 % topical gel 05/12 completed Not Available Not Available Not Available vitamin E succinate 134 mg (200 unit) tablet 03/20 completed Prescrib ed Elsewher e: Yes Loca tion: [facility] odify By: amkory Yrn luisaunter DateTime [...] Updated DateTime 09/30/2022 165.1 cm 27.1 kg/m2 69520.56 g 108 mm[Hg] 68 mm[Hg] Kristin Mathis [facility] 3 14:49:53 Date Recorded Body height Body mass index (BMI) Body weight Systolic blood pressure Diastolic blood pressure Provider Name and Address Organization Details Last Updated DateTime 10/14/2022 165.1 cm 27.1 kg/m2 23347.56 g 122 mm[Hg] 62 mm[Hg] [facility] 3 14:26:26 Date Recorded Body height Body mass index (BMI) Body weight Systolic blood pressure Diastolic blood pressure Provider Name and Address Organization Details Last Updated DateTime 05/22/2023 165.1 cm 26.3 kg/m2 96208.59 g 140 mm[Hg] 90 mm[Hg] Felicia [facility] 3 16:07:57 Date Recorded Systolic blood pressure Diastolic blood pressure Provider Name and Address Organization Details Last Updated DateTime 05/22/2023 124 mm[Hg] 76 mm[Hg] Danika Carson, [facility]- [address], [place], [address], [facility] 05/22/2023 17:04:50 Date Recorded Body height Body mass index (BMI) Body weight Systolic blood pressure Diastolic blood pressure Provider Name and Address Organization Details Last Updated DateTime 08/12/2024 165.1 cm 27.1 kg/m2 05824.56 g 108 mm[Hg] 70 mm[Hg] Elva Moreno [facility] 14:07:24 Social History Question Answer Notes LastModified by Organizat ion Details LastModified Time Tobacco Smoking Status Never Smoker Kiara Castañeda flynn, [facility] 10/14/2022 14:16:14 Do You Have An Advance Directive? No Information not available 05/16/2021 What Is Your Level Of Alcohol Consumption? Occasional [id number] Information not available 07/11/2020 Are You Blind [...] Or The Highest Degree You Have Received? 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 [id number] Information not available 05/16/2021 Do You Use Any Illicit Or Recreational Drugs? No Information not available 05/16/2021 Do You Use Sunscreen Routinely? Yes Information not available 05/16/2021 Have You Used IV Drugs? No Information not available 05/16/2021 Sex: Female Functional Status Question Answer Note LastModified by Organizat ion Details LastModified Time Do you have difficulty walking or climbing stairs? No [email or web address] Information not available 10/14/2022 Are you able to walk? YESWOREST Information not available 05/16/2021 Are you able to care for yourself? Yes [email or web address] Information not available 10/14/2022 Do you have difficulty dressing or bathing? No [email or web address] Information not available 10/14/2022 What is your [...] SNOMED-CT Code Diagnosis ICD10 Code Diagnosis Note [id number] Danika Carson [facility] [address] [address] 05/12/2020 11:41:34 05/12/2020 12:33:04 Mass of left breast [id number] 5009907 N63.20 Z12.31 Gynecologi c examination 99288116 Z01.419 Take Calcium with Vitamin D 12-1500mg daily. Do monthly self breast exams. It is advised to get annual flu shot in the fall and she could obtain at [facility] or [facility] clinic. If you haven't received the Tdap [...] respond to this email Climacteric flushing 427 551512 N95.1 Taking HRT every other day. WOrking [...] migraine w/ visual changes, breast cancer dx, ID/stroke, DVT/PE, Endometria l cancer. Please contact office with any new or worsening side effects or adverse reactions. Or if a medical emergency please go to nearest ED/[facility] care for further evaluation . [id number] Danika Carson [facility] [address] [address] 05/16/2021 16:36:14 05/16/2021 18:22:13 Gynecologic examination 11031912 Z01.419 Take Calcium with Vitamin D 12-1500mg daily. Do monthly self breast exams. It is advised to get annual flu shot in the fall and she could obtain at [facility] or [facility] care clinic. If you haven't [...] test.Last dex 2018 wnlColon-U TD Menopausal symptom 62816 002 N95.1 Tried to wean off last year but kept having hot flashes, irritabili ty return.We again discussed R/B's of continuing this HRT therapy. e understand s the risks & opts to continue.S he will continue taking daily vs taking every other day as she was last year. Urinary symptoms 1539545 08 R39.9 [id number] Danika Carson [facility] [address] [address] 05/20/2022 11:56:53 05/20/2022 12:20:40 Gynecologic examination 63308192 Z01.419 Z11.51 Take Calcium with Vitamin D 12-1500mg daily. Do monthly self breast exams. It is advised to get annual flu shot in the fall and she could obtain at [facility] or [facility] care clinic. If you haven't [...] Labs PCPMammo ordered Hormone re placement therapy [id number] Z79.890 N95.1 Counseled on the following: Females >10yrs past menopause (& age 60yo+) are generally not good candidates for starting (1st use) systemic HT. Decisions to continue systemic HT > a decade past menopause (or past age 60yo) requires balancing R/B's; & individual ized needs. Non-hormon al options may be more appropriat e for females >10yrs past menopause. [id number] Danika Carson [facility] [address] [address] 08/19/2022 09:54:20 08/19/2022 11:08:11 Abnormal uterine bleeding 5949612654 9100 N93.9 PMB x 2wks spotting, brownishCh [...] All questions answered to patient satisfacti on. [id number] Asiya Cline [facility] [address] [address] 08/26/2022 10:21:26 08/26/2022 11:11:28 Postmenopausal bleeding 44180319 N95.0 [id number] [facility] [address] [address] 08/28/2022 12:09:39 08/28/2022 12:50:20 Postmenopausal bleeding 04165374 N95.0 Reviewed US results today.Not further sx's [...] care not including time spent on procedure. [id number] Dmitri Dumas MD [facility] [address] [address] 09/30/2022 14:19:06 09/30/2022 16:22:45 Postmenopausal bleeding 02787806 N95.0 this patient is a 62-year-ol d [...] will be in the office. Preoperative state 88933 002 Z78.9 [id number] Dmitri Dumas MD [facility] [address] [address] 10/14/2022 14:14:02 10/14/2022 15:24:45 Postmenopausal bleeding 99822299 N95.0 Hysterosco py D&C completed without complicati ons. well tolerated [id number] [facility] [address] [address] 05/22/2023 16:01:40 05/22/2023 17:14:34 Gynecologic examination 52217787 Z01.419 Z11.51 Take Calcium with Vitamin D 12-1500mg daily. Do monthly self breast exams. It is advised to get annual flu shot in the fall and she could obtain at [facility] or [facility] care clinic. If you haven't [...] Screen PCPRoutine Labs PCPMammo ordered Menopausal symptom 79716 002 N95.1 Tried to wean off last [...] weaning based on age. Screening mammography 24 455790 Z12.31 [id number] ERIK Sharma [facility] [address] [address] 08/12/2024 13:47:13 08/12/2024 15:16:59 Gynecologic examination 11764218 Z01.419 WWEpostmen opausalPap - updatedSTI screen - [...] estions have been answered. Screening for osteoporosis 867321722 Z13.820 Hormone re placement therapy 689488399 Z79.890 Discussed HRT, reviewed with patient the importance of taking progestero ne if taking estrogen. Reviewed risk of unopposed estrogen.r ecommended pelvic u/s since she has been taking estrogen aloneshe would like to continue on HRTwill switch to transderma l estradiol with nightly oral prometrium r/b/a reviewed [id number] Smita Palomino [facility] [address] [address] 08/20/2024 16:25:24 08/20/2024 17:12:29 Endometrium thickened 727409780 R93.89 Health Concerns Section Related Observation LastModified by Organization Detai ls LastModified Time None Recorded Concern Status LastModified by Organization Details LastModified Time None Recorded Advance Directives Directive N: Payers Encounter Date Sequence Insurance Name Policy Number Policy [place] Covered Member ID [place] Member ID Guarantor Name 09/30/2022 1 [place] [id number] 1 Shanna Schumacher Deblock [id number] Shanna Deblock 10/14/2022 1 [place] [id number] 1 Shanna S Deblock [id number] Shanna Deblock 05/22/2023 1 [place] [id number] 1 Shanna Schumacher Deblock [id number] Shanna Deblock 08/12/2024 1 [employer] [id number] Shanna Timlock [id number] Shanna Timlock 08/20/2024 1 [employer] [id number] Shanna Deblock [id number] Shanna Hawtohrne Notes Date Note Type Note Provider Name [...] this issue. We spent over 40 minutes exid-ne-odus. Made a decision to perform surgery. I explained hysteroscopy and D&C to her in great detail detail. I explained risks, benefits, and alternatives. We talked about endometrial cancer. We talked about postmenopausal bleeding. Talked about hormone replacement therapy and the risks. She will return for hysteroscopy D&C. This will be in the office. Dmitri Dumas MD [address], [place], [address], [facility] 09/30/2022 15:36:54 3 text/html 62-year-old female with postmenopausal bleeding who failed endometrial biopsy in the office with a Pipelle. She returns for office hysteroscopy D&C. Dmitri Dumas MD [address], [place], [address], [facility] 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 08/12/2024 15:15:24 OBGyn Episode Ob Episode Information Episode Created Date Number of Fetuses Patient Bloodtype Patient rh Status Prepregnancy Weight lbs Domestic Partner Domestic Partner Phone Father Name [employer] Status 05/12/20 20 1 CLOSED Fetus Data [...] Domestic Partner Domestic Partner Phone Father Name [employer] Status 05/12/20 20 1 CLOSED Fetus Data [...] Domestic Partner Domestic Partner Phone Father Name [employer] Status 05/12/20 20 1 CLOSED Fetus Data [...] Domestic Partner Domestic Partner Phone Father Name [employer] Status 05/12/20 20 1 CLOSED Fetus Data [...]
--- OUTSIDE RECORDS SUMMARY | 2024-11-20 11:10 | XMS_ITS | Clinical Summary ---
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 Gender Identity Not on file Sexual Orientation Not on file Plan of Treatment Health Maintenance Due Date Last Done Comments DEXA Bone Density 1958 Hepatitis C Virus (HCV) Screening 1958 Pap Smear 1979 Cervical Cancer Screening (CCS) 1988 HPV/Cotest 1988 Colonoscopy 2003 Colorectal Cancer Screening 2003 Cologuard 2008 Immunochemical Fecal Occult Blood 2008 Mammogram 2008 Pneumococcal Immunization (50+ years) (1 of 1 - PCV) 2008 Zoster Immunization (1 of 2) 2008 08/03/2018 Influenza Immunization (#1) 05/09/202406/08, 05/20/2020, 06/22/2019, Additional history exists SARS-COV-2 Immunization ( season) 2024 08/10/2021, 10/30/2020, [...]
--- OUTSIDE RECORDS SUMMARY | 2024-11-20 11:10 | XMS_ITS | Referral Summary ---
Author Organization [facility] Address [address] [place] [place] [address] Care Team Providers Care Payroll Examiner Name Role Phone Unavailable Primary Care Provider Unavailabl e Source Comments [facility],non-owned Affiliates and Associated Physician Practices is amultiple site organization consisting of ambulatory clinics and hospital sitesin [place], [place], [place] and [place]. This disclosure is being madepursuant to the Care Everywhere program and may not contain all information available regarding this patient. Last updated 18.[facility] [employer] Social History Tobacco Use Types Packs/Day Years Used Date Smoking Tobacco: Never Assessed Sex and Gender Information Value Date Recorded Sex Assigned at Not on file Gender Identity Not on file Sexual Orientation Not on file Plan of Treatment Not on file
--- OUTSIDE RECORDS SUMMARY | 2024-11-20 11:10 | XMS_ITS | Clinical Summary ---
Author Organization [facility] Rumpus Address [address] [place] [address] Care Team Providers Care Security Administrator Name Role Phone Unavailable Primary Care Provider Unavailabl e Source Comments [facility],non-owned Affiliates and Associated Physician Practices is amultiple site organization consisting of ambulatory clinics and hospital sitesin [place], [place], [place] and [place]. This disclosure is being madepursuant to the Care Everywhere program and may not contain all information available regarding this patient. Last updated 18.[facility] Max Rumpus Social History Tobacco Use Types Packs/Day Years [...] to complete this topic MENINGOCOCCAL (Group B) VACC INE SHARED DECISION-MAKING Aged Out No longer eligibl e based on patient's age to complete this topic MENINGOCOCCAL GROUPS A/C/Y/W VACCINE Aged Out No longer eligible b ased on patient's age to complete this topic
--- OUTSIDE RECORDS SUMMARY | 2024-11-20 11:10 | XMS_ITS | Clinical Summary ---
Author Organization [facility] Address [address] [place] [id number] Care Team Providers Care Contract Lead Name Role Phone Unavailable Primary Care Provider [...]
--- OUTSIDE RECORDS SUMMARY | 2024-11-20 11:11 | XMS_ITS | Encounter Summary ---
Author Organization [facility] Address [address] [place] [address] Care Team Providers Care Whiteprinting Machine Operator Name Role Phone Unavailable Primary Care Provider Unavailabl e Encounter Details Date Type Department Care Team (Late st Contact Info) Description 06/01/2024 Lab Requisition [facility] - DermPath Lab [address] [facility], [place] [address] Phuong Abdi DO [address] [facility] [address] [place] [address] Social History Tobacco Use Types Packs/Day Years [...] PM CDT) Case Report Dermatopathology Report Case: [id number] Authorizing Provider: Phuong Abdi DO Collected: 06/01/2024 02:21 PM Ordering Location: [facility] - Received: 06/02/2024 12:12 PM DermPath Lab [...] characteristic determined by the Dermatopathology Laboratory at [facility], directed by Dr. Danie Dukes. These tests need not be, and therefore are not, approved by the [place] Food and Drug Administration. The tests are used for clinical purposes. Billing Codes Specimen Charges Stain Charges 86640 1 4:30 PM CDT DERMATOPATHOLOGY LABORATORY Embedded Images 4:30 PM T DERMATOPATHOLOGY LABORATORY Pathology/Cytolo gy TISSUE SPECIMEN FROM SKIN / Unknown 06/01/2024 2:21 PM CDT 06/02/2024 12:12 PM CDT Phuong Abdi DO LAB - PATHOLOGY/C YTOLOGY ORDERABLES DERMATOPATHOLOGY LABORATORY [facility] - Department of Dermatology [facility] Medicine [address] [place] [address], [address] [phone] documented in this encounter Visit Diagnoses Not on filedocumented in this encounter
--- OUTSIDE RECORDS SUMMARY | 2024-11-20 11:11 | XMS_ITS | Patient Health Summary ---
Author Organization [facility] Address [address] [place] [address] Care Team Providers Care Medical Education Coordinator Name Role Phone Unavailable Primary Care Provider Unavailabl e Note from [facility],non-owned Affiliates and Associated Physician Practices is amultiple site organization consisting of ambulatory clinics and hospital sitesin [place], [place], [place] and [place]. This disclosure is being madepursuant to the Care Everywhere program and may not contain all information available regarding this patient. Last updated 18.[facility] Social History Tobacco Use Types Packs/Day [...] is included. Case Report Dermatopathology Report Case: [id number] Authorizing Provider: Phuong Abdi DO Collected: 06/01/2024 02:21 PM Ordering Location: [facility] - Received: 06/02/2024 12:12 PM [...] characteristic determined by the Dermatopathology Laboratory at [facility], directed by Dr. Danie Dukes. These tests need not be, and therefore are not, approved by the [place] Food and Drug Administration. The tests are used for clinical purposes. Billing Codes Specimen Charges Stain Charges 39353 1 4:30 PM CDT DERMATOPATHOLOGY LABORATORY Embedded Images 4:30 PM CDT DERMATOPATHOLOGY LABORATORY Pathology/Cytolo gy TISSUE SPECIMEN FROM SKIN / Unknown 06/01/2024 2:21 PM CDT 06/02/2024 12:12 PM CDT Phuong Abdi DO LAB - PATHOLOGY/C YTOLOGY ORDERABLES DERMATOPATHOLOGY LABORATORY [facility] - Department of Dermatology [address], [address] [phone]
--- OUTSIDE RECORDS SUMMARY | 2024-11-20 11:11 | XMS_ITS | Encounter Summary ---
Author Organization [facility] Address [address] [place] [address] Care Team Providers Care Diesel Trailer Mechanic Name Role Phone Unavailable Primary Care Provider Unavailabl e Encounter Details Date Type Department Care Team (Late st Contact Info) Description 04/08/2023 Lab Requisition [facility] - Derm[facility] Lab [address] [facility], [place] [address] Phuong Abdi DO [address] [facility] 3 [place] [address] Social History Tobacco Use Types Packs/Day Years [...] AM CDT) Case Report Dermatopathology Report Case: [id number] Authorizing Provider: Phuong Abdi DO Collected: 04/08/2023 09:24 AM Ordering Location: [facility] DermPath Lab Received: 04/08/2023 03:25 PM [...] characteristic determined by the Dermatopathology Laboratory at [facility], directed by Dr. Danie Dukes. These tests need not be, and therefore are not, approved by the [place] Food and Drug Administration. The tests are used for clinical purposes. Billing Codes Specimen Charges Stain Charges 94689 1 3 5:23 PM CDT DERMATOPATHOLOGY LABORATORY Embedded Images 3 5:23 PM CDT DERMATOPATHOLOGY LABORATORY Pathology/Cytolo gy TISSUE SPECIMEN FROM SKIN / Unknown 04/08/2023 9:24 AM CDT 04/08/2023 3:25 PM CDT Phuong Abdi DO LAB - PATHOLOGY/C YTOLOGY ORDERABLES DERMATOPATHOLOGY LABORATORY [facility] - Department of Dermatology [facility] Medicine [address] [place] [address], [address] [phone] documented in this encounter Visit Diagnoses Not on filedocumented in this encounter
--- OUTSIDE RECORDS SUMMARY | 2024-11-20 11:11 | XMS_ITS | Encounter Summary ---
Author Organization [facility] Address [address] [place] [address] Care Team Providers Care Group Sales Manager Name Role Phone Unavailable Primary Care Provider Unavailabl e Encounter Details Date Type Department Care Team (Late st Contact Info) Description 11/20/2023 Lab Requisition [facility] - DermPath Lab [address] [facility], [place] [address] Phuong Abdi DO [address] [facility] 3 [place] [address] Social History Tobacco Use Types Packs/Day Years [...] PM CDT) Case Report Dermatopathology Report Case: [id number] Authorizing Provider: Phuong Abdi DO Collected: 11/20/2023 01:23 PM Ordering Location: [facility] Physician [facility] - Received: 11/24/2023 06:38 AM DermPath Lab [...] of a non-oriented ellipse of skin measuring 64y49a2 mm. The margin is inked green. The [...] characteristic determined by the Dermatopathology Laboratory at [facility], directed by Dr. Danie Dukes. These tests need not be, and therefore are not, approved by the [place] Food and Drug Administration. The tests are used for clinical purposes. Billing Codes Specimen Charges Stain Charges 70192 1 4 4:35 PM CDT DERMATOPATHOLOGY LABORATORY Embedded Images 4 4:35 PM CDT DERMATOPATHOLOGY LABORATORY Pathology/Cytolo gy TISSUE SPECIMEN FROM SKIN / Unknown 11/20/2023 1:23 PM CDT 11/24/2023 6:38 AM CDT Phuong Abdi DO LAB - PATHOLOGY/C YTOLOGY ORDERABLES DERMATOPATHOLOGY LABORATORY [facility] - Department of Dermatology [address], [address] [phone] documented in this encounter Visit Diagnoses Not on filedocumented in this encounter
--- OUTSIDE RECORDS SUMMARY | 2024-11-20 11:11 | XMS_ITS | Encounter Summary ---
Author Organization [facility] Address [address] [place] [address] Care Team Providers Care Archery Equipment Hay Sorter Name Role Phone Unavailable Primary Care Provider Unavailabl e Encounter Details Date Type Department Care Team (Late st Contact Info) Description 11/06/2023 Lab Requisition [facility] - Derm[facility] Lab [address] [facility] [place] [address] Phuong Abdi DO [address] [facility] 3 [place] [address] Social History Tobacco Use Types Packs/Day Years [...] Comments DERMATOPATHOLOGY Routine 11/06/2023 11:1 7 AM PESTICIDE CONTROL INSPECTOR documented in this encounter Results * DERMATOPATHOLOGY (11/06/2023 11:17 AM PESTICIDE CONTROL INSPECTOR) Case Report Dermatopathology Report Case: [id number] Authorizing Provider: Phuong Abdi DO Collected: 11/06/2023 11:17 AM Ordering Location: [facility] - Received: 11/10/2023 06:48 AM DermPath Lab Pathologist: Aziza Dukes MD Specimens: A) - Skin, right upper back B) - Skin, right upper arm 2:36 PM PESTICIDE CONTROL INSPECTOR DERMATOPATHOLOGY LABORATORY Final Diagnosis Specimen A. SKIN, right upper back: BASAL CELL CARCINOMA, SUPERFICIAL MULTIFOCAL (C44.519) Specimen B. 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 Jar 0. 2:36 PM [facility] DERMATOPATHOLOGY LABORATORY Microscopic Description Specimen A. SKIN, right upper back: Attached to the undersurface of the epidermis, there are small aggregates of basaloid cells with a high nuclear to cytoplasmic ratio and peripheral palisading. Specimen B. SKIN, right upper arm: The epidermis shows parakeratosis, full thickness disorderly maturation of keratinocytes, mitoses at different levels, and dyskeratotic cells. 2:36 PM [facility] DERMATOPATHOLOGY LABORATORY Disclaimer An external and internal positive and negative controls are appropriate for the histochemical, immunohistochemical and immunofluorescence stain(s) in this case (if any), except where stated explicitly. The performance characteristics of the stain(s) cited in this report were developed and its performance characteristic determined by the Dermatopathology Laboratory at [facility], directed by Dr. Danie Dukes. These tests need not be, and therefore are not, approved by the [place] Food and Drug Administration. The tests are used for clinical purposes. Billing Codes Specimen Charges Stain Charges 79508 04498 1 1 4 2:36 PM [facility] DERMATOPATHOLOGY LABORATORY Embedded Images 2:36 PM [facility] DERMATOPATHOLOGY LABORATORY Pathology/Cytology TISSUE SPECIMEN FROM SKIN / Unknown 11/06/2023 11:17 AM PESTICIDE CONTROL INSPECTOR 11/10/2023 6:48 AM PESTICIDE CONTROL INSPECTOR Miscellaneous samples (specimen) TISSUE SPECIMEN FROM SKIN / Unknown 11/06/2023 11:17 AM PESTICIDE CONTROL INSPECTOR 11/10/2023 6:48 AM PESTICIDE CONTROL INSPECTOR Phuong Abdi DO LAB - PATHOLOGY/C YTOLOGY ORDERABLES DERMATOPATHOLOGY LABORATORY [facility] - Department of Dermatology [address], [address] [phone] documented in this encounter Visit Diagnoses Not on filedocumented in this encounter
--- OUTSIDE RECORDS SUMMARY | 2024-11-20 11:11 | XMS_ITS | Data Portability ---
Author Organization [facility] [employer]!, Main Office Address [address] [place] [address] Assessment No assessment recorded. Plan of Treatment Reminders Order Date Submit Date Provider Last Modified By Organization Details Last Modified Time Details Appointments None recorde d. Lab lipid panel, serum 023 05/20/20 23 [facility] (Lab), [address] [place], [address], 3 08:25:04 Referral None recorde d. Procedures None recorde d. Surgeries None recorde d. Imaging None recorde d. Medication Orders None recorde d. Patient TargetsNo targets recorded. Patient Instructions Encounter Date Encounter Id Patient Instructions Last Modified By Organization Details Last Modified Time 05/20/2023 [id number] Fu in 1 year for wellness. [email or web address] [...] Care in Diabe drew(A DA). Not Available [address] [address] [place], [address], 08/26/2022 13:29:10 08/23/20 22 08/26/2022 T4, FREE T4, free 1.1 NG/dL 0.8-1. 8 normal Not Available [address] [place], [address], 08/26/2022 13:29:09 08/23/20 22 08/26/2022 TSH W/REF FAHEEM TO FT4 TSH w/reflex to FT4 6.05 mIU/L 0.40-4 .50 high Not Available [address], [address], 08/26/2022 13:29:09 08/23/20 22 08/26/2022 CBC (INCL UDES DIFF/ PLT) white blood cell count 6.1 thous and/u L 3.8-10 .8 normal Not Available [address], [address], 08/26/2022 13:29:08 08/23/20 22 08/26/2022 CBC (INCL UDES DIFF/ PLT) red blood cell count 4.37 guillermo on/uL 3.80-5 .10 normal Not Available [address], [address], 08/26/2022 13:29:08 08/23/20 22 08/26/2022 CBC (INCL UDES DIFF/ PLT) hemoglobin 12.1 g/dL 11.7-1 5.5 normal Not Available [address], [address], 08/26/2022 13:29:08 08/23/20 22 08/26/2022 CBC (INCL UDES DIFF/ PLT) hematocrit 36.1 % 35.0-4 5.0 normal Not Available [address], [address], 08/26/2022 13:29:08 08/23/20 22 08/26/2022 CBC (INCL UDES DIFF/ PLT) MCV 82.6 fL 80.0-1 00.0 normal Not Available [address], [address], 08/26/2022 13:29:08 08/23/20 22 08/26/2022 CBC (INCL UDES DIFF/ PLT) MCH 27.7 pg 27.0-3 3.0 normal Not Available [address], [address], 08/26/2022 13:29:08 08/23/20 22 08/26/2022 CBC (INCL UDES DIFF/ PLT) MCHC 33.5 g/dL 32.0-3 6.0 normal Not Available [address], [address], 08/26/2022 13:29:08 08/23/20 22 08/26/2022 CBC (INCL UDES DIFF/ PLT) RDW 15.1 % 11.0-1 5.0 high Not Available [address], [address], 08/26/2022 13:29:08 08/23/20 22 08/26/2022 CBC (INCL UDES DIFF/ PLT) platelet count 397 thous and/u L 140-40 0 normal Not Available [address], [address], 08/26/2022 13:29:08 08/23/20 22 08/26/2022 CBC (INCL UDES DIFF/ PLT) MPV 9.7 fL 7.5-12 .5 normal Not Available [address], [address], 08/26/2022 13:29:08 08/23/20 22 08/26/2022 CBC (INCL UDES DIFF/ PLT) absolute neutrophils 3190 cells /uL 1500-7 800 normal Not Available [address], [address], 08/26/2022 13:29:08 08/23/20 22 08/26/2022 CBC (INCL UDES DIFF/ PLT) absolute lymphocytes 2105 cells /uL 850-39 00 normal Not Available [address], [address], 08/26/2022 13:29:08 08/23/20 22 08/26/2022 CBC (INCL UDES DIFF/ PLT) absolute monocytes 512 cells /uL 200-95 0 normal Not Available [address], [address], 08/26/2022 13:29:08 08/23/20 22 08/26/2022 CBC (INCL UDES DIFF/ PLT) absolute eosinophils 201 cells /uL 15-500 normal Not Available [address], [address], 08/26/2022 13:29:08 08/23/20 22 08/26/2022 CBC (INCL UDES DIFF/ PLT) absolute basophils 92 cells /uL 0-200 normal Not Available [address], [address], 08/26/2022 13:29:08 08/23/20 22 08/26/2022 CBC (INCL UDES DIFF/ PLT) neutrophils 52.3 % normal Not Available [address] [place], [address], 08/26/2022 13:29:08 08/23/20 22 08/26/2022 CBC (INCL UDES DIFF/ PLT) lymphocytes 34.5 % normal Not Available [address], [address], 08/26/2022 13:29:08 08/23/20 22 08/26/2022 CBC (INCL UDES DIFF/ PLT) monocytes 8.4 % normal Not Available [address], [address], 08/26/2022 13:29:08 08/23/20 22 08/26/2022 CBC (INCL UDES DIFF/ PLT) eosinophils 3.3 % normal Not Available [address], [address], 08/26/2022 13:29:08 08/23/20 22 08/26/2022 CBC (INCL UDES DIFF/ PLT) basophils 1.5 % normal Not Available [address], [address], 08/26/2022 13:29:08 08/23/20 22 08/26/2022 COMPR EHENS PAULO METAB OLIC PANEL glucose 91 mg/dL 65-99 normal Fasti ng refer ence inter thelma Not Available [address], [address], 08/26/2022 13:29:08 08/23/20 22 08/26/2022 COMPR EHENS PAULO METAB OLIC PANEL urea nitrogen (BUN) 18 mg/dL 7-25 normal Not Available [address], [address], 08/26/2022 13:29:08 08/23/20 22 08/26/2022 COMPR EHENS PAULO METAB OLIC PANEL creatinine 0.84 mg/dL 0.50-1 .05 normal Not Available [address], [address], 08/26/2022 13:29:08 08/23/20 22 08/26/2022 COMPR EHENS [...] kdoqi /gfr% 5Fcal culat or Not Available [address], [address], 08/26/2022 13:29:08 08/23/20 22 08/26/2022 COMPR EHENS PAULO METAB OLIC PANEL BUN/creatini ne ratio not applic able (calc ) 6-22 Not Available [address], [address], 08/26/2022 13:29:08 08/23/20 22 08/26/2022 COMPR EHENS PAULO METAB OLIC PANEL sodium 138 mmol/ L 135-14 6 normal Not Available [address], [address], 08/26/2022 13:29:08 08/23/20 22 08/26/2022 COMPR EHENS PAULO METAB OLIC PANEL potassium 3.7 mmol/ L 3.5-5. 3 normal Not Available [address], [address], 08/26/2022 13:29:08 08/23/20 22 08/26/2022 COMPR EHENS PAULO METAB OLIC PANEL chloride 102 mmol/ L 98-110 normal Not Available [address], [address], 08/26/2022 13:29:08 08/23/20 22 08/26/2022 COMPR EHENS PAULO METAB OLIC PANEL carbon dioxide 30 mmol/ L 20-32 normal Not Available [address], [address], 08/26/2022 13:29:08 08/23/20 22 08/26/2022 COMPR EHENS PAULO METAB OLIC PANEL calcium 9.5 mg/dL 8.6-10 .4 normal Not Available [address], [address], 08/26/2022 13:29:08 08/23/20 22 08/26/2022 COMPR EHENS PAULO METAB OLIC PANEL protein, total 6.9 g/dL 6.1-8. 1 normal Not Available [address], [address], 08/26/2022 13:29:08 08/23/20 22 08/26/2022 COMPR EHENS PAULO METAB OLIC PANEL albumin 4.2 g/dL 3.6-5. 1 normal Not Available [address], [address], 08/26/2022 13:29:08 08/23/20 22 08/26/2022 COMPR EHENS PAULO METAB OLIC PANEL globulin 2.7 g/dL_ (calc ) 1.9-3. 7 normal Not Available [address], [address], 08/26/2022 13:29:08 08/23/20 22 08/26/2022 COMPR EHENS PAULO METAB OLIC PANEL albumin/glob ulin ratio 1.6 (calc ) 1.0-2. 5 normal Not Available [address], [address], 08/26/2022 13:29:08 08/23/20 22 08/26/2022 COMPR EHENS PAULO METAB OLIC PANEL bilirubin, total 0.4 mg/dL 0.2-1. 2 normal Not Available [address], [address], 08/26/2022 13:29:08 08/23/20 22 08/26/2022 COMPR EHENS PAULO METAB OLIC PANEL alkaline phosphatase 58 U/L 37-153 normal Not Available [address], [address], 08/26/2022 13:29:08 08/23/20 22 08/26/2022 COMPR EHENS PAULO METAB OLIC PANEL AST 19 U/L 10-35 normal Not Available [address], [address], 08/26/2022 13:29:08 08/23/20 22 08/26/2022 COMPR EHENS PAULO METAB OLIC PANEL ALT 16 U/L 6-29 normal Not Available [address], [address], 08/26/2022 13:29:08 08/23/20 22 08/26/2022 LIPID PANEL , STAND HAKAN cholesterol, total 228 mg/dL <200 high Not Available [address], [address], 08/26/2022 13:29:07 08/23/20 22 08/26/2022 LIPID PANEL , STAND HAKAN HDL cholesterol 54 mg/dL > or = 50 normal Not Available [address], [address], 08/26/2022 13:29:07 08/23/20 22 08/26/2022 LIPID PANEL , STAND HAKAN triglyceride s 198 mg/dL <150 high Not Available [address], [address], 08/26/2022 13:29:07 08/23/20 22 08/26/2022 LIPID PANEL [...] 9): 2061- 2068 (http ://ed ucati on.Qu Scan•Jour. com/f aq/FA Q164) Not Available [facility] [address] [address] [place], [address], 08/26/2022 13:29:07 08/23/20 22 08/26/2022 LIPID PANEL , STAND HAKAN chol/HDLC ratio 4.2 (calc ) <5.0 normal Not Available [facility] [address] [address] [place], [address], 08/26/2022 13:29:07 08/23/20 22 08/26/2022 LIPID PANEL , STAND HAKAN non HDL cholesterol 174 mg/dL _(briseida c) <130 high For patie nts with diabe drew plus 1 major ASCVD risk facto r, treat ing to a non-H DL-C goal of <100 mg/dL (LDL- C of <70 mg/dL ) is consi dered a zee moon c optio n. Not Available [facility] [address] [address] [place], [address], 08/26/2022 13:29:07 06/18/20 23 06/19/2023 LIPID PANEL , STAND HAKAN cholesterol, total 172 mg/dL <200 normal Not Available [facility] [address] [address] [place], [address], 06/19/2023 02:40:28 06/18/20 23 06/19/2023 LIPID PANEL , STAND HAKAN HDL cholesterol 62 mg/dL > or = 50 normal Not Available [facility] [id number] [place] [address], [address], 06/19/2023 02:40:28 06/18/20 23 06/19/2023 LIPID PANEL , STAND HAKAN triglyceride s 144 mg/dL <150 normal Not Available [address], [address], 06/19/2023 02:40:28 06/18/20 23 06/19/2023 LIPID PANEL [...] 9): 2061- 2068 (http ://ed ucati on.Leidy ju[employer]. com/f aq/FA Q164) Not Available [address], [address], 06/19/2023 02:40:28 06/18/20 23 06/19/2023 LIPID PANEL , STAND HAKAN chol/HDLC ratio 2.8 (calc ) <5.0 normal Not Available [facility] [address] [place] [address], [address], 06/19/2023 02:40:28 06/18/20 23 06/19/2023 LIPID PANEL , STAND HAKAN non HDL cholesterol 110 mg/dL _(briseida c) <130 normal For patie nts with diabe drew plus 1 major ASCVD risk facto r, treat ing to a non-H DL-C goal of <100 mg/dL (LDL- C of <70 mg/dL ) is celestina jane n. Not Available [address] [address] [place], [address], 06/19/2023 02:40:28 01/12/20 24 01/13/2024 LIPID PANEL , STAND HAKAN cholesterol, total 142 mg/dL <200 normal Not Available [address] [address] [place], [address], 01/13/2024 02:56:53 01/12/2001/13/2024 LIPID PANEL , STAND HAKAN HDL cholesterol 60 mg/dL > or = 50 normal Not Available [address] [address] [place], [address], 01/13/2024 02:56:53 01/12/20 24 01/13/2024 LIPID PANEL , STAND HAKAN triglyceride s 107 mg/dL <150 normal Not Available [facility] [address] [address] [place], [address], 01/13/2024 02:56:53 01/12/2001/13/2024 LIPID PANEL , STAND [...] 2061- 2068 (http ://ed ucati on.Qu estDi [employer]uity [employer]. com/f aq/FA Q164) Not Available [facility] [address] [address], [place], [address], 01/13/2024 02:56:53 01/12/20 24 01/13/2024 LIPID PANEL , STAND HAKAN chol/HDLC ratio 2.4 (calc ) <5.0 normal Not Available [facility] [address] [address], [place], [address], 01/13/2024 02:56:53 01/12/20 24 01/13/2024 LIPID PANEL , STAND HAKAN non HDL cholesterol 82 mg/dL _(briseida c) <130 normal For patie nts with diabe drew plus 1 major ASCVD risk facto r, treat ing to a non-H DL-C goal of <100 mg/dL (LDL- C of <70 mg/dL ) is consi siomara hernandez thera peuti c optio n. Not Available [facility] [address] [address], [place], [address], 01/13/2024 02:56:53 06/28/20 22 06/28/2022 MAMMO , scree jori, bilat eral No observ ation record ed. [id number] [facility] [address], [place], [address], 11/06/2022 07:39:39 07/11/20 23 07/11/2023 MAMMO , scree jori, bilat eral No observ ation record ed. [facility] [address], [place], [address], 07/16/2023 12:40:51 Result Notes None recorded. Problems Name Problem SNOMED Code Status Onset Date Resolution Date Notes Provider Name and Address Organization Details Recorded Time Herpes labialis 1640663 Active Not Available [facility] 3 07:31:39 Shoulder joint pain 023430844 Active Not Available [facility] 3 07:31:39 Recurrent herpes simplex 09243153 Active Not Available [facility] 3 07:31:39 Vertigo 723085883 Active 2021 Not Available [facility] 3 07:31:40 Onychomycosis 683255546 Active 2019 Not Available [facility] 3 07:31:40 Impetigo 67941763 Active Not Available [facility] 3 07:31:40 Upper respiratory infection 35329705 Active Not Available [facility] 3 07:31:40 Hyperlipidemi a 72027675 Active 2019 Not Available [facility] 3 07:31:40 Disorder of bursa of shoulder region 56933361 Active Not Available [facility] 3 07:31:40 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 Procedures Surgical History Date Name Laterality Status Provider Name and Address Organization Details Recorded Time 07/11/20 23 Most Recent Mammogram completed Vivian Gomez NP [address] [place], [place] [address]jennifer [facility] [address], [place], [address], [facility] 07/15/2023 18:21:56 05/23/20 16 colonoscopy completed Not Available [facility] 11/06/2022 07:26:50 09/08/19 12 Colonoscopy completed Not Available [facility] 11/06/2022 07:26:50 09/08/19 08 Cholecystectomy completed Not Available [facility] 11/06/2022 07:26:50 09/08/19 07 Colonoscopy completed Not Available [facility] 11/06/2022 07:26:50 09/08/19 02 Colonoscopy completed Not Available [facility] 11/06/2022 07:26:50 Imaging Results Imaging Date Name Status LastModified by Organiz ation Details LastModified Time 06/28/2022 MAMMO, screening, bilateral completed [id number] [address] [place] [address] [facility] [address], [place], [address], 11/06/2022 07:39:39 07/11/2023 MAMMO, screening, bilateral completed [facility] [address], [place], [address], 07/16/2023 12:40:51 Procedure Notes None recorded. Medical [...] Available Not Available Not Available Afluria Qd 2019- (36 mos up)(PF)60 mcg (15 mcg x4)/0.5 mL IM syringe ADM 0.5ML IM UTD active Not Available Not Available No t Available Vitals Date Recorded Body mass index (BMI) Body height Oxygen saturation Oxygen saturation in Arterial blood by Pulse oximetry Heart rate Body temperature Body weight Systolic blood pressure Diastolic blood pressure Provider Name and Address Organization Details Last Updated DateTime 2 27.2 kg/m2 167.64 cm 97 % 97 % 82 /min 97 [degF] 71131.9 7 g 122 mm[Hg] 84 mm[Hg] Not Available [facility] 3 07:27:56 Date Recorded Body mass index (BMI) Body height Oxygen saturation Oxygen saturation in Arterial blood by Pulse oximetry Heart rate Respiratory rate Body temperature Body weight Systolic blood pressure Diastolic blood pressure Provider Name and Address Organization Details Last Updated DateTime 2 26.5 kg/m2 167.64 cm 99 % 99 % 72 /min 16 /min 97.7 [degF] 26749.1 5 g 124 mm[Hg] 82 mm[Hg] Not Available [facility] 3 07:27:56 Date Recorded Body weight Body mass index (BMI) Body height Body temperature Heart rate Respiratory rate Oxygen saturation Oxygen saturation in Arterial blood by Pulse oximetry Pain severity - 0-10 verbal numeric rating [Score] - Reported Systolic blood pressure Diastolic blood pressure Provider Name and Address Organization Details Last Updated DateTime 3 52185.6 9 g 25.6 kg/m2 167.64 cm 96.9 [degF] 72 /min 20 /min 97 % 97 % 0 118 mm[Hg] 70 mm[Hg] Vivian Suresh RN [place] [facility] 16:59:23 Social History Question Answer Notes LastModified by Organization Details LastModified Time Tobacco Smoking Status Never Smoker Not Available [facility] 11/06/2022 07:26:33 Do You Have An Advance Directive? Yes Information not available 05/20/2023 What Is Your Level Of Alcohol Consumption? Occasional MIGRATION.0301 [id number] Information not available 11/06/2022 Do You Wear A Helmet When Biking? No MIGRATION.0301 [id number] Information not available 11/06/2022 Is Blood Transfusion Acceptable In An Emergency? Yes Information not available 05/20/2023 What Is Your Level Of Caffeine Consumption? Moderate MIGRATION.0301 [id number] Information not available 11/06/2022 What Is Your Code Status? Full Code Information not available 05/20/2023 In The 14 Days Before Symptom Onset, Have You Had Close Contact With A Laboratory-confi rmed COVID-19 While That Case Was Ill? No MIGRATION.0301 [id number] Information not available 11/06/2022 In The 14 Days Before Symptom Onset, Have You Had Close Contact With A Person Who Is Under Investigation For COVID-19 While That Person Was Ill? No MIGRATION.0301 [id number] Information not available 11/06/2022 What Type Of Diet Are You Following? 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 Yes Limiting Where She Goes MIGRATION.0301 [id number] Information not available 11/06/2022 Do You Use Insect Repellent Routinely? Yes MIGRATION.0301 [id number] Information not available 11/06/2022 Do You Have A Medical Power Of Edge Polisher? Yes Information not available 05/20/2023 Have You Ever Been Counseled For Unhealthy Alcohol Use? No MIGRATION.0301 122017 Information not available 11/06/2022 Do You Have Any Pets? No MIGRATION.0301 [id number] Information not available 11/06/2022 What Is Your Relationship Status? MIGRATION.0301 185026 Information not available 11/06/2022 Do You Use Your Seat Belt Or Car Seat Routinely? Yes MIGRATION.0301 563551 Information not available 11/06/2022 Do You Have Smoke And Carbon Monoxide Detectors In Your Home? Yes MIGRATION.0301 053371 Information not available 11/06/2022 Are There Any Smokers In Your House? No MIGRATION.0301 161453 Information not available 11/06/2022 Do You Participate In Social Flayr? Yes MIGRATION.0301 763756 Information not available 11/06/2022 What Types Of Sporting Activities Do You Participate In? Walk Information not available 05/20/2023 Do You Feel Stressed (tense, Restless, Nervous, Or Anxious, Or Unable To Sleep At Night)? [id number] MIGRATION.0301 463315 Information not available 11/06/2022 Do You Use Any Illicit Or Recreational Drugs? No MIGRATION.0301 121150 Information not available 11/06/2022 Do You Use Sunscreen Routinely? Yes MIGRATION.0301 861392 Information not available 11/06/2022 Has Tobacco Cessation Counseling Been Provided? No MIGRATION.0301 688352 Information not available 11/06/2022 Have You Recently Traveled Abroad? No MIGRATION.0301 226804 Information not available 11/06/2022 Do You Have Any Dietary Restrictions? No MIGRATION.0301 747862 Information not available 11/06/2022 Do You Or Have You Ever Used Any Other Forms Of Tobacco Or Nicotine? No MIGRATION.0301 761309 Information not available 11/06/2022 Sex: Unknown Functional Status Question Answer Note LastModified by Organization D etails LastModified Time What is your exercise level? None Information not available 05/20/2023 Mental Status None recorded. Family History Relationship Description Onset Age of this Age Resolved Age Notes LastModified by Organization Details LastModified Time Maternal Grandmother Diabetes mellitus deceas ed MIGRATION.690 [id number] Not available 11/06/2022 07:26:52 Paternal Uncle Malignant tumor of lung deceas ed MIGRATION.640 [id number] Not available 11/06/2022 07:26:52 Paternal Uncle Malignant neoplasm of liver deceas ed MIGRATION.629 [id number] Not available 11/06/2022 07:26:52 Father Malignant tumor of colon MIGRATION.347 [id number] Not available 11/06/2022 07:26:52 Father Malignant neoplasm of liver deceas ed MIGRATION.327 [id number] Not available 11/06/2022 07:26:52 Paternal Aunt Malignant neoplasm of liver deceas ed MIGRATION.412 [id number] Not available 11/06/2022 07:26:52 Brother Cirrhosis of liver MIGRATION.620 [id number] Not available 11/06/2022 07:26:52 Medical History Condition Response ARTHRITIS Y HEADACHES/MIGRAINES Y ALLERGIES/HAYFEVER Y ANXIETY DISORDER Y Gynecological History Statement/Question [...] quadrivalent, PF 3 completed Vivian Suresh RN null, [place] [facility] [place] [facility] 07/01/2023 16:07:53 Influenza, split virus, trivalent, preservative 7 completed Not Available [facility] 11/06/2022 07:39:17 zoster, unspecified formulation 8 completed Not Available [facility] 11/06/2022 07:39:17 Influenza, split virus, trivalent, preservative 5 completed Not Available [facility] 11/06/2022 07:39:17 COVID-19, mRNA, LNP-S, PF, 100 mcg/0.5mL dose or 50 mcg/0.25mL dose 1 completed Not Available [facility] 11/06/2022 07:39:17 COVID-19, mRNA, LNP-S, PF, 100 mcg/0.5mL dose or 50 mcg/0.25mL dose completed Not Available [facility] hospital 11/06/2022 07:39:18 Influenza, split virus, quadrivalent, preservative 9 completed Not Available [facility] 11/06/2022 07:39:18 Tdap 9 completed Not Available [facility] 11/06/2022 07:39:18 Influenza, split virus, trivalent, preservative 4 completed Not Available [facility] 11/06/2022 07:39:18 Td(adult) unspecified formulation 9 completed Not Available [facility] 11/06/2022 07:39:18 Tdap 9 completed Not Available [facility] 11/06/2022 07:39:18 Past Encounters Encounter ID Performer Location Encounter Start Date Encounter Closed Date Diagnosis/Indication Diagnosis SNOMED-CT Code Diagnosis ICD10 Code Diagnosis Note [id number] [facility] [address] [place], [place] [address] [place] [address] 05/04/2021 00:00:00 05/04/2021 19:09:13 [id number] [facility] [address] [place], [place] [address] [place] [address] 07/05/2021 00:00:00 07/05/2021 18:22:54 [id number] [facility] [place] [address] 08/08/2021 00:00:00 08/08/2021 17:51:21 [id number] [facility] [address] [facility] [place] [address] 12/04/2021 00:00:00 12/04/2021 16:13:48 [id number] [facility] [place] [address] 12/25/2021 00:00:00 12/25/2021 16:01:00 [id number] [facility] [address] [address] 04/10/2022 00:00:00 04/10/2022 14:43:[id number] [address] 05/15/2022 00:00:00 05/15/2022 15:26:18 [id number] Vivian Gomez NP [address] [address] 05/20/2023 16:47:36 05/20/2023 18:06:27 Adult health examination 847220763 Z00.00 Encouraged well balanced meals, active lifestyle, and routine vision and dental appts. Hyperlipidemia 00593023 E78.5 Lipid panel repeatRosu vastatin 5 mg po nightly [id number] Vivian Gomez NP [address] [address] 07/01/2023 11:50:23 07/01/2023 13:53:33 Administration of influenza vaccine 80578681 Z23 Health Concerns Section Related Observation LastModified by Organization Detai ls LastModified Time None Recorded Concern Status LastModified by Organization Details LastModified Time None Recorded Advance Directives Directive Y: Payers Encounter Date Sequence Insurance Name Policy Number Policy [place] Covered Member ID [place] Member ID Guarantor Name 05/20/2023 1 [place] [id number] 1 Shanna Schumacher Deblock [id number] Shanna Schumacher Deblock 07/01/2023 1 [place] [id number] 1 Shanna Schumacher Deblock [id number] Shanna Schumacher Deblock Notes Date Note Type Note Provider Name [...] n vaginal done. Vivian Gomez NP [address], [place], [address], [place] [facility] 05/20/2023 18:04:05 OBGyn Episode No OBEpisode recorded.
--- OUTSIDE RECORDS SUMMARY | 2024-11-20 11:11 | XMS_ITS | Encounter Summary ---
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 Name Role Phone Unavailable Primary Care Provider Unavailabl e Encounter Details Date Type Department Care Team (Late st Contact Info) Description 12/01/2023 Lab Requisition [facility] - DermPath Lab [address] [facility], [place] [address] Phuong Abdi DO [address] [facility] 3 [place] [address] Social History Tobacco Use Types Packs/Day Years [...] PM CDT) Case Report Dermatopathology Report Case: [id number] Authorizing Provider: Phuong Abdi DO Collected: 12/01/2023 04:04 PM Ordering Location: [facility] - Received: 12/02/2023 01:21 PM DermPath Lab [...] of a non-oriented ellipse of skin measuring 45a56x4 mm. The margin is inked green. The [...] characteristic determined by the Dermatopathology Laboratory at [facility], directed by Dr. Danie Dukes. These tests need not be, and therefore are not, approved by the [place] Food and Drug Administration. The tests are used for clinical purposes. Billing Codes Specimen Charges Stain Charges 39043 1 06860 1 10:48 AM CDT DERMATOPATHOLOGY LABORATORY Embedded Images 10:48 AM CDT DERMATOPATHOLOGY LABORATORY Pathology/Cytolo gy TISSUE SPECIMEN FROM SKIN / Unknown 12/01/2023 4:04 PM CDT 12/02/2023 1:21 PM CDT Phuong Abdi DO LAB - PATHOLOGY/C YTOLOGY ORDERABLES DERMATOPATHOLOGY LABORATORY [facility] - Department of Dermatology [address], [address] Floor [address] [phone] documented in this encounter Visit Diagnoses Not on filedocumented in this encounter
[2024-11-20 11:19] VITALS: BP 106/49; PULSE 83; RESP 16; TEMP 36.6; O2SAT 98
--- NOTE | 2024-11-20 11:41 | ED.URI ---
HPI - URI/Sore Throat General Chief Complaint: Upper Respiratory Infection Stated Complaint: chest congestion History of Present Illness HPI Narrative: 64-year-old female presents today with complaints cough congestion Body aches chills and fever that started night. Patient denies any nausea vomiting diarrhea. Patient has been using some sort of Mucinex cold and flu to help with symptoms but still does not feel well. Known sick contact with a friend that had been sick for a couple days on Friday or . MD elicited complaint: fever and cough Related Data Home Medications ?Medication ?Instructions ?Recorded ?Confirmed ?Last Taken ?Type estradiol 0.025 mg/24 hr 11/20/24 Unknown History semiweekly transdermal patch progesterone micronized 100 mg mg 11/20/24 Unknown History capsule Allergies Allergy/AdvReac Type Severity Reaction Status Date / Time No Known Allergies Allergy Verified 11/20/24 11:20 Review of Systems Review of Systems: All systems reviewed & are unremarkable except as noted in HPI and below Eyes: Eyes: Reports as per HPI ENT: Reports as per HPI Cardiovascular: Cardiovascular: Reports as per HPI Respiratory: Respiratory: Reports as per HPI Genitourinary: Genitourinary: Reports as per HPI Musculoskeletal: Musculoskeletal: Reports as per HPI Integumentary/Breasts: Skin/Breast: Reports as per HPI Neurologic: Reports as per HPI Psychiatric: Psychiatric: Reports as per HPI Endocrine: Endocrine: Reports as per HPI Hematologic/Lymphatic: Hematologic/Lymphatic: Reports as per HPI Allergic/Immunologic: Allergic/Immunologic: Reports as per HPI PMFSH Past Medical History Medical History Hyperlipidemia Surgical History Surgical History Hx of cholecystectomy Family History Family History Father Cancer Social History Social History Social History: patient declined SDOH 05/11/24 Smoking status: Never smoker Alcohol intake: current Substance use: never Do You Feel Safe in your Home?: Yes Lack of Transportation: No Lack of Food: Never True Current Housing: I Have Housing Concerned About Future Housing: No Difficulty Paying Gas/Electric Bills: No Difficulty Paying for Meds: No Currently Unemployed: No Education: Don't Know Difficulty w/ Childcare or Family Care: No Living arrangements: with family Additional living arrangements comments: Occupation/Education: retired Spiritual care concerns: No Agree to blood products: Yes Exam Const: General: cooperative, healthy appearing, comfortable, no acute distress and well developed Orientation/consciousness: patient oriented x3 HENMT: Head: normal to inspection Eyes: General: appearance normal, both eyes and all related structures Resp: Effort & Inspection: normal respiratory effort and able to speak in complete sentences Auscultation: clear to auscultation bilaterally Cardio: Rate: regular rate Rhythm: regular rhythm Heart sounds: S1 normal heart sound present and S2 normal heart sound present Skin: General skin exam: normal color Neuro: General: patient oriented x3 Cognition (Neuro): normal cognition Speech: normal speech Psych: Mental Status: mental status grossly normal Course Course Level of Care: Express Care Visit Vital Signs Vital signs: Vital Signs Temperature 97.9 F 11/20/24 11:19 Pulse Rate 83 11/20/24 11:19 Respiratory Rate 16 11/20/24 11:19 Blood Pressure 106/49 L 11/20/24 11:19 Pulse Oximetry 98 11/20/24 11:19 Oxygen Delivery Room Air 11/20/24 11:19 Temperature 97.9 F 11/20/24 11:19 Pulse Rate 83 11/20/24 11:19 Respiratory Rate 16 11/20/24 11:19 Blood Pressure 106/49 L 11/20/24 11:19 Pulse Oximetry 98 11/20/24 11:19 Oxygen Delivery Room Air 11/20/24 11:19 MDM - URI/Sore Throat MDM Narrative Medical decision making narrative: 64-year-old female HPI is noted. Differentials include But not limited to upper respiratory tract infection sinusitis, influenza, pneumonia. COVID and flu swabs completed. Influenza A positive. Low suspicion for pneumonia lungs are clear at this time will treat with Tamiflu as patient's symptoms started night. Treat other symptoms as they arise. Did discuss options with the patient. Differential Diagnosis Differential diagnosis: Likely upper respiratory infection, otitis media, viral infection and influenza Medical Records Attestation: I reviewed the patient's medical records. Lab Data Labs: Lab Results 11/20/24 Range/Units 12:01 POC Influenza A Ag Positive (Negative) POC Influenza B Ag Negative (Negative) POC SARS CoV-2 Ag Negative (Negative) Discharge Plan Discharge Clinical Impression: Influenza A Patient Disposition: Home, Self-Care Condition: Stable Instructions: Antibiotic Form, Influenza (DC) Additional Instructions: . Positive for influenza a today. Please start Tamiflu as soon as you pick it up. Treat other symptoms as they arise. If your Mucinex cold and flu is working please continue to use that if it stops working may use the benzonatate as cough and guaifenesin to help thin out secretions. Tylenol or ibuprofen as needed for pain or fever. Return with any urgent concerns. To the ER with any worsening of symptoms such as severe shortness of breath or chest pain. Patient Language: Icelandic Prescriptions: New oseltamivir [Tamiflu] 75 mg capsule 75 mg PO Q12H 5 Days Qty: 10 0RF benzonatate 100 mg capsule See Rx Instructions .ROUTE .COMPLEX PRN (Reason: cough) Qty: 30 0RF Rx Instructions: 1-2 tablets as needed 3 times a day for cough guaifenesin 400 mg tablet 400 mg PO QID PRN (Reason: congestion) Qty: 20 0RF No Action progesterone micronized 100 mg capsule estradiol 0.025 mg/24 hr patch semiweekly rosuvastatin 5 mg tablet 5 mg PO DAILY Qty: 90 1RF cetirizine [Zyrtec] 10 mg tablet 10 mg PO DAILY Qty: 1 0RF Follow-up/Referrals: Vivian Gomez APRN [Primary Care Provider] - Time of Disposition: 12:05
[2024-11-20 12:06] LABS: EDCOVIDSCREEN Negative (Negative); EDINFLUASCREEN Positive (Negative); EDINFLUBSCREEN Negative (Negative)
== END 2024-11-20 12:13 | disposition home or self-care (01) ==
PROVIDERS: Emergency Provider Nurse Practitioner Family; PCP Nurse Practitioner Family
DX: J10.1 Influenza due to other identified influenza virus with other respiratory manifestations (principal); Z20.822 Contact with and (suspected) exposure to COVID-19; E78.5 Hyperlipidemia, unspecified
CPT/HCPCS: 87426; 87804; 99213; G0463

== ENCOUNTER 2025-08-03 10:22 | Outpatient (CLI) | payer MEDICARE, SELFPAY ==
--- NOTE | ~2025-08-03 | MM_ITS ---
EXAMINATION: MM screening gerald BI w mgadi HISTORY: Screening. TECHNIQUE: Craniocaudal and mediolateral oblique 3-D tomosynthesis images were obtained and synthetic 2-D images were generated. CAD analysis was submitted and interpreted. COMPARISON: 2023, 2022, and 2021. BREAST PARENCHYMAL COMPOSITION: Dense: The breast tissue is heterogeneously dense, which may obscure small masses. FINDINGS: There are findings consistent with the known breast cysts. No suspicious masses are seen. There are no suspicious calcifications. No unexplained architectural distortion is seen. There are no skin or nipple abnormalities identified. There is no adenopathy seen on the images submitted. IMPRESSION: No mammographic evidence to suggest malignancy is seen. The patient may return to screening mammography as per ACR guidelines. BI-RADS: 2 - Benign. Reviewed, dictated and finalized at location B. ALLY RESPONSIBLE INVESTMENT ADVISER
--- OUTSIDE RECORDS SUMMARY | 2025-08-03 11:11 | XMS_ITS | Encounter Summary ---
Author Organization [facility] Address [address] [place] [address] Care Team Providers Care Warehouse And Receiving Supervisor Name Role Phone Unavailable Primary Care Provider Unavailabl e Encounter Details Date Type Department Care Team (Late st Contact Info) Description 11/06/2023 Lab Requisition [facility] - DermPath Lab [address] [facility], [place] [address] Phuong Abdi DO [address] [facility] 3 [place] [address] Social History Tobacco Use Types Packs/Day Years Used Date Smoking Tobacco: Never Assessed Comments Unknown Sex and Gender Information Value Date Recorded Sex Assigned at Not on file Legal Sex Female 9:40 AM CDT Gender Identity Not on file Sexual Orientation Not on file documented as of this encounter Plan of Treatment Not on file documented as of this encounter Procedures Procedure Name Priority Date/Time Associated Diagnosis Comments DERMATOPATHOLOGY Routine 11/06/2023 11:1 7 AM COOKING TEACHER documented in this encounter Results * DERMATOPATHOLOGY (11/06/2023 11:17 AM COOKING TEACHER) Case Report Dermatopathology Report Case: [id number] Authorizing Provider: Phuong Abdi DO Collected: 11/06/2023 11:17 AM Ordering Location: [facility] - Received: 11/10/2023 06:48 AM DermPath Lab Pathologist: Aziza Dukes MD Specimens: A) - Skin, right upper back B) - Skin, right upper arm 2:36 PM COOKING TEACHER DERMATOPATHOLOGY LABORATORY Final Diagnosis Specimen A. SKIN, right upper back: BASAL CELL CARCINOMA, SUPERFICIAL MULTIFOCAL (C44.519) Specimen B. 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 Jar 0. 2:36 PM [facility] DERMATOPATHOLOGY LABORATORY Microscopic Description Specimen A. SKIN, right upper back: Attached to the undersurface of the epidermis, there are small aggregates of basaloid cells with a high nuclear to cytoplasmic ratio and peripheral palisading. Specimen B. SKIN, right upper arm: The epidermis shows parakeratosis, full thickness disorderly maturation of keratinocytes, mitoses at different levels, and dyskeratotic cells. 2:36 PM [facility] DERMATOPATHOLOGY LABORATORY Disclaimer An external and internal [...] purposes. Billing Codes Specimen Charges Stain Charges 06954 98109 1 1 4 2:36 PM [facility] DERMATOPATHOLOGY LABORATORY Embedded Images 2:36 PM [facility] DERMATOPATHOLOGY LABORATORY Pathology/Cytology TISSUE SPECIMEN FROM SKIN / Unknown 11/06/2023 11:17 AM COOKING TEACHER 11/10/2023 6:48 AM COOKING TEACHER Miscellaneous samples (specimen) TISSUE SPECIMEN FROM SKIN / Unknown 11/06/2023 11:17 AM COOKING TEACHER 11/10/2023 6:48 AM COOKING TEACHER Phuong Abdi DO LAB - PATHOLOGY/CYTOLOGY ORDERABLES Final Result DERMATOPATHOLOGY LABORATORY [facility] - Department of Dermatology [facility] [address] [place] [address], [address] [phone] documented in this encounter Visit Diagnoses Not on filedocumented in this encounter
--- OUTSIDE RECORDS SUMMARY | 2025-08-03 11:11 | XMS_ITS | Encounter Summary ---
Author Organization [facility] Address [address] [place] [address] Care Team Providers Care Sales Representative Facility Services Name Role Phone Unavailable Primary Care Provider Unavailabl e Encounter Details Date Type Department Care Team (Late st Contact Info) Description 11/20/2023 Lab Requisition [facility]ician [facility] - DermPath Lab [address] [facility], [place] [address] Phuong Abdi DO [address] [facility] 3 [place] [address] Social History Tobacco Use Types Packs/Day Years [...] PM CDT) Case Report Dermatopathology Report Case: [id number] Authorizing Provider: Phuong Abdi DO Collected: 11/20/2023 01:23 PM Ordering Location: [facility] - Received: 11/24/2023 06:38 AM DermPath Lab Pathologist: Carley Dockery MD Specimen: Skin, right upper arm 4:35 PM CDT DERMATOPATHOLOGY LABORATORY Final Diagnosis Specimen A. 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 Check margins. 4 4:35 PM CDT DERMATOPATHOLOGY LABORATORY Gross Description Specimen A: Received is one formalin filled container labeled with the patient's name and designated right upper arm. The specimen consists of a non-oriented ellipse of skin measuring 24e29j7 mm. The margin is inked green. The [...] characteristic determined by the Dermatopathology Laboratory at [facility], directed by Dr. Danie Dukes. These tests need not be, and therefore are not, approved by the [place] Food and Drug Administration. The tests are used for clinical purposes. Billing Codes Specimen Charges Stain Charges 03754 1 4 4:35 PM CDT DERMATOPATHOLOGY LABORATORY Embedded Images 4 4:35 PM CDT DERMATOPATHOLOGY LABORATORY Pathology/Cytolo gy TISSUE SPECIMEN FROM SKIN / Unknown 11/20/2023 1:23 PM CDT 11/24/2023 6:38 AM CDT us Phuong Abdi DO LAB - PATHOLOGY/CYTOLOGY ORDERABLES Final Result DERMATOPATHOLOGY LABORATORY [facility] - Department of Dermatology [address], [address] [phone] documented in this encounter Visit Diagnoses Not on filedocumented in this encounter
--- OUTSIDE RECORDS SUMMARY | 2025-08-03 11:11 | XMS_ITS | Encounter Summary ---
Author Organization [facility] Address [address] [place] [address] Care Team Providers Care Locator Name Role Phone Unavailable Primary Care Provider Unavailabl e Encounter Details Date Type Department Care Team (Late st Contact Info) Description 12/09/2024 Lab Requisition [facility]ician [facility] - DermPath Lab [address] [facility], [place] [address] Phuong Abdi DO [address] [facility] 3 [place] [address] Social History Tobacco Use Types Packs/Day Years [...] Priority Date/Time Associated Diagnosis Comments DERMATOPATHOLOGY Routine 12/09/2024 2:29 PM CDT documented in this encounter Results * DERMATOPATHOLOGY (12/09/2024 2:29 PM CDT) Case Report Dermatopathology Report Case: [id number] Authorizing Provider: Phuong Abdi DO Collected: 12/09/2024 02:29 PM Ordering Location: [facility] - Received: 12/13/2024 06:12 AM DermPath Lab Pathologist: Aziza Dukes MD Specimen: Skin, left ant LE 4:30 PM CDT DERMATOPATHOLOGY LABORATORY Final Diagnosis Specimen A. SKIN, left ant LE: SQUAMOUS CELL CARCINOMA, WELL DIFFERENTIATED (C44.729) 4:30 PM CDT DERMATOPATHOLOGY LABORATORY at 1630 CDT Clinical History R/O NMSC 4:30 PM CDT DERMATOPATHOLOGY LABORATORY Gross Description Specimen A: Received is one formalin filled container labeled with the patient's name and designated left ant LE. The specimen consists of a shave biopsy measuring 8x6x2 mm. Jar 0. 4:30 PM CDT DERMATOPATHOLOGY LABORATORY Microscopic Description Specimen A. SKIN, left ant LE: Arising in the epidermis and extending into the dermis there are irregularly shaped aggregates of keratinocytes showing evidence of premature cornification. 4:30 PM CDT DERMATOPATHOLOGY LABORATORY Disclaimer An external and internal positive and negative controls are appropriate for the histochemical, immunohistochemical and immunofluorescence stain(s) in this case (if any), except where stated explicitly. The performance characteristics of the stain(s) cited in this report were developed and its performance characteristic determined by the Dermatopathology Laboratory at [facility], directed by Dr. Danie Dukes. These tests need not be, and therefore are not, approved by the [place] Food and Drug Administration. The tests are used for clinical purposes. Billing Codes Specimen Charges Stain Charges 99729 1 4:30 PM CDT DERMATOPATHOLOGY LABORATORY Embedded Images 4:30 PM CDT DERMATOPATHOLOGY LABORATORY Pathology/Cytolo gy TISSUE SPECIMEN FROM SKIN / Unknown 12/09/2024 2:29 PM CDT 12/13/2024 6:12 AM CDT us Phuong Abdi DO LAB - PATHOLOGY/CYTOLOGY ORDERABLES Final Result DERMATOPATHOLOGY LABORATORY [facility] - Department of Dermatology [address] [place] [address], [facility] [phone] documented in this encounter Visit Diagnoses Not on filedocumented in this encounter
--- OUTSIDE RECORDS SUMMARY | 2025-08-03 11:11 | XMS_ITS | Clinical Summary ---
Author Organization [facility] Address [address] [place] [id number] Care Team Providers Care Crew Leader Gluing Name Role Phone Unavailable Primary Care Provider [...] 1 - Tdap) 1977 Mammogram Screening 1998 Pneumococcal Vaccine: 50+ Ye ars (1 of 1 - PCV) 2008 Zoster Vaccines (1 of 2) 2008 Dexa Scan (General) 2023 COVID-19 Vaccine ( - 2024-2 6 season) 2025 Influenza Adult (#1) 2025 RSV Immunization or 60+ Years (1 - 1-dose 75+ series) 2033 Hepatitis A Vaccines Aged Out No long er eligible based on patient's age to complete this topic Meningococcal B Vaccine Aged Out No l onger eligible based on patient's age to complete this topic Meningococcal Vaccine Aged Out No marissa xenia eligible based on patient's age to complete this topic RSV Immunizations Under 20 Months Aged Out No longer eligible based on patient's age to complete this topic
--- OUTSIDE RECORDS SUMMARY | 2025-08-03 11:11 | XMS_ITS | Clinical Summary ---
Author Organization [facility] Address [address] [place] [address] Care Team Providers Care Plastics Plater Name Role Phone Unavailable Primary Care Provider Unavailabl e Source Comments [facility] [employer],non-owned Affiliates and Associated Physician Practices is amultiple site organization consisting of ambulatory clinics and hospital sitesin [place], [place], [place] and [place]. This disclosure is being madepursuant to the Care Everywhere program and may not contain all information available regarding this patient. Last updated 18.[facility] [employer] Encounters Date Type Department Care Team Description 06/23/2025 Lab Requisition [facility] Physician Group - DermPath Lab [address] [place] [address] Phuong Abdi DO Neoplasm of uncertain behavior of skin from Last 3 Months Social History Tobacco Use Types Packs/Day Years [...] 2008 ZOSTER VACCINE (1 of 2) 2008 DEPRESSION SCREENING 09/08/2024 MEDICARE AWV CALENDAR YEAR 2024 COVID-19 VACCINE ( - 2024-2 6 season) 2025 INFLUENZA VACCINE (#1) 2025 Respiratory Syncytial Virus (RSV) Vaccine Pt: or [...] on patient's age to complete this topic Procedures Procedure Name Priority Date/Time Associated Diagnosis Comments DERMATOPATHOLOGY Routine 06/23/2025 1:30 PM CDT Neoplasm of uncertain behavior of skin from Last 3 Months Results * DERMATOPATHOLOGY (06/23/2025 1:30 PM CDT) Case Report Dermatopathology Report Case: [id number] Authorizing Provider: Phuong Abdi DO Collected: 06/23/2025 01:30 PM Ordering Location: [facility]ician [facility] - Received: 06/27/2025 01:47 PM DermPath Lab Pathologist: Carley Dockery MD Specimen: Skin, right post upper arm 1:40 PM CDT DERMATOPATHOLOGY LABORATORY Final Diagnosis Specimen A. SKIN, right post upper arm: HEALING SKIN CHANGES AND EROSION (L90.5) (see microscopic description) 1:40 PM CDT DERMATOPATHOLOGY LABORATORY at 1340 CDT Clinical History Neoplasm of uncertain behavior vs. Irritated Seborrheic Keratosis vs. PN 1:40 PM CDT DERMATOPATHOLOGY LABORATORY Gross Description Specimen A: Received is one formalin filled container labeled with the patient's name and designated right post upper arm. The specimen consists of a shave biopsy measuring 7x7x1 mm. Jar 0. 10/21/202 5 1:40 PM CDT DERMATOPATHOLOGY LABORATORY Microscopic Description Specimen A. SKIN, right post upper arm: There is epidermal hyperplasia beneath which there are vascular proliferation, fibroblasts, and an edematous stroma. The epidermis is focally necrotic and covered with a scale-crust. There is fibrin at the base. 1:40 PM CDT DERMATOPATHOLOGY LABORATORY Disclaimer An external and internal positive and negative controls are appropriate for the histochemical, immunohistochemical and immunofluorescence stain(s) in this case (if any), except where stated explicitly. The performance characteristics of the stain(s) cited in this report were developed and its performance characteristic determined by the Dermatopathology Laboratory at [facility], directed by Dr. Danie Dukes. These tests need not be, and therefore are not, approved by the [place] Food and Drug Administration. The tests are used for clinical purposes. Billing Codes Specimen Charges Stain Charges 53147 1 1:40 PM CDT DERMATOPATHOLOGY LABORATORY Embedded Images 1:40 PM CDT DERMATOPATHOLOGY LABORATORY Pathology/Cytolo gy TISSUE SPECIMEN FROM SKIN / Unknown 06/23/2025 1:30 PM CDT 06/27/2025 1:47 PM CDT Phuong Abdi DO LAB - PATHOLOGY/CYTOLOGY ORDERABLES Final Result DERMATOPATHOLOGY LABORATORY [facility] Department of Dermatology [facility] Medicine [address] [place] [address], [address] [phone] from Last 3 Months Insurance [employer] MEDICARE ADV
--- OUTSIDE RECORDS SUMMARY | 2025-08-03 11:11 | XMS_ITS | Encounter Summary ---
Author Organization [facility] Address [address] [place] [address] Care Team Providers Care Landing Support Specialist Name Role Phone Unavailable Primary Care Provider Unavailabl e Encounter Details Date Type Department Care Team (Late st Contact Info) Description 06/01/2024 Lab Requisition [facility]ician Group - DermPath Lab [address] [facility], [place] [address] Phuong Abdi DO [address] [facility] 3 [place] [address] Social History Tobacco Use Types Packs/Day Years [...] PM CDT) Case Report Dermatopathology Report Case: [id number] Authorizing Provider: Phuong Abdi DO Collected: 06/01/2024 02:21 PM Ordering Location: [facility] Physician [facility] - Received: 06/02/2024 12:12 PM DermPath Lab Pathologist: Liya Dockery MD Specimen: Skin, right earlobe 4:30 PM CDT DERMATOPATHOLOGY LABORATORY Final Diagnosis Specimen A. SKIN, right earlobe: BASAL CELL CARCINOMA, INFILTRATIVE PATTERN (C44.212) 4 4:30 PM CDT DERMATOPATHOLOGY LABORATORY at 1630 CDT Clinical History R/O BCC 4:30 PM CDT [...] characteristic determined by the Dermatopathology Laboratory at [facility], directed by Dr. Danie Dukes. These tests need not be, and therefore are not, approved by the [place] Food and Drug Administration. The tests are used for clinical purposes. Billing Codes Specimen Charges Stain Charges 46862 1 4:30 PM CDT DERMATOPATHOLOGY LABORATORY Embedded Images 4:30 PM CDT DERMATOPATHOLOGY LABORATORY Pathology/Cytolo gy TISSUE SPECIMEN FROM SKIN / Unknown 06/01/2024 2:21 PM CDT 06/02/2024 12:12 PM CDT Phuong Abdi DO LAB - PATHOLOGY/CYTOLOGY ORDERABLES Final Result DERMATOPATHOLOGY LABORATORY [facility] - Department of Dermatology [address] [place] [address], [facility] [phone] documented in this encounter Visit Diagnoses Not on filedocumented in this encounter
--- OUTSIDE RECORDS SUMMARY | 2025-08-03 11:11 | XMS_ITS | Data Portability ---
Author Organization [facility], Marija [place] Address [address] [place] [address] [place] [address] Assessment Encounter Date Assessment Date Assessment LastModified by Organization Details LastModified Time 05/22/2023 05/22/2023 Annual gynecological exam performed. Patient will come back in a year unless there are new symptoms. [email or web address] Not available 05/22/2023 16:03:42 08/12/2024 08/12/2024 Annual gynecological exam performed. Patient will come back in a year unless there are new symptoms. Not available 08/12/2024 14:03:33 Plan of Treatment Reminders Order Date Submit Date Provider Last Modified By Organization Details Last Modified Time Details Appointments [facility] 2024 09:30A M ERIK Sharma Not available Not available Not available Lab None recorded. Referral None recorded. Procedures None recorded. Surgeries dilation and curettage with hysterosc opy (SURG) 2022 023 [email or web address] [facility], [address], [place], [address], 10/05/2022 10:58:48 Imaging US, transvagi nal 2023 024 [email or web address] [place], [address], [address], [place], [address], 08/20/2024 19:53:43 DEXA, axial skeleton + vertebral fracture assessmen t 2023 024 [email or web address] Not available 06/09/2025 16:53:00 US, pelvis, complete 2023 024 [facility], [address], [address], [place], [address], 03/06/2025 05:01:25 MAMMO, screening , bilateral 2022 023 [facility], [address], [place], [address], 07/11/2023 17:34:15 Medication Orders estradiol 0.025 mg/24 hr semiweekl y transderm al patch 2023 024 [id number], [address] [place], [address], 08/12/2024 15:14:19 Prometriu m 100 mg capsule 2023 024 [facility]2510, [address], [place], [address], 08/12/2024 15:14:19 estradiol 0.5 mg tablet 2022 023 [facility]57768, [address], [place], [place], [id number], 08/12/2024 15:14:21 Prometriu m 200 mg capsule 2022 023 [facility] #40104, [address], [place], [place], [id number], 08/12/2024 15:14:29 Yale 10 mg-325 mg tablet 2022 [facility]23 [facility], [address], [place], [place], [id number], 05/22/2023 15:49:26 Xanax 0.5 mg tablet 2022 023 [facility] #94100, [address], [place], [place], [id number], 05/22/2023 15:50:34 Zofran 8 mg tablet 2022 023 [facility] #88198, [address], [place], [place], [id number], 05/22/2023 15:50:53 ibuprofen 800 mg tablet 2022 023 [facility] #99531, [address], [place], [place], [id number], 05/22/2023 15:49:33 progester one micronize d 100 mg capsule [address] [facility] #43963, [address], [place], [place], [id number], 05/22/2023 16:20:49 Patient TargetsNo targets recorded. Patient InstructionsNo instructions recorded. Reason for Referral None Reported. Results Created Date Observation Date Name Description Value Unit Range Abnormal Flag Note LastModifiedBy Organization Detail LastModifiedTime 10/14/19 23 10/14/2022 SURGI BRISEIDA PATHO LOGY surgical pathology SEE [...] benig n ectoc ervic al mucos a. Elect hans jeronimo zach d by Hans Snyder MD on 023 at 2:17 PM ----- ----- ----- ----- ----- ----- ----- ----- ----- ----- ----- ----- ----- ----- ----- ----- ----- ---- CLINI BRISEIDA INFOR MATIO N: icd 10 n93.9 MICRO SCOPI C DESCR IPTIO N: A micro scopi c exami natio n was perfo rmed. GROSS DESCR IPTIO N: A. Jovanny daniels The speci men is label ed with the patie nt's name, le chun and EMB . Recei zo in forma kiersten is a 2.0 x 2.0 x 0.5 [address] of mucus and dark red tissu e. The entir e speci men is submi tted in one casse tte. 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 Elect hans jeronimo zach d by Viet Lira , NOREEN on [...] is recom carolyn d, as clini veena patel nted. Not Available [facility] (Lab) [address], [place], [address], 05/27/2023 15:46:55 08/12/20 24 08/12/2024 IMAGE GUIDE D PAP AND HPV REGAR DLESS image guided Pap, HPV regardless of Pap result SEE RESULT S BELOW CASE REPOR T: Cytol ogy Gynec ologi briseida Repor t Case: [id number] Autho price dorado Provi tomer: Alyssa Ayers, BEAR Colle cted: 08/12 1411 Order ing Locat ion: [place] Patho logy Recei zo: 08/13 0845 First Carline n: Juan Manuel Mendoza ed, CT Speci [...] epith elial Tyron cohen or Jarret khan ([facility]) . Elect hans serrano d by Juan Manuel Mendoza ed, CT on [...] is recom carolyn d, as clini veena patel nted. Not Available [facility] (Lab) [address], [place], [address], 08/21/2024 20:49:41 07/11/20 23 07/11/2023 MAMMO , scree jori, bilat eral No observ ation record ed. [facility] [address], [place], [address], 08/24/2024 16:31:11 08/20/20 24 08/20/2024 US, trans vagin al No observ ation record ed. [email or web address] [place] [address], [place], [address], 08/25/2024 10:30:52 08/20/20 24 08/20/2024 US, trans vagin al No observ ation record ed. [email or web address] Marisa [address], [place], [address], 08/25/2024 10:30:53 Result Notes None recorded. Problems Name Problem SNOMED Code Status Onset Date Resolution Date Notes Provider Name and Address Organization Details Recorded Time Urinary tract infectio us disease 49120311 Completed 201105/15/2021 Urinary Tract Infection ;Recorded Elsewhere : No Locati on: [facility] So urce: EHR Chron ic: N Practic e ID: 0001 Bill able Time: 04:00:00 PM Chetna [facility] 1 17:17:48 Adult health examinat ion Completed 201205/15/2021 Routine Medical Exam;Balaji rded Elsewhere : No Locati on: [facility] So urce: EHR Chron ic: N Practic e ID: 0001 Bill able Time: 04:30:00 PM Chetna Cline [facility] 1 17:17:23 Speciali zed medical examinat ion Completed 201305/15/2021 Gynecolog ical Examinati on;Record ed Elsewhere : No Locati on: [facility] So urce: EHR Chron ic: N Practic e ID: 0001 Bill able Time: 04:30:00 PM Chetna Cline [facility] 1 17:17:46 Screenin g for malignan t neoplasm of cervix Completed 201405/15/2021 Pap Smear;Pra ctice ID: 0001 Chetna pruett [facility] 17:17:35 Screenin g for malignan t neoplasm of rectum Completed 201405/15/2021 Screening for malignant neoplasms of the rectum;Pr actice ID: 0001 Chetna pruett [facility] 17:17:37 Leukocyt osis [id number] Completed 201405/15/2021 LEUKOCYTO SIS NOS;Recor ded Elsewhere : No Locati on: [facility] So urce: EHR Chron ic: N Practic e ID: 0001 Bill able Time: 04:30:00 PM Chetna pruett [facility] 17:17:32 Overweig ht [id number] Completed 201405/15/2021 Overweigh t;Practic e ID: 0001 Chetna Cline [facility] 17:17:33 Blood leukocyt e number above referenc e range [id number] Completed 201505/15/2021 Elevated white blood cell count, unspecifi ed;Practi ce ID: 0001 [facility] Concept Completed 201505/15/2021 Encntr for substance abuse therapist exam (general) (routine) w/o abn findings; Practice ID: 0001 Chetna pruett [facility] 17:17:44 Body mass index 25-29 - overweig ht [id number] Completed 201505/15/2021 Body mass index (BMI) 26.0-26.9 , adult;Rec orded Elsewhere : No Locati on: [facility] So urce: EHR Chron ic: N Practic e ID: 0001 Bill able Time: 04:00:00 PM Chetna pruett [facility] 17:17:27 Atypical squamous cells of undeterm ined signific ance on cervical Papanico laou smear [id number] Completed 201505/15/2021 Atyp squam cell of undet signfc cyto smr crvx (ASC-US); Recorded Elsewhere : No Locati on: [facility] So urce: EHR Chron ic: N Practic e ID: 0001 Bill able Time: 10:02:14 AM Chetna Cline [facility] 17:17:25 Evaluati on finding Completed 201505/15/2021 Hematuria , unspecifi ed;Record ed Elsewhere : No Locati on: [facility] So urce: EHR Chron ic: N Practic e ID: 0001 Bill able Time: 02:29:08 PM Chetna Cline [facility] 17:17:[address] Concept Completed 201605/15/2021 Encntr for general adult medical exam w/o abnormal findings; Practice ID: 0001 Chetna Cline [facility] 17:17:41 Problem Notes None recorded. Procedures Surgical History Date Name Laterality Status Provider Name and Address Organization Details Recorded Time 05/23/20 23 Date of Last Pap Smear completed Elva Moreno [facility] 08/12/2024 14:08:02 10/14/19 23 Hysteroscopy completed Dmitri Dumas MD [address], [place], [address], [facility] 10/14/2022 15:21:00 08/28/20 22 Endometrial Biopsy completed Danika Carson [facility]- [address], [place], [address], [facility] 08/28/2022 12:49:13 06/28/20 22 Date of Last Mammogram completed Felicia Beth [facility] 05/22/2023 15:51:49 09/08/19 19 Date of Last Colonoscopy completed Felicia Beth [facility] 05/22/2023 15:53:04 09/08/19 19 Colonoscopy completed Flavia [facility] 05/12/2020 12:00:21 03/24/20 18 completed Chetna Cline [facility] 05/15/2021 17:20:25 09/08/19 12 Colonoscopy completed Flavia [facility] 05/12/2020 12:00:03 procedure on gallbladder completed [facility] 05/12/2020 11:59:47 Imaging Results None recorded. Procedure Notes None recorded. Medical Equipment None Reported. Allergies Allergen ID Allergen Name Allergen Category Reaction Reaction Severity Criticality Documentation Date Start Date Code Code System Note Provider Name and Address Organization Details Recorded Time 1948 ragweed pollen environme nt Not available Not available Not available 05/12/2020 Flavia Lemon [facility], [facility] 0 11:56:11 No known drug [...] Prescrib ed Elsewher e: Yes [facility] odify By: marisabel castillo DateTime : [...] tion: [facility] odify By: marisabel Martell ter DateTime : 12/30/19 12 04:00:00 PM Not [...] Prescrib ed Elsewher e: Yes [facility] By: mt Martellte r DateTime : 03/20/20 17 04:30:00 PM Not Available Not Available Not Available Vagifem 10 mcg vaginal tablet insert 1 tablet by vaginal route 2 times every week 12/29 completed Prescrib ed Elsewher e: Yes Loca tion: [facility] odify By: [email or web address] castillo DateTime : 12/30/19 12 04:00:00 PM Not Available Not Available Not Available Picato 0.015 % topical gel 05/12 completed Not Available Not Available Not Available vitamin E succinate 134 mg (200 unit) tablet 03/20 completed Prescrib ed Elsewher e: Yes Loca tion: [facility] odify By: lorenzo hook DateTime : 12/30/19 12 04:00:00 PM Not Available Not Available Not Available Fluzone Quad 60 mcg (15 mcg x 4)/0.5 mL intramusc ular susp. 05/12 completed Not Available Not Available Not Available Lyllana 0.025 mg/24 hr transderm al patch Apply 1 patch topicall y to the skin 2 times weekly 2024 active Not Available Not Available Not Avai lable Vitals Date Recorded Body height Body mass index (BMI) Body weight Systolic And Diastolic Provider Name and Address Organization Details Last Updated DateTime 09/30/2022 165.1 cm 27.1 kg/m2 54140.56 g 108/68 mm[Hg] Kristin Mathis [facility] 09/30/2022 14:49:53 Date Recorded Body height Body mass index (BMI) Body weight Systolic And Diastolic Provider Name and Address Organization Details Last Updated DateTime 10/14/2022 165.1 cm 27.1 kg/m2 51122.56 g 122/62 mm[Hg] Felicia [facility] 10/14/2022 14:26:26 Date Recorded Systolic And Diastolic Provider Name and Address Organization Details Last Updated DateTime 05/22/2023 124/76 mm[Hg] Danika Carson, [facility]- [address], [place], [address], [facility] 05/22/2023 17:04:50 Date Recorded Body height Body mass index (BMI) Body weight Systolic And Diastolic Provider Name and Address Organization Details Last Updated DateTime 05/22/2023 165.1 cm 26.3 kg/m2 19273.59 g 140/90 mm[Hg] Felicia Beth [facility] 05/22/2023 16:07:57 Date Recorded Body height Body mass index (BMI) Body weight Systolic And Diastolic Provider Name and Address Organization Details Last Updated DateTime 08/12/2024 165.1 cm 27.1 kg/m2 84778.56 g 108/70 mm[Hg] Elva Moreno [facility] 08/12/2024 14:07:24 Social History Question Answer Notes LastModified by Organizat ion Details LastModified Time Tobacco Smoking Status Never Smoker Kiara pruett, [facility] 10/14/2022 14:16:14 Do You Have An Advance Directive? No Information n ot available 05/16/2021 Are You Blind Or Do You Have Difficulty Seeing? No Information n ot available 05/16/2021 What Is Your Level Of Caffeine Consumption? Moderate Information not available 05/16/2021 How Much Tobacco Do You Chew? None Information not available 05/16/2021 In The 14 Days Before Symptom Onset, Have You Had Close Contact With A Laboratory-confirm ed COVID-19 While That Case Was Ill? No Information n ot available 05/16/2021 In The 14 Days Before [...] Of Diet Are You Following? REGULAR Information n ot available 05/16/2021 What Is The Highest Grade Or Level Of School You Have Completed Or The Highest Degree You Have Received? [id number] Information not available 05/16/2021 Are There Any [...] IV Drugs? No Information not available 05/16/2021 Do You Have Difficulty Walking Or Climbing Stairs? No [email or web address] Information not available 10/14/2022 Sex: Female Functional Status Question Answer Note LastModified by Organizat ion Details LastModified Time Do you use any illicit or recreational drugs? No Information not available 05/16/2021 What is your level of alcohol consumption? Occasional [id number] Information not available 07/11/2020 Are you able to walk independently without assistance or assistive devices? YESWOREST Information not available 05/16/2021 Are you able to care for yourself independently? 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 No [email or web address] Information not available 10/14/2022 What is your exercise level? Moderate Information not available 05/16/2021 Mental Status Question Answer Note LastModified by Organization D etails LastModified Time Do you feel stressed (tense, restless, nervous, or anxious, or unable to sleep at night)? [id number] Information not available 05/16/2021 Family History Relationship Description Onset Age of this Age Resolved Age Notes LastModified by Organization Details LastModified Time Father Malignant neoplasm of colon [email or web address] Not available 2019 11:58:27 [...] Diagnosis SNOMED-CT Code Diagnosis ICD10 Code Diagnosis IMO Codes Diagnosis Note [id number] [facility] [address] [address] 05/12/2020 11:41:34 05/12/2020 12:33:04 Mass of left breast 4910680684 1515416 N63.20 Z12.31 Gynecologi c examination 36547773 Z01.419 Take Calcium with Vitamin D 12-1500mg daily. Do monthly self breast exams. It is advised to get annual flu shot in the fall and she could obtain at [facility] or [facility] take care clinic. If you haven't received the [...] respond to this email Climacteric flushing 427 768635 N95.1 Taking HRT every other day. [place]king [...] migraine w/ visual changes, breast cancer dx, AL/stroke, DVT/PE, Endometria l cancer. Please contact office with any new or worsening side effects or adverse reactions. Or if a medical emergency please go to nearest ED/Urgency care for further evaluation . [id number] Danika Carson , [facility] [address] [address] 05/16/2021 16:36:14 05/16/2021 18:22:13 Gynecologic examination 10915289 Z01.419 Take Calcium with Vitamin D 12-1500mg daily. Do monthly self breast exams. It is advised to get annual flu shot in the fall and she could obtain at [facility] or [facility] care clinic. If [...] test.Last dex 2018 wnlColon-U TD Menopausal symptom 25586 002 N95.1 Tried to wean off last year but kept having hot flashes, irritabili ty return.We again discussed R/B's of continuing this HRT therapy.Sh e understand s the risks & opts to continue.S he will continue taking daily vs taking every other day as she was last year. Urinary symptoms 4560179 08 R39.9 [id number] Danika Carson [facility] [address] [address] 05/20/2022 11:56:53 05/20/2022 12:20:40 Gynecologic examination 84418028 Z01.419 Z11.51 Take Calcium with Vitamin D 12-1500mg daily. Do monthly self breast exams. It is advised to get annual flu shot in the fall and she could obtain at [facility] or [facility] care clinic. If [...] Labs PCPMammo ordered Hormone re placement therapy 180905682 Z79.890 N95.1 Counseled on the following: Females >10yrs past menopause (& age 60yo+) are generally not good candidates for starting (1st use) systemic HT. Decisions to continue systemic HT > a decade past menopause (or past age 60yo) requires balancing R/B's; & individual ized needs. Non-hormon al options may be more appropriat e for females >10yrs past menopause. [id number] ERIK Ma-[facility] [address] [address] 08/19/2022 09:54:20 08/19/2022 11:08:11 Abnormal uterine bleeding 5097640449 9100 N93.9 PMB x 2wks spotting, brownishCh [...] All questions answered to patient satisfacti on. [id number] Dmitri Dumas MD [place] [address] [address] 08/26/2022 10:21:26 08/26/2022 11:11:28 Postmenopausal bleeding 94296694 N95.0 [id number] [facility] [address] [address] 08/28/2022 12:09:39 08/28/2022 12:50:20 Postmenopausal bleeding 99165559 N95.0 Reviewed US results today.Not further sx's [...] care not including time spent on procedure. [id number] Dmitri Dumas MD [place] [address] [place] [address] 09/30/2022 14:19:06 09/30/2022 16:22:45 Postmenopausal bleeding 87476021 N95.0 this patient is a 62-year-ol d [...] will be in the office. Preoperative state 84223 002 Z78.9 [id number] Dmitri Dumas MD [place] [address] [address] 10/14/2022 14:14:02 10/14/2022 15:24:45 Postmenopausal bleeding 13205476 N95.0 Hysterosco py D&C completed without complicati ons. well tolerated [id number] Danika Carson , [facility] [address] [address] 05/22/2023 16:01:40 05/22/2023 17:14:34 Gynecologic examination 03819170 Z01.419 Z11.51 Take Calcium with Vitamin D 12-1500mg daily. Do monthly self breast exams. It is advised to get annual flu shot in the fall and she could obtain at [facility] or [facility]. [...] Screen PCPRoutine Labs PCPMammo ordered Menopausal symptom 38921 002 N95.1 Tried to wean off last [...] weaning based on age. Screening mammography 24 405907 Z12.31 [id number] Alyssa CorreasbERIK [place] [address] [address] 08/12/2024 13:47:13 08/12/2024 15:16:59 Gynecologic examination 34802037 Z01.419 WWEpostmen opausalPap - updatedSTI screen - [...] estions have been answered. Screening for osteoporosis 350132907 Z13.820 Hormone re placement therapy 527432951 Z79.890 Discussed HRT, reviewed with patient the importance of taking progestero ne if taking estrogen. Reviewed risk of unopposed estrogen.r ecommended pelvic u/s since she has been taking estrogen aloneshe would like to continue on HRTwill switch to transderma l estradiol with nightly oral prometrium r/b/a reviewed [id number] Dmitri Dumas MD [place] [address] [address] 08/20/2024 16:25:24 08/20/2024 17:12:29 Endometrium thickened 497694267 R93.89 Health Concerns Section Related Observation LastModified by Organization Detai ls LastModified Time None Recorded Concern Status LastModified by Organization Details LastModified Time None Recorded Advance Directives Directive N: Payers Insurance Date Sequence Insurance Name Policy Number Policy [place] Covered Member ID [place] Member ID Guarantor Name 04/12/2024 1 [place] Shanna Hawthorne [id number] [facility] [employer] 04/12/2024 1 freee Shanna Hawthorne [id number] [facility] 04/12/2024 1 [facility] (PPO) Shanna Hawthorne [id number] Shanna Hawthorne 04/12/2024 1 [facility] [id number] Shanna Hawthorne [id number] Shanna Hawthorne 04/12/[address] [facility] Shanna Hawthorne [id number] Shanna Hawthorne 08/19/2024 1 [employer] [id number] Shanna Hawthorne [id number] Shanna Hawthorne 06/25/2024 1 [employer] [id number] 1 Shanna Hawthorne [id number] Shanna Hawthorne Notes Date Note Type Note [...] this issue. We spent over 40 minutes [id number]. Made a decision to perform surgery. I explained hysteroscopy and D&C to her in great detail detail. I explained risks, benefits, and alternatives. We talked about endometrial cancer. We talked about postmenopausal bleeding. Talked about hormone replacement therapy and the risks. She will return for hysteroscopy D&C. This will be in the office. Dmitri Dumas MD [address], [place], [address], [facility] 09/30/2022 15:36:54 3 text/html 62-year-old female with postmenopausal bleeding who failed endometrial biopsy in the office with a Pipelle. She returns for office hysteroscopy D&C. Dmitri Dumas MD [address], [place], [address], [facility] 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 For vaginal bleeding, patient reportshistory of menopause having occurredandno history of post menopausal bleeding. For urinary symptoms, patient reportsno hematuria,no incontinence,no nocturia, andno urinary frequency. For vulva, patient reportsno genital lesionandno vulvar atrophy. For vagina, patient reportsnormal vaginal dischargeandno vaginal atrophy.Breast symptomsFor breast, patient reportsno breast lump,no nipple discharge, andno breast pain.Psychological symptomsFor sexual complaints, patient reportsno sexual complaints. For psychological symptoms, patient reportsno depressionandno anxiety.Preventative measuresFor preventive measures, patient reportsencourage regular mammograms starting age 40,encourage self breast examination,encourage regular exercise,encourage no tobacco use,needs to schedule mammogram, andhistory of recent colonoscopy. Danika Carson, BEAR- [address], [place], [address], [facility] 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 For vaginal bleeding, patient reportshistory of menopause having occurredandno history of post menopausal bleeding. For urinary symptoms, patient reportsno hematuria,no incontinence,no nocturia, andno urinary frequency. For vulva, patient reportsno genital lesionandno vulvar atrophy. For vagina, patient reportsnormal vaginal dischargeandno vaginal atrophy.Breast symptomsFor breast, patient reportsno breast lump,no nipple discharge, andno breast pain.Psychological symptomsFor sexual complaints, patient reportsno sexual complaints. For psychological symptoms, patient reportsno depressionandno anxiety.Preventative measuresFor preventive measures, patient reportsencourage regular mammograms starting age 40,encourage self breast examination,encourage regular exercise,encourage no tobacco use, andmammogram performed within the past year.63yo wwepostmenopausallast pap 05/2023 : nilm, HPV (-)mammogram UTDcolonoscopy UTDdexa - scheduled next month was on estradiol-norethindrone combination tablet for hot flashes. Last year switched to estradiol 0.5mg tablet and daily oral prometrium 200mg. She states she has only been taking the estradiol 0.5mg tablet daily alone and is not taking the prometrium.wants to continue on HRT, has tried to wean off in the past and hot flashes return Alyssa Ayers, [place] [address], [place], [address], [facility] 08/12/2024 15:15:24 OBGyn Episode Ob Episode Information Episode Created Date Number of Fetuses Patient Bloodtype Patient rh Status Prepregnancy Weight lbs Domestic Partner Domestic Partner Phone Father Name Ocean Clam Boat Captain Status 05/12/20 20 1 CLOSED Fetus Data [...] Domestic Partner Domestic Partner Phone Father Name Ocean Clam Boat Captain Status 05/12/20 20 1 CLOSED Fetus Data [...] Domestic Partner Domestic Partner Phone Father Name Ocean Clam Boat Captain Status 05/12/20 20 1 CLOSED Fetus Data [...] Domestic Partner Domestic Partner Phone Father Name Ocean Clam Boat Captain Status 05/12/20 20 1 CLOSED Fetus Data [...]
--- OUTSIDE RECORDS SUMMARY | 2025-08-03 11:11 | XMS_ITS | Encounter Summary ---
Author Organization [facility] Address [address] [place] [address] Care Team Providers Care Town Clerk Name Role Phone Unavailable Primary Care Provider Unavailabl e Encounter Details Date Type Department Care Team (Late st Contact Info) Description 06/23/2025 Lab Requisition [facility] - DermPath Lab [address] [facility] [place] [address] Phuong Abdi DO [address] [facility] [address] [place] [address] Neoplasm of uncertain behavior of skin Social History Tobacco Use Types Packs/Day Years [...] CDT Neoplasm of uncertain behavior of skin documented in this encounter Results * DERMATOPATHOLOGY (06/23/2025 1:30 PM CDT) Case Report Dermatopathology Report Case: [id number] Authorizing Provider: Phuong Abdi DO Collected: 06/23/2025 01:30 PM Ordering Location: [facility] Physician [facility] - Received: 06/27/2025 01:47 PM DermPath Lab [...] shave biopsy measuring 7x7x1 mm. Jar 0. 1:40 PM CDT DERMATOPATHOLOGY LABORATORY Microscopic Description [...] characteristic determined by the Dermatopathology Laboratory at [facility], directed by Dr. Danie Dukes. These tests need not be, and therefore are not, approved by the [place] Food and Drug Administration. The tests are used for clinical purposes. Billing Codes Specimen Charges Stain Charges 92367 1 1:40 PM CDT DERMATOPATHOLOGY LABORATORY Embedded Images 1:40 PM CDT DERMATOPATHOLOGY LABORATORY Pathology/Cytolo gy TISSUE SPECIMEN FROM SKIN / Unknown 06/23/2025 1:30 PM CDT 06/27/2025 1:47 PM CDT us Phuong Abdi DO LAB - PATHOLOGY/CYTOLOGY ORDERABLES Final Result DERMATOPATHOLOGY LABORATORY [facility] - Department of Dermatology [address], [address] [phone] documented in this encounter Visit Diagnoses Diagnosis Neoplasm of uncertain behavior of skin documented in this encounter
--- OUTSIDE RECORDS SUMMARY | 2025-08-03 11:11 | XMS_ITS | Encounter Summary ---
Author Organization [facility] Address [address] [place] [address] Care Team Providers Care Intelligence Research Specialist Name Role Phone Unavailable Primary Care Provider Unavailabl e Encounter Details Date Type Department Care Team (Late st Contact Info) Description 04/08/2023 Lab Requisition [facility] - DermPath Lab [address] [facility], [place] [address] Phuong Abdi DO [address] [facility] [address] [place] [address] Social History Tobacco Use Types Packs/Day Years [...] AM CDT) Case Report Dermatopathology Report Case: [id number] Authorizing Provider: Phuong Abdi DO Collected: 04/08/2023 09:24 AM Ordering Location: [facility] DermPath Lab Received: 04/08/2023 03:25 PM Pathologist: Aziza Dukes MD Specimen: Skin, above left eyebrow 5:23 PM CDT DERMATOPATHOLOGY LABORATORY Final Diagnosis Specimen A. 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 The specimen consists of a shave biopsy measuring 6x5x1 mm. Jar 0. 3 5:23 PM CDT DERMATOPATHOLOGY LABORATORY Microscopic Description Specimen A. SKIN, above left eyebrow: The epidermis shows parakeratosis, full thickness disorderly maturation of keratinocytes, mitoses at different levels, and dyskeratotic cells. 3 5:23 PM CDT DERMATOPATHOLOGY LABORATORY Disclaimer An external and internal positive and negative controls are appropriate for the histochemical, immunohistochemical and immunofluorescence stain(s) in this case (if any), except where stated explicitly. The performance characteristics of the stain(s) cited in this report were developed and its performance characteristic determined by the Dermatopathology Laboratory at [facility], directed by Dr. Danie Dukes. These tests need not be, and therefore are not, approved by the [place] Food and Drug Administration. The tests are used for clinical purposes. Billing Codes Specimen Charges Stain Charges 77946 1 3 5:23 PM CDT DERMATOPATHOLOGY LABORATORY Embedded Images 3 5:23 PM CDT DERMATOPATHOLOGY LABORATORY Pathology/Cytolo gy TISSUE SPECIMEN FROM SKIN / Unknown 04/08/2023 9:24 AM CDT 04/08/2023 3:25 PM CDT Phuong Abdi DO LAB - PATHOLOGY/CYTOLOGY ORDERABLES Final Result DERMATOPATHOLOGY LABORATORY [facility] - Department of Dermatology [address] [place] [address], [facility] [phone] documented in this encounter Visit Diagnoses Not on filedocumented in this encounter
--- OUTSIDE RECORDS SUMMARY | 2025-08-03 11:11 | XMS_ITS | Encounter Summary ---
Author Organization [facility] Address [address] [place] [address] Care Team Providers Care Spool Maker Name Role Phone Unavailable Primary Care Provider Unavailabl e Encounter Details Date Type Department Care Team (Late st Contact Info) Description 03/15/2025 Lab Requisition [facility] - DermPath Lab [address] [facility] [place] [address] Phuong Abdi DO [address] [facility] [address] [place] [address] Social History Tobacco Use Types Packs/Day Years [...] Priority Date/Time Associated Diagnosis Comments DERMATOPATHOLOGY Routine 03/15/2025 2:38 PM CDT documented in this encounter Results * DERMATOPATHOLOGY (03/15/2025 2:38 PM CDT) Case Report Dermatopathology Report Case: [id number] Authorizing Provider: Phuong Abdi DO Collected: 03/15/2025 02:38 PM Ordering Location: [facility] - Received: 03/17/2025 09:02 AM DermPath Lab Pathologist: Liya Dockery MD Specimen: Skin, left intra auricular 12:33 PM CDT DERMATOPATHOLOGY LABORATORY Final Diagnosis Specimen A. SKIN, left intra auricular: BASAL CELL CARCINOMA, SUPERFICIAL MULTIFOCAL (C44.219) 12:33 PM CDT DERMATOPATHOLOGY LABORATORY at 1233 CDT Clinical History AK; R/O NMSC 12:33 PM CDT DERMATOPATHOLOGY LABORATORY Gross Description Specimen A: Received is one formalin filled container labeled with the patient's name and designated left intra auricular. The specimen consists of a shave biopsy measuring 5x4x1 mm. Jar 0. 12:33 PM CDT DERMATOPATHOLOGY LABORATORY Microscopic Description Specimen A. SKIN, left intra auricular: Attached to the undersurface of the epidermis, there are small aggregates of basaloid cells with a high nuclear to cytoplasmic ratio and peripheral palisading. 12:33 PM CDT DERMATOPATHOLOGY LABORATORY Disclaimer An external and internal positive and negative controls are appropriate for the histochemical, immunohistochemical and immunofluorescence stain(s) in this case (if any), except where stated explicitly. The performance characteristics of the stain(s) cited in this report were developed and its performance characteristic determined by the Dermatopathology Laboratory at [facility], directed by Dr. Danie Dukes. These tests need not be, and therefore are not, approved by the [place] Food and Drug Administration. The tests are used for clinical purposes. Billing Codes Specimen Charges Stain Charges 43594 1 12:33 PM CDT DERMATOPATHOLOGY LABORATORY Embedded Images 12:33 PM CDT DERMATOPATHOLOGY LABORATORY Pathology/Cytolo gy TISSUE SPECIMEN FROM SKIN / Unknown 03/15/2025 2:38 PM CDT 03/17/2025 9:02 AM CDT us Phuong Abdi DO LAB - PATHOLOGY/CYTOLOGY ORDERABLES Final Result DERMATOPATHOLOGY LABORATORY [facility] - Department of Dermatology [address] [place] [address], [facility] [phone] documented in this encounter Visit Diagnoses Not on filedocumented in this encounter
--- OUTSIDE RECORDS SUMMARY | 2025-08-03 11:11 | XMS_ITS | Encounter Summary ---
Author Organization [facility] Address [address] [place] [address] Care Team Providers Care Asphalt Heater Tender Name Role Phone Unavailable Primary Care Provider Unavailabl e Encounter Details Date Type Department Care Team (Late st Contact Info) Description 12/01/2023 Lab Requisition [facility] - DermPath Lab [address] [facility], [place] [address] Phuong Abdi DO [address] [facility] [address] [place] [address] Social History Tobacco Use Types Packs/Day Years [...] PM CDT) Case Report Dermatopathology Report Case: [id number] Authorizing Provider: Phuong Abdi DO Collected: 12/01/2023 04:04 PM Ordering Location: [facility] - Received: 12/02/2023 01:21 PM DermPath Lab Pathologist: Jeannie Alexander MD Specimen: Skin, right upper back 10:48 AM CDT DERMATOPATHOLOGY LABORATORY Final Diagnosis Specimen A. SKIN, right upper back: BASAL CELL CARCINOMA (C44.519) NOT PRESENT AT MARGIN DERMAL SCAR (L90.5) 10:48 AM CDT DERMATOPATHOLOGY LABORATORY at 1048 CDT Clinical History Bx Proven SCCIS. Check Margins 10:48 AM CDT DERMATOPATHOLOGY LABORATORY Gross Description Specimen A: Received is one formalin filled container labeled with the patient's name and designated right upper back. The specimen consists of a non-oriented ellipse of skin measuring 98c19u6 mm. The margin is inked green. The [...] perpendicular to the skin surface. 10:48 AM T DERMATOPATHOLOGY LABORATORY Disclaimer An external and internal positive and negative controls are appropriate for the histochemical, immunohistochemical and immunofluorescence stain(s) in this case (if any), except where stated explicitly. The performance characteristics of the stain(s) cited in this report were developed and its performance characteristic determined by the Dermatopathology Laboratory at [facility], directed by Dr. Danie Dukes. These tests need not be, and therefore are not, approved by the [place] Food and Drug Administration. The tests are used for clinical purposes. Billing Codes Specimen Charges Stain Charges 68361 1 22151 1 10:48 AM CDT DERMATOPATHOLOGY LABORATORY Embedded Images 10:48 AM CDT DERMATOPATHOLOGY LABORATORY Pathology/Cytolo gy TISSUE SPECIMEN FROM SKIN / Unknown 12/01/2023 4:04 PM CDT 12/02/2023 1:21 PM CDT us Phuong Abdi DO LAB - PATHOLOGY/CYTOLOGY ORDERABLES Final Result DERMATOPATHOLOGY LABORATORY [facility] - Department of Dermatology [address], [address] [phone] documented in this encounter Visit Diagnoses Not on filedocumented in this encounter
--- OUTSIDE RECORDS SUMMARY | 2025-08-03 11:11 | XMS_ITS | Clinical Summary ---
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 Gender Identity Not on file Sexual Orientation Not on file Plan of Treatment Health Maintenance Due Date Last Done Comments Hepatitis C Virus (HCV) Screening 1960 Cologuard 2003 Colonoscopy 2003 Colorectal Cancer Screening 2003 Immunochemical Fecal Occult Blood 2003 Pneumococcal Immunization (50+ years) (1 of 1 - PCV) 2008 Zoster Immunization (1 of 2) 2008 08/03/2018 Influenza Immunization (#1) 05/09/202506/08, 05/20/2020, 06/22/2019, Additional history exists SARS-COV-2 Immunization (2024- season) 2025 08/10/2021, 10/30/2020, 09/28/2020 Respiratory Syncytial Virus (RSV) Immunization (Adult) (1 - 1-dose 75+ series) 2033 DTaP/Tdap/Td Immunization Discontinued 04/30/2019 TdaP Immunization Completed 04/30/2019 Hepatitis B Immunization Aged Out No longer eligible based on patient's age to complete this topic Human Papillomavirus (HPV) Immunization Aged Out No longer eligible based on patient's age to complete this topic Meningococcal Immunization (ACWY) Aged Out No longer eligible based on patient's age to complete this topic Rotavirus Immunization Aged Out No lo nger eligible based on patient's age to complete this topic
== END 2025-08-03 10:23 | disposition home or self-care (01) ==
PROVIDERS: PCP Nurse Practitioner Family
DX: Z12.31 Encounter for screening mammogram for malignant neoplasm of breast (principal)
CPT/HCPCS: 77063; 77067